=== PATIENT | female | born 1945 | race Two or more races ===

== ENCOUNTER → 2022-04-12 10:01 | Outpatient (BNVA) | payer MEDICARE, SELFPAY | PROVIDERS: PCP Internal Medicine; Visit Provider Internal Medicine Endocrinology, Diabetes & Metabolism | DX: E11.29 Type 2 diabetes mellitus with other diabetic kidney complication (principal) | CPT/HCPCS: 82947; 99202 ==

== ENCOUNTER → 2022-04-13 12:56 | Outpatient (BNVA) | payer MEDICARE, SELFPAY | PROVIDERS: PCP Internal Medicine; Visit Provider Registered Nurse Diabetes Educator | DX: E11.29 Type 2 diabetes mellitus with other diabetic kidney complication (principal) | CPT/HCPCS: 99211 ==

== ENCOUNTER → 2022-05-15 12:51 | Outpatient (BNVA) | payer MEDICARE, SELFPAY | PROVIDERS: PCP Internal Medicine; Visit Provider Registered Nurse Diabetes Educator | DX: E11.29 Type 2 diabetes mellitus with other diabetic kidney complication (principal) | CPT/HCPCS: 99211 ==

== ENCOUNTER → 2022-05-23 10:54 | Outpatient (BNVA) | payer MEDICARE, SELFPAY | PROVIDERS: PCP Internal Medicine; Visit Provider Dietitian, Registered | DX: E11.29 Type 2 diabetes mellitus with other diabetic kidney complication (principal); Z71.3 Dietary counseling and surveillance | CPT/HCPCS: 97802 ==

== ENCOUNTER 2022-07-17 09:59 | Outpatient (REF) | payer MEDICARE, SELFPAY ==
[2022-07-17 11:36] LABS: Cholesterol 196 mg/dL; HDL Cholesterol 52 mg/dL; LDL Cholesterol Calculated 112 mg/dl; Triglycerides 161 mg/dL
== END 2022-07-17 10:00 | disposition home or self-care (01) ==
LOC: HO.LAB 09:59
PROVIDERS: PCP Internal Medicine; Visit Provider Internal Medicine Endocrinology, Diabetes & Metabolism
DX: E11.29 Type 2 diabetes mellitus with other diabetic kidney complication (principal)
CPT/HCPCS: 36415; 80061

== ENCOUNTER → 2022-07-20 08:15 | Outpatient (BNVA) | payer MEDICARE, SELFPAY | PROVIDERS: PCP Internal Medicine; Visit Provider Internal Medicine Endocrinology, Diabetes & Metabolism | DX: E11.29 Type 2 diabetes mellitus with other diabetic kidney complication (principal) | CPT/HCPCS: 82947; 83036; 99212 ==

== ENCOUNTER → 2022-08-03 10:48 | Outpatient (BNVA) | payer MEDICARE, SELFPAY | PROVIDERS: PCP Internal Medicine; Visit Provider Dietitian, Registered | DX: E11.29 Type 2 diabetes mellitus with other diabetic kidney complication (principal) | CPT/HCPCS: 97803 ==

== ENCOUNTER → 2022-08-06 10:18 | Outpatient (BNVA) | payer MEDICARE, SELFPAY | PROVIDERS: PCP Internal Medicine; Visit Provider Registered Nurse Diabetes Educator | DX: E11.29 Type 2 diabetes mellitus with other diabetic kidney complication (principal) | CPT/HCPCS: 99211 ==

== ENCOUNTER → 2022-08-29 10:24 | Outpatient (BNVA) | payer MEDICARE, SELFPAY | PROVIDERS: PCP Internal Medicine; Visit Provider Registered Nurse Diabetes Educator | DX: E11.29 Type 2 diabetes mellitus with other diabetic kidney complication (principal) | CPT/HCPCS: 99211 ==

== ENCOUNTER → 2022-09-24 09:20 | Outpatient (BNVA) | payer MEDICARE, SELFPAY | PROVIDERS: PCP Internal Medicine; Visit Provider Registered Nurse Diabetes Educator | DX: E11.29 Type 2 diabetes mellitus with other diabetic kidney complication (principal) | CPT/HCPCS: 99211 ==

== ENCOUNTER 2022-10-22 10:14 | Outpatient (REF) | payer MEDICARE, SELFPAY ==
[2022-10-22 12:04] LABS: Alanine Aminotransferase 43 U/L (0-31); Albumin Level 3.8 g/dL (3.5-5.0); Alkaline Phosphatase 135 U/L (39-117); Aspartate Amino Transferase 40 U/L (5-31); Bilirubin Direct < 0.2 mg/dL (0.0-0.5); Bilirubin Total 0.3 mg/dL (0.0-1.0); Cholesterol 177 mg/dL; HDL Cholesterol 52 mg/dL; LDL Cholesterol Calculated 92 mg/dl; Total Protein 6.8 g/dL (6.5-8.0); Triglycerides 167 mg/dL
== END 2022-10-22 10:15 | disposition home or self-care (01) ==
LOC: HO.LAB 10:14
PROVIDERS: PCP Internal Medicine; Visit Provider Internal Medicine Endocrinology, Diabetes & Metabolism
DX: E11.29 Type 2 diabetes mellitus with other diabetic kidney complication (principal)
CPT/HCPCS: 36415; 80061; 80076

== ENCOUNTER → 2022-10-23 08:20 | Outpatient (BNVA) | payer MEDICARE, SELFPAY | PROVIDERS: PCP Internal Medicine; Visit Provider Internal Medicine Endocrinology, Diabetes & Metabolism | DX: E11.22 Type 2 diabetes mellitus with diabetic chronic kidney disease (principal); N18.32 Chronic kidney disease, stage 3b; E11.649 Type 2 diabetes mellitus with hypoglycemia without coma; Z79.4 Long term (current) use of insulin; Z79.84 Long term (current) use of oral hypoglycemic drugs | CPT/HCPCS: 82947; 83036; 99212 ==

== ENCOUNTER → 2022-11-19 11:24 | Outpatient (BNVA) | payer MEDICARE, SELFPAY | PROVIDERS: PCP Student in an Organized Health Care Education/Training Program; Visit Provider Dietitian, Registered | DX: E11.29 Type 2 diabetes mellitus with other diabetic kidney complication (principal); N28.9 Disorder of kidney and ureter, unspecified; Z79.4 Long term (current) use of insulin; Z71.3 Dietary counseling and surveillance | CPT/HCPCS: 97803 ==

== ENCOUNTER → 2023-01-28 08:42 | Outpatient (BNVA) | payer MEDICARE, SELFPAY | PROVIDERS: PCP Student in an Organized Health Care Education/Training Program; Visit Provider Registered Nurse Diabetes Educator ==

== ENCOUNTER 2023-01-28 09:02 | Outpatient (REF) | payer MEDICARE, SELFPAY ==
[2023-01-28 11:42] LABS: Creatinine Urine 151.52 mg/dL
[2023-01-28 12:14] LABS: Anion Gap 14 (12-20); Blood Urea Nitrogen 45 mg/dL (9-16); Calcium 9.4 mg/dL (8.4-10.2); Carbon Dioxide 23 mmol/L (22-29); Chloride 109 mmol/L (96-108); Estimated Glomerular Filt Rate 26; Glucose Random 202 mg/dL (60-115); Sodium 141 mmol/L (135-145)
[2023-01-28 12:21] LABS: Microalbum/Creatinine Ratio Ur 1319.9 ug/mg cr; Microalbumin Urine > 2000.0 mg/L
== END 2023-01-28 09:03 | disposition home or self-care (01) ==
LOC: HO.10HDL 09:02
PROVIDERS: Visit Provider Internal Medicine Endocrinology, Diabetes & Metabolism
DX: E11.29 Type 2 diabetes mellitus with other diabetic kidney complication (principal)
CPT/HCPCS: 36415; 80048; 82043; 99211

== ENCOUNTER → 2023-02-05 09:13 | Outpatient (BNVA) | payer MEDICARE, SELFPAY | PROVIDERS: PCP Student in an Organized Health Care Education/Training Program; Visit Provider Internal Medicine Endocrinology, Diabetes & Metabolism | DX: E11.29 Type 2 diabetes mellitus with other diabetic kidney complication (principal) | CPT/HCPCS: 82947; 83036; 99212 ==

== ENCOUNTER 2023-04-29 13:10 | Outpatient (AMB) | payer MEDICARE, SELFPAY ==
--- NOTE | 2023-04-29 13:50 | A.OFFVIS_ITS ---
Intake Intake Visit Reasons: DM Allergies No Known Allergies Allergy (Verified 02/05/23 09:29) HPI Comprehensive Diabetes Asmnt Most Recent Diabetes Results: Microalb/Creat Ratio 1319.9 ug/mg cr 01/28/23 Cholesterol 177 mg/dL 10/22/22 HDL Cholesterol 52 mg/dL 10/22/22 Triglycerides 167 mg/dL 10/22/22 Creatinine 1.89 mg/dL (0.5-1.4) H 01/28/23 Blood Urea Nitrogen 45 mg/dL (9-16) H 01/28/23 Sodium 141 mmol/L (135-145) 01/28/23 Potassium 5.0 mmol/L (3.3-5.1) 01/28/23 Chloride 109 mmol/L (96-108) H 01/28/23 Carbon Dioxide 23 mmol/L (22-29) 01/28/23 Calcium 9.4 mg/dL (8.4-10.2) 01/28/23 AST 40 U/L (5-31) H 10/22/22 ALT 43 U/L (0-31) H 10/22/22 Total Protein 6.8 g/dL (6.5-8.0) 10/22/22 Albumin 3.8 g/dL (3.5-5.0) 10/22/22 [facility] Medical History (Updated 04/12/22 @ 10:21 by Freddie Padron MD) Type 2 diabetes mellitus with renal manifestations Surgical History History of colonoscopy History of hysterectomy History of surgery Hx of cholecystectomy Hx of microdiscectomy Family History Mother Diabetes High blood pressure Father Liver failure Social History Household Members: Spouse Alcohol intake: never Patient Tobacco Use Status: Never used Tobacco Assessment & Plan Assessment & Plan (1) Type 2 diabetes mellitus with renal manifestations: Code(s): E11.29 - Type 2 diabetes mellitus with other diabetic kidney complication Plan: Personal Continuous Glucose Monitor: Patients CGM information reviewed Reviewed patient's sensor data: Hypoglycemia: ? 5% Hyperglycemia:? 23% Time in Range:? 62% Average glucose for the last 2 weeks? 162 mg/dL Patient is taking Lantus 16 units daily Apidra 8-10 units before meals Patient has multiple episodes of hypoglycemia, both overnight and post meal Patient does report that she takes mealtime insulin up to 30 minutes before meals, reviewed with patient action of Apidra, instructed patient to mealtime insulin to 5 minutes prior to eating In addition instructed patient to reduce Lantus from 16 units to 14 units Reviewed how to treat low blood sugars with rule of 15s Reviewed how to interpret trend arrows Reminded patient that to check finger sticks if symptoms do not match sensor reading. Discussed lag time between finger stick and sensor data.? Patient able to insert sensor independently at home without issue.? Patient Instructions: Patient will follow-up with community nutrition educator in 1 month Coding Level of Care Code Est Pt Level 1 (50974) Diagnoses Type 2 diabetes mellitus with renal manifestations E11.29
== END 2023-04-29 13:58 | disposition home or self-care (01) ==
PROVIDERS: PCP Student in an Organized Health Care Education/Training Program; Referring Provider Internal Medicine Endocrinology, Diabetes & Metabolism; Visit Provider Registered Nurse Diabetes Educator
DX: E11.29 Type 2 diabetes mellitus with other diabetic kidney complication (principal)

== ENCOUNTER → 2023-04-29 13:10 | Outpatient (BNVA) | payer MEDICARE, SELFPAY | PROVIDERS: Visit Provider Registered Nurse Diabetes Educator | DX: E11.29 Type 2 diabetes mellitus with other diabetic kidney complication (principal) | CPT/HCPCS: 99211 ==

== ENCOUNTER 2023-05-30 13:45 | Outpatient (AMB) | payer MEDICARE, SELFPAY ==
--- NOTE | 2023-05-30 13:57 | A.OFFVIS_ITS ---
Intake Intake Visit Reasons: DM/confirmed District Supervisor Required: No Accompanied by: Self / Same As Patient Allergies No Known Allergies Allergy (Verified 02/05/23 09:29) HPI Comprehensive Diabetes Asmnt Most Recent Diabetes Results: Microalb/Creat Ratio 1319.9 ug/mg cr 01/28/23 Cholesterol 177 mg/dL 10/22/22 HDL Cholesterol 52 mg/dL 10/22/22 Triglycerides 167 mg/dL 10/22/22 Creatinine 1.89 mg/dL (0.5-1.4) H 01/28/23 Blood Urea Nitrogen 45 mg/dL (9-16) H 01/28/23 Sodium 141 mmol/L (135-145) 01/28/23 Potassium 5.0 mmol/L (3.3-5.1) 01/28/23 Chloride 109 mmol/L (96-108) H 01/28/23 Carbon Dioxide 23 mmol/L (22-29) 01/28/23 Calcium 9.4 mg/dL (8.4-10.2) 01/28/23 AST 40 U/L (5-31) H 10/22/22 ALT 43 U/L (0-31) H 10/22/22 Total Protein 6.8 g/dL (6.5-8.0) 10/22/22 Albumin 3.8 g/dL (3.5-5.0) 10/22/22 [facility] Medical History (Updated 04/12/22 @ 10:21 by Freddie Padron MD) Type 2 diabetes mellitus with renal manifestations Surgical History History of colonoscopy History of hysterectomy History of surgery Hx of cholecystectomy Hx of microdiscectomy Family History Mother Diabetes High blood pressure Father Liver failure Social History Household Members: Spouse Alcohol intake: never Patient Tobacco Use Status: Never used Tobacco Assessment & Plan Assessment & Plan (1) Type 2 diabetes mellitus with renal manifestations: Code(s): E11.29 - Type 2 diabetes mellitus with other diabetic kidney complication Plan: Personal Continuous Glucose Monitor: Did not bring meter to today's visit Patient reports she is feeling overwhelmed by the amount of appointments that she and her both have. 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 Patient reports she feels that her hypoglycemia has resolved. Instructed patient it is fine not to set up additional appointments. If she has questions or she feels she needs to be seen again she can always call and schedule an appointment. Asked patient to contact Diabetes Education nurse or provider if hypoglycemic events increase Patient Instructions: Patient will call Coding Level of Care Code Est Pt Level 1 (69547) Diagnoses Type 2 diabetes mellitus with renal manifestations E11.29
== END 2023-05-30 14:07 | disposition home or self-care (01) ==
PROVIDERS: PCP Student in an Organized Health Care Education/Training Program; Visit Provider Registered Nurse Diabetes Educator
DX: E11.29 Type 2 diabetes mellitus with other diabetic kidney complication (principal)

== ENCOUNTER → 2023-05-30 13:45 | Outpatient (BNVA) | payer MEDICARE, SELFPAY | PROVIDERS: PCP Student in an Organized Health Care Education/Training Program; Visit Provider Registered Nurse Diabetes Educator | DX: E11.29 Type 2 diabetes mellitus with other diabetic kidney complication (principal) | CPT/HCPCS: 99211 ==

== ENCOUNTER 2023-07-27 15:36 | Emergency (ER) | payer MEDICARE, SELFPAY ==
--- NOTE | ~2023-07-27 | XR_ITS ---
EXAMINATION: XR LUMBOSACRAL SPINE CLINICAL INFORMATION: Pain, no injury. COMPARISON: None available. TECHNIQUE: Three views of the lumbosacral spine. FINDINGS: Right apical scoliosis. No evidence of acute compression deformity or traumatic subluxation. Multilevel severe intervertebral disc height loss with osteophyte complexes and facet arthropathy leading to various degrees of neural foraminal encroachment and central canal stenosis, more pronounced at L5-S1. SI joints are symmetric. No significant paraspinal soft tissue abnormality. XR/XR lumbar spine 2-3V IMPRESSION: 1. No acute compression deformity or malalignment. 2. Severe lumbar spondylosis.
[2023-07-27 15:48] VITALS: BP 157/69; PULSE 86; RESP 18; TEMP 36.6; O2SAT 97; BMI 30.1
--- NOTE | 2023-07-27 15:49 | ED_ITS ---
HPI - General Adult General Chief complaint: Back Pain/Injury Stated complaint: back pain ?uti Time Seen by Provider: 07/27/23 18:43 Source: patient Mode of arrival: ambulatory Limitations: no limitations History of Present Illness HPI narrative: 77 yo female with history of DM, HTN, HLD here with complaints of lower back pain x 3 months now progressing with difficulty ambulating, has been seen by physical therapy, plans for outpatient MRI (waiting for appt). patient denies any associated numbness, tingling, weakness of the extremities. No numbness the groin. No bowel or bladder incontinence. No fevers or chills. Patient is taking Tylenol home with continued symptoms. She has also tried taking gabapentin 100 mg at home but having continued pain. Related Data Home Medications Medication Instructions Recorded Confirmed amlodipine 10 mg tablet 10 mg PO DAILY 04/12/22 07/27/23 gabapentin 100 mg capsule 100 mg PO TID 04/12/22 07/27/23 pen needle, diabetic 31 gauge x #50 ea 04/12/22 10/23/22 3/16 (Unifine Pentips Plus) pioglitazone 15 mg tablet 15 mg PO DAILY 04/12/22 07/27/23 ursodiol 500 mg tablet 500 mg PO BID 04/12/22 07/27/23 primidone 50 mg tablet (Mysoline) 50 mg PO 07/20/22 10/23/22 insulin glargine 100 unit/mL (3 16 unit subcut QPM 02/05/23 07/27/23 mL) subcutaneous pen (Lantus Solostar U-100 Insulin) Previous Rx's Medication Instructions Recorded blood-glucose meter (FreeStyle #1 ea 04/12/22 Lite Meter kit) blood sugar diagnostic (FreeStyle #10 ea 08/03/22 Lite Strips) lancets 28 gauge (FreeStyle #100 ea 08/03/22 Lancets) insulin glulisine U-100 100 8 unit (0.08 mL) subcut TIDWMEAL 01/02/23 unit/mL subcutaneous pen (Apidra #15 mL SoloStar U-100 Insulin) pen needle, diabetic 32 gauge x #100 ea 05/06/23 (BD Doreen 2nd Gen Pen Needle) atorvastatin 20 mg tablet 20 mg PO DAILY #30 tabs 06/14/23 flash glucose sensor (FreeStyle #2 ea 07/08/23 Brittnee 2 Sensor kit) flash glucose scanning reader #1 ea 07/18/23 (FreeStyle Brittnee 2 Burnett) acetaminophen 325 mg tablet 650 mg (2 x 325 mg) PO Q6H PRN 07/27/23 pain #30 tabs ibuprofen 600 mg tablet 600 mg PO Q6H PRN pain #20 tabs 07/27/23 lidocaine 5 % topical patch 1 patch topical DAILY #15 ea 07/27/23 Allergies Allergy/AdvReac Type Severity Reaction Status Date / Time No Known Allergies Allergy Verified 02/05/23 09:29 Review of Systems 2 Review of Systems: Yes all other systems are reviewed and are negative Constitutional: Constitutional: Reports no additional constitutional complaints, Denies body ache(s), Denies chills, Denies fever(s), Denies headache(s) and Denies weakness Eyes: Eyes: Reports no additional eye complaints and Denies change in vision ENT: Reports system reviewed and no additional complaints, except as documented, Denies dizziness, Denies headache(s), Denies nasal congestion, Denies nasal discharge and Denies neck pain Cardiovascular: Cardiovascular: Reports no additional cardiovascular complaints, Denies chest pain, Denies leg edema and Denies dyspnea Respiratory: Respiratory: Reports no additional respiratory complaints, Denies cough and Denies dyspnea Gastrointestinal: Gastrointestinal: Reports no additional gastrointestinal complaints, Denies abdominal pain, Denies diarrhea, Denies nausea and Denies vomiting Genitourinary: Genitourinary: Reports no additional female genitourinary complaints and Denies urinary incontinence Musculoskeletal: Musculoskeletal: Reports no additional musculoskeletal complaints, Reports back pain, Denies arthralgias, Denies joint swelling, Denies neck pain, Denies numbness and Denies tingling Integumentary/Breasts: Skin/Breast: Reports system reviewed and no additional complaints, except as docu and Denies rash Neurologic: Reports system reviewed and no additional complaints, except as documented, Denies Abnormal speech present, Denies dizziness, Denies headache(s), Denies numbness, Denies tingling and Denies weakness PMFSH Past Medical History Attestation statement: The following information was validated with the patient. Source: old records reviewed and nursing notes reviewed Medical History Type 2 diabetes mellitus with renal manifestations Surgical History History of surgery Hx of cholecystectomy History of hysterectomy Hx of microdiscectomy History of colonoscopy Family History Family History Mother Diabetes High blood pressure Father Liver failure Social History Social History Household Members: Spouse Alcohol intake: never Patient Tobacco Use Status: Never used Tobacco Smoked in Last 30 Days: No Use of substances other than those prescribed or required for medical reasons: No Advance Directives: No Advance Directives Information Provided: Yes Physical Exam ED Vital Signs: Vital Signs - 24 hr 07/27/23 15:48 07/27/23 18:17 Temperature 97.8 F 98.2 F Pulse Rate 86 64 Respiratory Rate 18 18 Blood Pressure 157/69 H 175/71 H Pulse Oximetry 97 99 Oxygen Delivery Method Room Air Room Air BMI result Body Mass Index 30.1 Const General: cooperative, healthy appearing, comfortable and no acute distress Orientation/consciousness: patient oriented x3 Limitations: no limitations HENMT Head: Yes normal to inspection Ears: hearing grossly normal bilaterally General nose exam: Normal external nose present Face and sinus: Yes normal facial exam Mouth: Normal oral and palatal mucosa present Throat: Yes posterior oropharynx normal Eyes General: appearance normal, both eyes and all related structures Pupils: Equal, round and reactive pupils present Neck Neck: Yes normal visual inspection Chest Chest palpation & inspection: normal inspection of the chest Resp Effort & Inspection: normal respiratory effort Auscultation: clear to auscultation bilaterally Cardio Rate: regular rate Rhythm: regular rhythm Peripheral pulses: Peripheral pulses 2+ throughout GI Inspection: Yes normal to inspection Palpation (GI): Soft to palpation and nontender Auscultation: normal bowel sounds Back/Spine/Pelvis Other: There is tenderness palpation to the lumbar mid spine and soft tissue areas with no step-offs deformities. There is pain that is worsened with bilateral straight leg raise. Thoracic/Lumbar Spine: thoracic and lumbar spine normal to inspection Skin General skin exam: no rashes or lesions noted Neuro General: patient oriented x3, no focal motor deficits and normal sensation to monofilament Cranial nerves: Yes Equal, round and reactive pupils present Cognition (Neuro): normal cognition Speech: No Abnormal speech present Gait exam (Neuro): Normal gait present Motor exam (neuro): 5/5 motor strength present throughout Sensory Exam: Normal double simultaneous stimulation for sensation Deep tendon reflexes (DTR's): Right patellar reflex intensity grade: 2+ and Left patellar reflex intensity grade: 2+ Extrem General: Yes normal to inspection Course Course Course Narrative: This is a rapid medical exam. deferred additional HPI, ROS, PE to primary provider. 77 yo female with history of DM, HTN, HLD here with complaints of lower back pain x 3 months now progressing with difficulty ambulating, has been seen by physical therapy, plans for outpatient MRI (waiting for appt). Arrives in Will obtain UA, lumbar x-ray VSS Reevaluation(s) Reevaluation #1: after receiving analgesia the patient was only able to get up and walk 1-2 steps. She is still quite unsteady on her feet. The daughter is concerned that if she goes home she may fall and injure herself. Therefore we will hold the patient the ER overnight. We will order a physical therapy and Case management evaluation. Placed in physician observation pending disposition Reevaluation #2: Patient's daughter now stating that she wishes to take patient home, does not want patient to stay for PT evaluation. Will discharge home with prescriptions for ibuprofen, acetaminophen, and lidocaine patches. Time: 21:19 Medications Administered Discontinued Medications Generic Name Dose Route Start Last Admin Trade Name Elliottq PRN Reason Stop Dose Admin Morphine Sulfate 4 mg 07/27/23 18:51 07/27/23 19:13 Morphine Sulfate 4 Mg/Ml Cartridge IVPUSH 07/27/23 18:52 4 mg ONCE ONE Administration Protocol Ondansetron HCl 4 mg 07/27/23 18:51 07/27/23 19:11 Ondansetron Hcl 4 Mg/2 Ml Vial IVPUSH 07/27/23 18:52 4 mg ONCE ONE Administration Medical Decision Making Medical Decision Making [facility] Narrative: 77 yo female with history of DM, HTN, HLD here with complaints of lower back pain x 3 months now progressing with difficulty ambulating, has been seen by physical therapy, plans for outpatient MRI (waiting for appt). patient denies any associated numbness, tingling, weakness of the extremities. No numbness the groin. No bowel or bladder incontinence. No fevers or chills. Patient is taking Tylenol home with continued symptoms. She has also tried taking gabapentin 100 mg at home but having continued pain. On exam patient has tenderness to the lumbar mid spine with no step-offs or deformities. There is no neurological deficits or red flag symptoms. Patient is having difficulty ambulating. 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 We will obtain a lumbar x-ray, UA, labs. Will provide analgesia with hopes that we can get the patient up and ambulating so she can be discharged home to follow-up with her primary outpatient Differential Diagnosis Differential Diagnoses: The differential diagnosis associated with the presentation includes herniated discs, lumbar strain low concern for cord compression, cauda equina, malignancy, epidural abscess with no reports of IV drug abuse, immunocompromised state with a normal neurological exam Low concern for fracture with no reports of trauma Low concern for AAA with gradual onset of symptoms Low concern for renal colic, pyelonephritis with normal UA, no CVA tenderness on exam reported urinary symptoms Admission/Observation Consideration of admission/observation: Escalation of care including admission/observation considered Lab Data MDM Lab Attestation statement: I reviewed the patient's lab results. UA shows trace leuks otherwise unremarkable labs show chronic kidney disease unchanged from baseline 07/27/23 19:48 07/27/23 19:48 Labs: Lab Results 07/27/23 07/27/23 Range/Units 18:23 19:48 WBC 7.9 (4.8-10.8) X10*3/uL RBC 3.43 L (4.20-5.50) X10*6/uL Hgb 10.8 L (12.0-16.0) g/dl Hct 32.0 L (37.0-47.0) % MCV 93.3 (80.0-98.0) fL MCH 31.5 (27.0-33.0) pg MCHC 33.8 (31.0-35.0) g/dl RDW 12.9 (11.0-16.0) % Plt Count 163 (160-400) X10*3/uL MPV 9.8 (9.4-12.3) fL Immature Gran % (Auto) 0.3 (0.0-0.4) % Neut % (Auto) 53.5 (45-73) % Lymph % (Auto) 37.6 (20-40) % [place] % (Auto) 6.7 (2-11) % Eos % (Auto) 1.3 (0-4) % Baso % (Auto) 0.6 (0-2) % Lymph # (Auto) 3.0 (1.2-4.9) X10*3/uL [place] # (Auto) 0.5 (0.1-1.2) X10*3/uL Eos # (Auto) 0.1 (0.0-0.4) X10*3/uL Baso # (Auto) 0.1 (0.0-0.2) X10*3/uL Abs Immat Gran (auto) 0.02 (0.00-0.03) X10*3/uL Absolute Neuts (auto) 4.3 (2.0-8.3) x10*3/uL Absolute Nucleated RBC 0.000 (0.0-0.012) X10*3/uL Nucleated RBC % (auto) 0.0 (0.0-0.2) /100WBC Sodium 141 (135-145) mmol/L Potassium 4.9 (3.3-5.1) mmol/L Chloride 110 H (96-108) mmol/L Carbon Dioxide 22 (22-29) mmol/L Anion Gap 14 (12-20) BUN 40 H (9-16) mg/dL Creatinine 1.64 H (0.5-1.4) mg/dL Estim Creat Clear Calc 28.2 Estimated GFR 30 Random Glucose 99 (60-115) mg/dL Calcium 9.3 (8.4-10.2) mg/dL Urine Color Yellow Urine Appearance Clear Urine pH 5.5 (5.0-9.0) Ur Specific [place] 1.010 (1.005-1.025) Urine Protein 300 (3+) H (Neg-Trace) mg/dL Urine Glucose (UA) Negative (Negative) mg/dL Urine Ketones Negative (Negative) mg/dL Urine Blood Negative (Negative) Urine Nitrite Negative (Negative) Ur Leukocyte Esterase Trace H (Negative) Urine RBC 0-2 (0-2) /HPF Urine WBC 0-5 (0-5) /HPF Ur Squamous Epith Cells 0-2 (0-2) /HPF Urine Bacteria None Seen (None Seen) Hyaline Casts 0-2 (0-2) /LPF Independent Interpretation I performed an independent interpretation of an: Plain X-Ray Interpretation: I independently reviewed the x-ray and agree with Radiology report Radiology Impression Discussion of test interpretation with radiology: I have reviewed the radiologist's reading. Radiologist Impression: [address] [address] XRay Report Signed Patient: Rebekah Blackwood MR#: [id number] : 1945 Acct:[id number] Age/Sex: 77 / F ADM Date: 07/27/23 Loc: HO.ED Attending Dr: Ordering Physician: Astrid Hopper NP Date of Service: 07/27/23 Procedure(s): XR lumbar spine 2-3V Accession Number(s): [id number] cc: Luci Murillo; Astrid Hopper NP~ EXAMINATION: XR LUMBOSACRAL SPINE CLINICAL INFORMATION: Pain, no injury. COMPARISON: None available. TECHNIQUE: Three views of the lumbosacral spine. FINDINGS: Right apical scoliosis. No evidence of acute compression deformity or traumatic subluxation. Multilevel severe intervertebral disc height loss with osteophyte complexes and facet arthropathy leading to various degrees of neural foraminal encroachment and central canal stenosis, more pronounced at L5-S1. SI joints are symmetric. No significant paraspinal soft tissue abnormality. XR/XR lumbar spine 2-3V IMPRESSION: 1. No acute compression deformity or malalignment. 2. Severe lumbar spondylosis. Independent Historian Clinical information obtained from an independent historian. History obtained from or confirmed by: Other ( daughter) Tests considered The following testing was considered but not selected: no neurological findings on exam, no neurological red flag symptoms suggest need for emergent MRI Chronic Conditions Patient?s care impacted by: Diabetes Discharge Plan Discharge Clinical Impression: Strain of lumbar region Patient Disposition: Home, Self-Care Instructions: Low Back Strain (ED) Additional Instructions: You were evaluated in the emergency department today for back pain. Your evaluation did not show signs of medical conditions requiring emergent intervention at this time. We recommended that you use ibuprofen or Tylenol per package directions every 6 hours as needed for pain. If necessary, you can alternate these medications so that you take one medication every 3 hours. For instance, at noon take ibuprofen, then at 3:00 p.m. take Tylenol, then at 6:00 p.m. take ibuprofen. You have been prescribed 5% topical lidocaine patches which you can wear for up to 12 hours in a 24 hour period. Do not apply heat directly over the patches. Please schedule an appointment for follow-up with your primary care physician this week for further evaluation of your symptoms. Return to the emergency department if you experience worsening back pain, difficulty walking, fevers, numbness, tingling, incontinence, groin numbness or tingling, or any other concerning symptoms. Prescriptions: New acetaminophen 325 mg tablet 650 mg PO Q6H PRN (Reason: pain) Qty: 30 0RF ibuprofen 600 mg tablet 600 mg PO Q6H PRN (Reason: pain) Qty: 20 0RF lidocaine 5 % adhesive patch,medicated 1 patch topical DAILY Qty: 15 0RF Rx Instructions: leave on most painful area for up to 12 hrs No Action (DME) lancets [FreeStyle Lancets] 28 gauge misc See Rx Instructions topical DAILY Qty: 100 5RF Rx Instructions: As directed tests 4x/day (DME) FreeStyle Lite Strips Strip See Rx Instructions .ROUTE TID Qty: 10 4RF Rx Instructions: As directed tests 4 X/day Apidra SoloStar U-100 Insulin 100 unit/mL insulin pen 8 unit subcut TIDWMEAL Qty: 15 6RF (DME) pen needle, diabetic [BD Doreen 2nd Gen Pen Needle] 32 gauge x 5/32 needle See Rx Instructions .ROUTE .COMPLEX Qty: 100 5RF Dose Instruction: USE FOUR TIMES A DAY DIRECTED Rx Instructions: USE FOUR TIMES A DAY DIRECTED atorvastatin 20 mg tablet 20 mg PO DAILY Qty: 30 4RF (DME) FreeStyle Brittnee 2 Sensor Kit See Rx Instructions .Route Qty: 2 11RF Rx Instructions: As directed (DME) FreeStyle Brittnee 2 Burnett Misc See Rx Instructions .Route Qty: 1 0RF Rx Instructions: As directed amlodipine 10 mg tablet 10 mg PO DAILY ursodiol 500 mg tablet 500 mg PO BID gabapentin 100 mg capsule 100 mg PO TID (DME) pen needle, diabetic [Unifine Pentips Plus] 31 gauge x 3/16 needle See Rx Instructions .ROUTE DAILY Qty: 50 Rx Instructions: As directed pioglitazone 15 mg tablet 15 mg PO DAILY (DME) blood-glucose meter [FreeStyle Lite Meter] Kit See Rx Instructions .Route Qty: 1 0RF Rx Instructions: checks 4 X/day primidone [Mysoline] 50 mg tablet 50 mg PO Rx Instructions: 100mg in am 50mg in pm insulin glargine [Lantus Solostar U-100 Insulin] 100 unit/mL (3 mL) insulin pen 16 unit subcut QPM
[2023-07-27 18:17] VITALS: BP 175/71; PULSE 64; RESP 18; TEMP 36.8; O2SAT 99
[2023-07-27 18:31] LABS: Appearance Urine Clear; Color Urine Yellow; Glucose Urine UA Negative (Negative); Leukocyte Esterase Urine Trace (Negative); Nitrite Urine Negative (Negative); PH 5.5 (5.0-9.0); UMIC TRIGGER UACC YES; Urine Blood Negative (Negative); Urine Ketones Negative (Negative); Urine Protein 300 (3+) mg/dL (Neg-Trace)
[2023-07-27 18:36] LABS: Bacteria Urine None Seen (None Seen); Hyaline Casts Urine 0-2 /LPF (0-2); RBC Urine 0-2 /HPF (0-2); Squamous Epithelial Cell Urine 0-2 /HPF (0-2); WBC Urine 0-5 /HPF (0-5)
[2023-07-27] MEDS: ondansetron HCL 4 MG/2 ML VIAL IVPUSH (19:11)
[2023-07-27] MEDS: Morphine Sulfate 4 MG/ML CARTRIDGE IVPUSH (19:13)
[2023-07-27 19:53] LABS: MANUAL DIFF FLAG NO
[2023-07-27 19:55] LABS: Basophils Absolute Auto 0.1 X10*3/uL (0.0-0.2); Basophils Percent Auto 0.6 % (0-2); Eosinophils Absolute Auto 0.1 X10*3/uL (0.0-0.4); Eosinophils Percent Auto 1.3 % (0-4); Hemoglobin 10.8 g/dl (12.0-16.0); Imm Gran Abs Auto 0.02 X10*3/uL (0.00-0.03); Imm Gran Pct Auto 0.3 % (0.0-0.4); Lymphocytes Percent Auto 37.6 % (20-40); Mean Corpuscular HGB Conc 33.8 g/dl (31.0-35.0); Mean Corpuscular Hemoglobin 31.5 pg (27.0-33.0); Mean Corpuscular Volume 93.3 fL (80.0-98.0); Mean Platelet Volume 9.8 fL (9.4-12.3); Monocytes Absolute Auto 0.5 X10*3/uL (0.1-1.2); Monocytes Percent Auto 6.7 % (2-11); Neutrophils Absolute Auto 4.3 x10*3/uL (2.0-8.3); Neutrophils Percent Auto 53.5 % (45-73); Platelet Count 163 X10*3/uL (160-400); Red Blood Count 3.43 X10*6/uL (4.20-5.50); Red Cell Distribution Width 12.9 % (11.0-16.0); White Blood Count 7.9 X10*3/uL (4.8-10.8)
[2023-07-27 20:14] LABS: Anion Gap 14 (12-20); Blood Urea Nitrogen 40 mg/dL (9-16); Calcium 9.3 mg/dL (8.4-10.2); Carbon Dioxide 22 mmol/L (22-29); Chloride 110 mmol/L (96-108); Creatinine Clr Calc Pharmacy 28.2; Estimated Glomerular Filt Rate 30; Glucose Random 99 mg/dL (60-115); Potassium 4.9 mmol/L (3.3-5.1); Sodium 141 mmol/L (135-145)
== END 2023-07-27 21:50 | disposition home or self-care (01) ==
PROVIDERS: Nurse Practitioner Family; Emergency Provider Student in an Organized Health Care Education/Training Program; PCP Student in an Organized Health Care Education/Training Program
DX: S39.012A Strain of muscle, fascia and tendon of lower back, initial encounter (principal); X58.XXXA Exposure to other specified factors, initial encounter; E11.9 Type 2 diabetes mellitus without complications; I10 Essential (primary) hypertension; E78.5 Hyperlipidemia, unspecified; Z79.4 Long term (current) use of insulin; Z79.899 Other long term (current) drug therapy; Y93.9 Activity, unspecified; Y92.9 Unspecified place or not applicable; Y99.9 Unspecified external cause status
CPT/HCPCS: 36415; 72100; 80048; 81001; 85025; 96374; 96375; 99284; 99285; J2270; J2405

== ENCOUNTER 2023-09-30 13:30 | Outpatient (AMB) | payer MEDICARE, SELFPAY ==
--- NOTE | 2023-09-30 13:31 | MHC.OFFVIS ---
Intake Vital Signs 09/30/23 13:32 Height 5 ft 3 in Weight 163 lb 9.328 oz BMI 29.0 BP 150/68 H Blood Pressure Location Lt brachial Position Sitting Pulse 58 Pulse Source Pulse Oximeter Intake Visit Reasons: DM-lvm Intake Note: Patient present today to follow up on Type 2 Diabetes Mellitus. Last Diabetic Eye exam: 05/2023 Last Podiatry Visit: None Random Glucose: 128mg/dl HgA1C: 7.9% Bag Machine Tender Required: No Accompanied by: Self / Same As Patient Allergies No Known Allergies Allergy (Verified 09/30/23 13:38) HPI HPI Comments History of Present Illness Details 77 YO F who is seen in consultation for T2DM at the request of PCP. Initially diagnosed with T2DM in 20 yrs ago . Was initially started on treatment with metformin .Had intolerance Current regimen Glipizide 10 mg BID not taking Actos 15 mg Lantus 16 units . Apidra 10-12 units units pre meals Brittnee download shows she is wearing the Brittnee 65% of the time. Average glucose is 166 with GMI 7.3% and variability of 36% 70% range with 30% hyperglycemia and 1% hyperglycemic Reports low sugars rarely Treats lows with OJ . Checks sugar after to ensure it is rising. Treats 30 min later . Family history of T2DM in mother, brother, children . Has eyes checked yearly, last eye examhas appt 05/2023 , denies retinopathy. Denies neuropathy hs numbness in LE, ldoes not see podiatry. Has nephropathy, Not on RICH/ARB sees Omar of nephrology . . Has HLD, on statin. Denies CAD. Had diabetes education. PFS Medical History Type 2 diabetes mellitus with renal manifestations Surgical History History of surgery Hx of cholecystectomy History of hysterectomy Hx of microdiscectomy History of colonoscopy Family History Mother Diabetes High blood pressure Father Liver failure Social History Household Members: Spouse Alcohol intake: never Patient Tobacco Use Status: Never used Tobacco Physical Exam Vital Signs: Last Vital Signs Pulse 58 09/30/23 13:32 BP 150/68 H 09/30/23 13:32 BMI result Body Mass Index 29.0 Absence of Cushingoid features. Absence of acromegalic features. Neck exam reveals nl size thyroid about 15 gms. No thyroid nodules palpable. No carotid bruits present. Lungs CTA. Heart S1 S2, Reg R/R. No M/R/ G. Skin exam reveals absence of vitiligo or acanthosis nigricans. Abdominal exam reveals Soft NT/ND with NA BS. No organomegaly present. Neck Other: . Extrem Other: Visual exam of foot performed. No ulcerations or open lesions. No onchomycosis, no callouses.Pulses 2 + distally Sensation intact to monofilament exam. Vibratory sensation sensed is decreased with 128 Hz tuning fork Results AMB Hemoglobin A1c AMB Hemoglobin A1c 7.9 % Last Edit by Natali Jama on 09/30/23 13:53 Assessment & Plan Assessment & Plan (1) Type 2 diabetes mellitus with renal manifestations: Code(s): E11.29 - Type 2 diabetes mellitus with other diabetic kidney complication Plan: This is a 77-year-old female with a history of type 2 diabetes being treated with Actos and basal-bolus insulin with good adequate glycemic control and known microvascular complications namely CKD stage IIIB. Considering the patient's age and comorbidities, glycemic control is optimized. At this point, patient returned to the care of her primary care provider and returned back to endocrinology should HbA1c deteriorate Orders: Orders AMB Hemoglobin A1c Today E11.29 - Type 2 diabetes mellitus with other diabetic kidney complication Coding Level of Care Code Est Pt Level 4 (91793) Diagnoses Type 2 diabetes mellitus with renal manifestations E11.29
[2023-09-30 13:32] VITALS: BP 150/68; PULSE 58; BMI 29.0
[2023-09-30 13:47] LABS: Glucose, Whole Blood 128 mg/dL (60-115)
== END 2023-09-30 15:33 | disposition home or self-care (01) ==
PROVIDERS: PCP Student in an Organized Health Care Education/Training Program; Visit Provider Internal Medicine Endocrinology, Diabetes & Metabolism
DX: E11.29 Type 2 diabetes mellitus with other diabetic kidney complication (principal)
CPT/HCPCS: 99214

== ENCOUNTER → 2023-09-30 13:30 | Outpatient (BNVA) | payer MEDICARE, SELFPAY | PROVIDERS: PCP Student in an Organized Health Care Education/Training Program; Visit Provider Internal Medicine Endocrinology, Diabetes & Metabolism | DX: E11.29 Type 2 diabetes mellitus with other diabetic kidney complication (principal) | CPT/HCPCS: 82947; 83036; 99212 ==

== ENCOUNTER 2024-03-09 14:21 | Outpatient (REF) | payer MEDICARE, SELFPAY ==
--- NOTE | ~2024-03-09 | XR_ITS ---
EXAMINATION: XR SHOULDER, RIGHT XR HUMERUS, RIGHT XR ELBOW, RIGHT CLINICAL INFORMATION: Pain status-post fall. COMPARISON: None available. TECHNIQUE: AP external rotation, Grashey, scapular Y, and axillary views of the right shoulder. AP and lateral views of the right humerus. AP, lateral, and oblique views of the right elbow. FINDINGS: Bony alignment and mineralization are normal. The glenohumeral joint is intact. The acromioclavicular and coracoclavicular intervals are normal. There is a distal acromial undersurface osteophyte. There is calcific tendinitis of the right rotator cuff insertion. No fracture or dislocation is seen. There is no right elbow joint effusion. No foreign body is noted. XR/XR humerus RT IMPRESSION: 1. There is calcific tendinitis of the right rotator cuff insertion. 2. No fracture or dislocation is seen. 3. There is no right elbow joint effusion.
--- NOTE | ~2024-03-09 | XR_ITS ---
EXAMINATION: XR SHOULDER, RIGHT XR HUMERUS, RIGHT XR ELBOW, RIGHT CLINICAL INFORMATION: Pain status-post fall. COMPARISON: None available. TECHNIQUE: AP external rotation, Grashey, scapular Y, and axillary views of the right shoulder. AP and lateral views of the right humerus. AP, lateral, and oblique views of the right elbow. FINDINGS: Bony alignment and mineralization are normal. The glenohumeral joint is intact. The acromioclavicular and coracoclavicular intervals are normal. There is a distal acromial undersurface osteophyte. There is calcific tendinitis of the right rotator cuff insertion. No fracture or dislocation is seen. There is no right elbow joint effusion. No foreign body is noted. XR/XR shoulder RT min 2V IMPRESSION: 1. There is calcific tendinitis of the right rotator cuff insertion. 2. No fracture or dislocation is seen. 3. There is no right elbow joint effusion.
--- NOTE | ~2024-03-09 | XR_ITS ---
EXAMINATION: XR SHOULDER, RIGHT XR HUMERUS, RIGHT XR ELBOW, RIGHT CLINICAL INFORMATION: Pain status-post fall. COMPARISON: None available. TECHNIQUE: AP external rotation, Grashey, scapular Y, and axillary views of the right shoulder. AP and lateral views of the right humerus. AP, lateral, and oblique views of the right elbow. FINDINGS: Bony alignment and mineralization are normal. The glenohumeral joint is intact. The acromioclavicular and coracoclavicular intervals are normal. There is a distal acromial undersurface osteophyte. There is calcific tendinitis of the right rotator cuff insertion. No fracture or dislocation is seen. There is no right elbow joint effusion. No foreign body is noted. XR/XR elbow RT min 3V IMPRESSION: 1. There is calcific tendinitis of the right rotator cuff insertion. 2. No fracture or dislocation is seen. 3. There is no right elbow joint effusion.
== END 2024-03-09 14:22 | disposition home or self-care (01) ==
LOC: HO.XRAY 14:21
PROVIDERS: PCP Student in an Organized Health Care Education/Training Program; Visit Provider Physician Assistant Medical
DX: M79.601 Pain in right arm (principal); Z91.81 History of falling
CPT/HCPCS: 73030; 73060; 73080

== ENCOUNTER 2025-04-21 17:47 | Inpatient (IN) | payer MEDICARE, SELFPAY ==
--- NOTE | ~2025-04-21 | CT_ITS ---
CLINICAL HISTORY: Abnormal x-ray recommended by radiologist --- Additional Notes or Special Instructions: Patient can not have contrast due to renal function Creat - 3.86, pt not on dialysis. CT lower extremity without right Comparison: None available Findings: No joint effusion appreciated. No fracture or malalignment. Joint spaces appear relatively well-maintained with some mild degenerative change at the tarsometatarsal junction of the 4th and 5th digits. Calcification within the peroneus longus and brevis tendons. Mild generalized edema of the lower extremity. No discrete fluid collection. No significant calcaneal spurring. Impression: 1. Generalized edema. No discrete fluid collection. No acute fracture identified. 2. No more than mild degenerative change. 3. Calcific tendinosis of the peroneus longus and brevis. This document has been electronically signed by: Tammy Curry MD on 04/22/2025 08:26:26
--- NOTE | ~2025-04-21 | US_ITS ---
EXAMINATION: Ultrasound renal bilaterally. Ultrasound renal Doppler bilaterally. CLINICAL INFORMATION: LEA and CKD. COMPARISON: Correlated to noncontrast CT dated April 21, 2025. TECHNIQUE: Real-time ultrasound kidneys using the skeletal upper technique. Color Doppler interrogation of the main renal arteries, segmental renal arteries, segmental resistive indicis and abdominal aorta at the level of the main renal arteries. FINDINGS: Right kidney: 9 x 5 x 5 cm. Increased echotexture. Renal cortical thinning. No hydronephrosis. There are multifocal, well-defined, rounded anechoic lesions throughout the renal parenchyma within exophytic distribution, the largest measures 2.8 cm. Left kidney: 8 x 4 x 4 cm. Increased echotexture. Renal cortical thinning. There are multifocal, exophytic and renal cortex anechoic lesions with thick septations, the largest measures 1.9 cm. Spectral Doppler analysis: Right Kidney: -Peak systolic velocity in the proximal right renal artery = 132 cm/s. Normal waveforms. -Peak systolic velocity in the mid right renal artery = 128 cm/s. Normal waveforms. -Peak systolic velocity in the distal right renal artery = 116 cm/s. Normal waveforms. -Patent right renal vein. -Upper pole interlobar artery resistive index of 0.8. -Midpole interlobar artery resistive index of 0.7. -Lower pole interlobar artery resistive index of 0.8. RAR right = 1.04 Left Kidney: -Peak systolic velocity in the proximal left renal artery = 54 cm/s. Normal waveforms. -Peak systolic velocity in the mid left renal artery = not identified. . -Peak systolic velocity in the distal left renal artery = 67 cm/s. Normal waveforms. -Patent left renal vein. -Upper pole interlobar artery resistive index of 0.8. -Mid pole interlobar artery resistive index of 0.7. -lower pole interlobar artery resistive index of 0.8. RAR left = 0.62 Aorta: -Peak systolic velocity = 109 cm/s. Medical renal disease. No hydronephrosis. Bosniak type I cyst, right kidney. Bosniak type II cysts, left kidney. No hemodynamically significant stenosis by ultrasound criteria at either main renal artery. Slight increased resistive indicis related to medical renal disease. Electronically signed by: Fidel Larson MD 04/22/2025 10:12 AM EDT
--- NOTE | ~2025-04-21 | CT_ITS ---
CLINICAL HISTORY: Acute kidney injury. Generalized abdominal discom CT ABDOMEN AND PELVIS WITHOUT CONTRAST COMPARISON: None provided. FINDINGS: Lack of IV contrast lowers the sensitivity of the exam. No renal calculi or hydronephrosis bilaterally. No calculi in the ureters and urinary bladder. Bilateral renal cysts are noted, for example measuring 2.8 cm and arising from the right kidney on axial image 136 of series 4. There also multiple bilateral renal lesions which measure above water density, for example seen arising from the left kidney and measuring 1.8 cm on axial image 180. Another example is seen arising from the right kidney on axial image 191 and measuring 1.7 cm. These lesions are nonspecific. Some or all of these lesions might represent proteinaceous cysts. Follow-up outpatient CT kidneys, without and with contrast, is advised. No evidence of a bowel obstruction or free air. Portions of the small bowel and colon are significantly underdistended, limiting assessment. Colonic diverticula are noted without evidence of acute diverticulitis. No definite pericolonic inflammation. Appendix is visualized, and there is no evidence of acute appendicitis. Urinary bladder is unremarkable. Uterus is absent. Tiny amount of pelvic free fluid is noted. Lung bases are unremarkable. The distal esophagus and stomach are underdistended, precluding accurate assessment. Cholecystectomy clips are present. There is a tiny amount of perihepatic ascites, for example seen on axial image 105. Liver has a cirrhotic morphology. Pancreas is grossly unremarkable. Spleen is unremarkable. Mild thickening of the adrenal glands is noted. Calcific plaque is noted in the abdominal aorta without evidence of an aneurysm. No lymphadenopathy. No evidence of a bowel containing hernia. Dextrocurvature of the lumbar spine is noted. There are degenerative changes within the hips and visualized spine. IMPRESSION: 1. No renal calculi or hydronephrosis. No calculi in the ureters and urinary bladder. 2. Multiple bilateral renal lesions measure above water density. These lesions are nonspecific. Some or all of these might represent proteinaceous cysts. Follow-up outpatient CT kidneys, without and with contrast, is advised. 3. No evidence of a bowel obstruction or free air. No pericolonic inflammation. No evidence of appendicitis. 4. Tiny amount of abdominal/pelvic free fluid is noted. Cirrhotic liver morphology is noted. 5. Additional findings are detailed above. This document has been electronically signed by: Dereje Rojo M.D. on 04/22/2025 00:48:07
--- NOTE | ~2025-04-21 | CT_ITS ---
CLINICAL HISTORY: abd pain and swelling CT abdomen and pelvis without contrast Comparison: CR - XR HIP LT MIN 2V - 04/27/25 19:35 EDT US/SR - US RENAL DOPPLER - 04/22/25 07:[address]/SR - CT ABDOMEN PELVIS WO IV CON - 04/21/25 22:39 EDT Findings: Study limited by lack of intravenous contrast. Specifically, evaluation of the vascular tree, solid abdominal organs, and gastrointestinal tract is limited without IV contrast administration. CT abdomen: Interval development of small bilateral pleural effusions with dependent consolidation within the lower lobes bilaterally. Bones are osteopenic with multilevel degenerative disc disease and degenerative facet disease throughout the visualized portions of the thoracolumbar spine. No acute fracture. Concentric wall thickening distal esophagus with small hiatal hernia. Moderate fluid distention of the stomach. Fluid-filled loops of borderline dilated small bowel are seen throughout the abdomen and pelvis. Gallbladder is surgically absent. Extensive nodularity of the periphery of the liver without discrete mass lesion on the unenhanced exam. Patency of the portal vein can not be assessed on this exam. Unenhanced spleen is unremarkable. Unenhanced pancreas and adrenal glands are unremarkable. Unchanged numerous bilateral renal lesions. Some of these are exophytic measuring up to 3 cm in size. These are not definitively to the simple cysts by noncontrast CT criteria. Increasing small volume ascites. Diffuse third-spacing with induration throughout the mesenteric fat and subcutaneous fat. CT pelvis: Numerous diverticuli throughout the colon, especially the sigmoid colon. Scattered areas of colonic wall thickening are identified. No findings of appendicitis. No definitive free air. Multifocal areas of induration are seen throughout the subcutaneous fat mesenteric fat. Increasing small volume ascites within the pelvis. IMPRESSION: 1. Study limited by lack of intravenous contrast. 2. Worsening volume overload. 3. Atelectasis versus pneumonia within the lower lobes bilaterally. 4. Fluid distention of the stomach and small bowel most characteristic of an infectious or inflammatory gastroenteritis. 5. Multifocal colonic diverticulosis without definitive findings of diverticulitis. 6. Indeterminate bilateral renal lesions. Correlation with prior renal ultrasound suggested. 7. Cirrhotic liver. This document has been electronically signed by: Chase Hernandez MD on 04/27/2025 20:27:24
--- NOTE | ~2025-04-21 | XR_ITS ---
CLINICAL HISTORY: pain --- Additional Notes or Special Instructions: Messaged transport 1910 DG Exam: AP and frog-leg lateral views of the left hip. Comparison: CT/SR - CT ABDOMEN PELVIS WO IV CON - 04/27/25 19:[address]/SR - CT ABDOMEN PELVIS WO IV CON - 04/21/25 22:39 EDT Findings: Bony alignment of the left hip joint is anatomic. No acute fracture or erosion. Mild degenerative change of the left hip joint. IMPRESSION: No acute findings. This document has been electronically signed by: Chase Hernandez MD on 04/27/2025 20:27:43
--- NOTE | ~2025-04-21 | US_ITS ---
CLINICAL HISTORY: bilateral leg pain.swelling Venous duplex ultrasound bilateral lower extremity COMPARISON: None provided. FINDINGS: The visualized deep veins are fully compressible with normal Doppler color flow and spectral tracings. No popliteal cyst. IMPRESSION: 1. Negative for bilateral lower extremity deep vein thrombosis. This document has been electronically signed by: Aftab Vann MD on 04/26/2025 20:18:42
--- NOTE | ~2025-04-21 | XR_ITS ---
CLINICAL HISTORY: tender, painful suspect effusion arthritis RIGHT ANKLE X-RAYS COMPARISON: None provided. FINDINGS: A total of 3 views of the right ankle were obtained. Density projecting over the soft tissues of the right lower leg is thought to represent something external to the patient. No evidence of an acute fracture or dislocation within the right ankle. No significant joint space narrowing. No aggressive lytic lesion or aggressive periosteal reaction. Small tibiotalar joint effusion is questioned on the lateral view. Increased density is noted within the fat superior to the calcaneus on the lateral view, and might represent edema/fluid. IMPRESSION: 1. No evidence of an acute fracture or dislocation. No aggressive lytic lesion or aggressive periosteal reaction to suggest osteomyelitis. 2. Small tibiotalar joint effusion is questioned. Increased density is noted within the fat superior to the calcaneus on the lateral view, and might represent edema/fluid. 3. CT scan of the right ankle in the ER can be considered for a more accurate assessment. This document has been electronically signed by: Dereje Rojo M.D. on 04/21/2025 22:12:19
[2025-04-21 17:51] VITALS: BP 201/86; PULSE 80; RESP 20; TEMP 36.6; O2SAT 100; BMI 27.5
--- NOTE | 2025-04-21 18:05 | ED.GENADULT ---
HPI - General Adult General Chief complaint: General Medical Stated complaint: both ankle swelling, diabetic Time Seen by Provider: 04/21/25 20:08 History of Present Illness ED Provider: Jeremías Trinidad MD HPI narrative: 79-year-old female with a history of insulin-dependent diabetes, hypertension, chronic kidney disease followed by nephrology at [facility] who mainly is here complaining of right ankle pain without injury. She subjectively feels her some swelling denies fever or chills twisting or any other injury. At this point she is unable to bear full weight on the right ankle. No left-sided swelling. Denies shortness of breath history of DVT or PE. Related Data Home Medications ?Medication ?Instructions ?Recorded ?Confirmed amlodipine 10 mg tablet 10 mg PO DAILY 04/12/22 04/22/25 gabapentin 100 mg capsule 100 mg PO TID 04/12/22 04/22/25 pen needle, diabetic 31 gauge x #50 ea 04/12/22 10/23/2211/29 (Unifine Pentips Plus) ursodiol 500 mg tablet 500 mg PO BID 04/12/22 04/22/25 primidone 50 mg tablet (Mysoline) 100 mg PO DAILY 07/20/22 04/22/25 insulin glulisine U-100 100 10 - 12 unit subcut TIDAC 04/22/25 04/22/25 unit/mL subcutaneous pen (Apidra SoloStar U-100 Insulin) lidocaine 5 % topical patch 1 patch topical DAILY PRN Pain 04/22/25 04/22/25 primidone 50 mg tablet 50 mg PO BEDTIME 04/22/25 04/22/25 Previous Rx's ?Medication ?Instructions ?Recorded blood-glucose meter (FreeStyle #1 ea 04/12/22 Lite Meter kit) blood sugar diagnostic (FreeStyle #10 ea 08/03/22 Lite Strips) lancets 28 gauge (FreeStyle #100 ea 08/03/22 Lancets) pen needle, diabetic 32 gauge x #100 ea 05/06/23 (BD Doreen 2nd Gen Pen Needle) atorvastatin 20 mg tablet 20 mg PO DAILY #30 tabs 06/14/23 flash glucose sensor (FreeStyle #2 ea 07/08/23 Brittnee 2 Sensor kit) flash glucose scanning reader #1 ea 07/18/23 (FreeStyle Brittnee 2 Menard) acetaminophen 325 mg tablet 650 mg (2 x 325 mg) PO Q6H PRN 07/27/23 pain #30 tabs insulin glargine 100 unit/mL (3 16 unit (0.16 mL) subcut QPM #15 mL 09/27/23 mL) subcutaneous pen (Lantus Solostar U-100 Insulin) Allergies Allergy/AdvReac Type Severity Reaction Status Date / Time No Known Allergies Allergy Verified 04/21/25 17:58 [facility] Past Medical History Medical History Pancytopenia Cirrhosis of liver Osteoarthritis Chronic kidney disease Type 2 diabetes mellitus with renal manifestations Surgical History History of surgery Hx of cholecystectomy History of hysterectomy Hx of microdiscectomy History of colonoscopy Family History Family History Mother Diabetes High blood pressure Father Liver failure Social History Social History Household Members: Spouse Alcohol intake: never Patient Tobacco Use Status: Never used Tobacco Smoked in Last 30 Days: No Use of substances other than those prescribed or required for medical reasons: No Advance Directives: No Advance Directives Information Provided: No Do you have a plan to hurt others: No Plan Patient : No service: No Physical Exam ED Exam Exam: EXAM: Gen: Alert, awake, well appearing, well hydrated. Head: Atraumatic Eyes: Anicteric, Normal conjunctiva. ENT: Moist mucosa, no pallor. ? Neck: Supple. Skin: ?No observable rash or bruising on exposed or examined skin Respiratory: Breathing comfortably, No distress.Clear to auscultation bilaterally, symmetric chest expansion, No wheeze, rales, ronchi. Cardiovascular: Regular rate and rhythm. No murmurs or rub. Well perfused periphery, warm extremities. No edema. ? Abdominal: No focal tenderness. Soft, no objective distension. No palpable masses or obvious organomegaly. ?No guarding, no rebound tenderness or other peritoneal findings. : No flank tenderness. Neuro: Alert. Gross movement of all extremities intact. ? Psych: Calm. Cooperative. MSK: No grossly visible deformity. Right ankle exquisitely tender no erythema or objective joint effusion. Well-perfused foot. Even minimal movement plantar and dorsiflexion causes severe pain. Perhaps mild trace edema just around the ankle joint. No bruising no calf tenderness remainder of the right lower extremities normal Vital signs: See flowsheet Vital Signs: Vital Signs - 24 hr 04/21/25 17:51 04/21/25 20:14 04/21/25 22:28 Temperature 98 F Pulse Rate 80 71 Respiratory Rate 20 18 Blood Pressure 201/86 H 207/79 H 186/134 H Pulse Oximetry 100 98 Oxygen Delivery Method Room Air Room Air 04/21/25 23:07 Temperature Pulse Rate 61 Respiratory Rate 11 L Blood Pressure 203/89 H Pulse Oximetry 98 Oxygen Delivery Method Room Air BMI result Body Mass Index 27.5 Course Course Course Narrative: This is a Rapid Medical Examination (RME) performed by Moe Arora PA-C in triage. Full HPI, ROS, assessment and treatment plan per primary provider in the Main ED. Hx: 79 yo F hx T2DM here for eval of b/l foot swelling/pain x3 weeks. Plan: labs Medications Administered Generic Name Dose Route Start Last Admin Trade Name Freq PRN Reason Stop Dose Admin Acetaminophen 650 mg 04/21/25 23:18 04/22/25 11:47 Acetaminophen 325 Mg Tablet PO 650 mg Q6H PRN Administration Pain, Mild 1-3,fever,headache Amlodipine Besylate 10 mg 04/22/25 09:00 04/22/25 09:07 Amlodipine Besylate 10 Mg Tablet PO 10 mg DAILY ELIJAH Administration Protocol Gabapentin 100 mg 04/22/25 15:00 04/22/25 14:33 Gabapentin 100 Mg Capsule PO 100 mg TID ELIJAH Administration Heparin Sodium (Porcine) 5,000 unit 04/21/25 23:30 04/22/25 11:47 Heparin Sodium,Porcine 5,000 Unit/Ml Vial SUBCUT 5,000 unit Q12H ELIJAH Administration Hydralazine HCl 25 mg 04/22/25 15:00 04/22/25 14:33 Hydralazine Hcl 25 Mg Tablet PO 25 mg TID ELIJAH Administration Protocol Lactated Ringer's 1,000 mls @ 80 mls/hr 04/22/25 00:30 04/22/25 14:25 Lr IVCONT 80 mls/hr .[id number] [facility] Administration Insulin Human Lispro 0 unit 04/22/25 07:30 04/22/25 14:21 Insulin Lispro 100 Unit/Ml 3 Ml Vial SUBCUT 2 unit QIDACHS [facility] Administration Protocol Lidocaine 1 patch 04/22/25 13:49 04/22/25 14:36 Lidocaine 4 % Patch Adh..Patch TRANSDERMA 1 patch DAILY PRN Administration Pain Ondansetron HCl 4 mg 04/21/25 23:18 04/22/25 00:27 Ondansetron Hcl 4 Mg/2 Ml Vial IVPUSH 4 mg Q8H PRN Administration Nausea and Vomiting Sodium Chloride 3 ml 04/22/25 00:00 04/22/25 09:09 0.9 % Sodium Chloride Flush 3 Ml Syringe IVFLUSH Not Given QSHIFT [facility] Discontinued Medications Generic Name Dose Route Start Last Admin Trade Name Freq PRN Reason Stop Dose Admin Acetaminophen 975 mg 04/21/25 21:08 04/21/25 21:45 Acetaminophen 325 Mg Tablet PO 04/21/25 21:09 975 mg ONCE ONE Administration Amlodipine Besylate 5 mg 04/21/25 21:40 04/21/25 22:28 Amlodipine Besylate 5 Mg Tablet PO 04/21/25 21:41 5 mg ONCE ONE Administration Protocol Hydralazine HCl 20 mg 04/21/25 23:14 04/21/25 23:50 Hydralazine Hcl 20 Mg/Ml Vial IVPUSH 04/21/25 23:15 20 mg ONCE ONE Administration Protocol Morphine Sulfate 2 mg 04/22/25 00:42 04/22/25 01:06 Morphine Sulfate 2 Mg/Ml Cartridge IVPUSH 04/22/25 00:43 2 mg ONCE ONE Administration Protocol Oxycodone HCl 5 mg 04/21/25 21:08 04/21/25 21:45 Oxycodone Hcl Immed Release 5 Mg Tablet PO 04/21/25 21:09 5 mg ONCE ONE Administration Sodium Zirconium Cyclosilicate 5 gm 04/21/25 21:16 04/21/25 21:46 Sodium Zirconium Cyclosilicate 5 Gm Powd.Pack PO 04/21/25 21:17 5 gm ONCE ONE Administration Procedures Procedure Narrative Procedure Narrative: EMERGENCY ULTRASOUND INTERPRETATION-Limited Retroperitoneal (Renal) [This study was ordered, performed, and interpreted by myself. The study reveals: Impression: Full bladder, limited view of the kidneys possibly secondary to medical renal disease and atrophy. No overt signs of urologic obstruction [Indication: LEA Bladder: ANECHOIC URINE Right Kidney: Limited view Left Kidney: Limited view Performed by: Jeremías Trinidad MD Images were stored CPT: 85260] __ EMERGENCY ULTRASOUND INTERPRETATION-Limited Point of Care Venous (DVT) [This study was ordered, performed, and interpreted by myself. The study reveals: Impression: NO EVIDENCE OF DVT. I RECOMMENDED TO THE PATIENT REPEAT ULTRASOUND IN ONE WEEK IF SYMPTOMS PERSIST.] [Indication: Laterality: RIGHT Common Femoral: -Full Compressibility: YES -Clot Seen: NO Superficial Femoral: -Full Compressibility: YES -Clot Seen: NO Popliteal: -Full Compressibility: YES -Clot Seen: NO Other: Performed by: Jeremías Trinidad MD Images were stored CPT: 58905] __ EMERGENCY ULTRASOUND INTERPRETATION- Limited Musculoskeletal [This study was ordered, performed, and interpreted by myself. The study reveals: Impression: Small right ankle effusion [Indication: Painful with ranging right ankle Joint Localization for fluid (anechoic): Anechoic fluid suggestive of right ankle effusion Other: Incidental subcutaneous cobblestoning suggestive of edema Performed by: Jeremías Trinidad MD Images were stored ] Medical Decision Making Medical Decision Making MDM Narrative: Medical Decision Makin-year-old female with right ankle pain acute on chronic without injury. Mild swelling, small effusion seen on musculoskeletal ultrasound. DVT excluded bedside ultrasound there was also no history of thromboembolism nor any calf tenderness. The tenderness and focality of her pain in the ankle is not suggestive of DVT. The patient also incidentally on our lab work has LEA however our last creatinine level was from 2022 the patient says she follows nephrology at [facility] I will try to see if we can find more recent lab work as this may be chronic and stable. She has mild hyperkalemia. Preliminary Favored Differential Diagnosis: Urologic obstruction, UTI, LEA on CKD, hypertensive or diabetic nephropathy with LEA, ankle sprain, ankle arthritis, ankle fracture, ankle effusion among additional considered etiologies Testing Interpreted Independently: ECG: Sinus rhythm rate 68 QTC 423 no acute ischemic changes no RV strain no hyperkalemic changes Radiology or Lab testing Results Reviewed: Not Applicable Consults: Not Applicable Independent Historians/External Chart Reviews: Lab work outpatient from [facility] external chart review reveals most recent creatinine 11/03/2024 creatinine of 2.96 BUN 49. At that time hemoglobin A1c 7.8. Glucose 151, hemoglobin was 10.7 at that time as well. Social Determinants of Health Impacting MDM/Planning: Not Applicable Lab Data 04/22/25 04:50 04/22/25 04:50 Labs: Lab Results 04/21/25 Range/Units 18:20 WBC 4.3 L (4.8-10.8) X10*3/uL RBC 2.78 L (4.20-5.50) X10*6/uL Hgb 9.0 L (12.0-16.0) g/dl Hct 26.3 L (37.0-47.0) % MCV 94.6 (80.0-98.0) fL MCH 32.4 (27.0-33.0) pg MCHC 34.2 (31.0-35.0) g/dl RDW 13.3 (11.0-16.0) % Plt Count 122 L D (160-400) X10*3/uL MPV 10.0 (9.4-12.3) fL Immature Gran % (Auto) 0.2 (0.0-0.4) % Neut % (Auto) 57.3 (45-73) % Lymph % (Auto) 27.7 (20-40) % Cotton % (Auto) 10.9 (2-11) % Eos % (Auto) 3.2 (0-4) % Baso % (Auto) 0.7 (0-2) % Lymph # (Auto) 1.2 (1.2-4.9) X10*3/uL Cotton # (Auto) 0.5 (0.1-1.2) X10*3/uL Eos # (Auto) 0.1 (0.0-0.4) X10*3/uL Baso # (Auto) 0.0 (0.0-0.2) X10*3/uL Abs Immat Gran (auto) 0.01 (0.00-0.03) X10*3/uL Absolute Neuts (auto) 2.5 (2.0-8.3) x10*3/uL Absolute Nucleated RBC 0.000 (0.0-0.012) X10*3/uL Nucleated RBC % (auto) 0.0 (0.0-0.2) /100WBC ESR 62 H (0-20) MM/HR Sodium 143 (135-145) mmol/L Potassium 5.4 H (3.3-5.1) mmol/L Chloride 114 H (96-108) mmol/L Carbon Dioxide 22 (22-29) mmol/L Anion Gap 12 (12-20) BUN 60 H (9-16) mg/dL Creatinine 4.19 H* (0.5-1.4) mg/dL Estim Creat Clear Calc 11.0 Estimated GFR 10 Random Glucose 213 H (60-115) mg/dL Calcium 8.0 L D (8.4-10.2) mg/dL Magnesium 1.7 (1.6-2.6) mg/dL Iron 82 (30-160) mcg/dL TIBC 261 (228-428) mcg/dL % Saturation 31 (15-50) % Unsat Iron Binding 179 ug/dL Total Bilirubin 0.2 (0.0-1.0) mg/dL AST 117 H (5-31) U/L ALT 114 H (0-31) U/L Alkaline Phosphatase 187 H (39-117) U/L C-Reactive Protein 0.39 (< or = 0.50) mg/dL B-Natriuretic Peptide 150 H (<100) pg/mL Total Protein 7.0 (6.5-8.0) g/dL Albumin 3.4 L (3.5-5.0) g/dL Lipase 45 (8-78) U/L Discharge Plan Discharge Clinical Impression: Acute kidney injury Patient Disposition: Admitted As Inpatient
[2025-04-21 18:30] LABS: MANUAL DIFF FLAG NO
[2025-04-21 18:33] LABS: Hematocrit 26.3 % (37.0-47.0); Hemoglobin 9.0 g/dl (12.0-16.0); Imm Gran Abs Auto 0.01 X10*3/uL (0.00-0.03); Imm Gran Pct Auto 0.2 % (0.0-0.4); Lymphocytes Absolute Auto 1.2 X10*3/uL (1.2-4.9); Mean Corpuscular HGB Conc 34.2 g/dl (31.0-35.0); Mean Corpuscular Hemoglobin 32.4 pg (27.0-33.0); Mean Corpuscular Volume 94.6 fL (80.0-98.0); NRBC Abs Auto 0.000 X10*3/uL (0.0-0.012); NRBC Pct Auto 0.0 /100WBC (0.0-0.2); Platelet Count 122 X10*3/uL (160-400); Red Blood Count 2.78 X10*6/uL (4.20-5.50); White Blood Count 4.3 X10*3/uL (4.8-10.8)
[2025-04-21 18:55] LABS: B Type Natriuretic Peptide 150 pg/mL (<100)
[2025-04-21 18:56] LABS: Alanine Aminotransferase 114 U/L (0-31); Albumin Level 3.4 g/dL (3.5-5.0); Alkaline Phosphatase 187 U/L (39-117); Anion Gap 12 (12-20); Aspartate Amino Transferase 117 U/L (5-31); Blood Urea Nitrogen 60 mg/dL (9-16); Calcium 8.0 mg/dL (8.4-10.2); Carbon Dioxide 22 mmol/L (22-29); Chloride 114 mmol/L (96-108); Creatinine Clr Calc Pharmacy 11.0; Estimated Glomerular Filt Rate 10; Lipase 45 U/L (8-78); Magnesium 1.7 mg/dL (1.6-2.6); Potassium 5.4 mmol/L (3.3-5.1); Sodium 143 mmol/L (135-145); Total Protein 7.0 g/dL (6.5-8.0)
[2025-04-21 20:14] VITALS: BP 207/79; PULSE 71; RESP 18; O2SAT 98
--- OUTSIDE RECORDS SUMMARY | 2025-04-21 20:28 | XMS_ITS | Clinical Summary ---
Author Organization [facility] Address [address] [place] [address] Phone Care Team Providers Care Shelf Drier Operator Name Role Phone Luci Garzon Primary Care P tamaravider Social History Tobacco Use Types Packs/Day Years Used Date Smoking Tobacco: Never Assessed Comments Unknown Sex and Gender Information Value Date Recorded Sex Assigned at Female 07/29/2024 3:59 PM EST Legal Sex Female 4:51 AM EST Gender Identity Female 07/29/2024 3:59 PM EST Sexual Orientation Straight 07/29/2024 3: 59 PM EST Plan of Treatment Health Maintenance Due Date Last Done Comments Diabetes: Annual GFR (Glomerular Filtration Rate) 1945 Diabetes: Annual Foot Exam 1955 Diabetes: Annual Retina Eye Exam 1955 Hepatitis A Vaccines (1 of 2 - Risk 2-dose series) 1964 Hepatitis B Vaccines (1 of 3 - Risk 3-dose series) 2005 Zoster Vaccines (2 of 3) 09/29/2014 08/04/2014 DTaP,Tdap,and Td Vaccines (3 - Td or Tdap) 12/09/2017 12/10/2007, 06/16/1997 RSV Immunization Adult Patients (1 - 1-dose 75+ series) 2020 Cholesterol Screening (Lipid Panel) 08/19/2022 Falls Risk Assessment 08/19/2022 Hepatitis C Screening 08/19/2022 Medicare Annual Wellness Visit 08/19/2022 Osteoporosis Screening (Bone Density Screening) 08/19/2022 Social Influencers of Health Screening 08/19/2022 COVID-19 Vaccine ( season) 2024 01/16/2022, 08/15/2021, 11/14/2020, Additional history exists Diabetes: Annual Urine Albumin-Creatinine Ratio (uACR) 08/10/2024 Diabetes: Blood Sugar Control Test (HGBA1C) 08/10/2024 08/26/2023 Hypertension/CHF/CAD Annual BMP Blood Test 08/10/2024 Depression Screening 09/16/2024 Influenza Vaccine (#1) 2025 , 07/10/2023, 06/25/2022, Additional history exists Pneumococcal Vaccine: 50+ Years Completed 01/06/2019, 03/06/2013, 11/10/2001 HIB Vaccines Aged Out No longer eligi ble based on patient's age to complete this topic HPV Vaccines Aged Out No longer eligi ble based on patient's age to complete this topic IPV Vaccines Aged Out No longer eligi ble based on patient's age to complete this topic MMR Vaccines Aged Out No longer eligi ble based on patient's age to complete this topic Meningococcal ACWY Vaccine Aged Out N o longer eligible based on patient's age to complete this topic Meningococcal B Vaccine Aged Out No l onger eligible based on patient's age to complete this topic RSV Immunization Patients Under 20 months Aged Out No longer eligible based on patient's age to complete this topic Varicella Vaccines Aged Out No longer eligible based on patient's age to complete this topic Insurance [employer] Care Teams Shelf Drier Operator Relationship Specialty Start Date End Date Luci Garzon PA [facility] - General 06/19/23
--- OUTSIDE RECORDS SUMMARY | 2025-04-21 20:28 | XMS_ITS ---
Author Organization [facility] Care Team Providers Care Cooker Chip Name Role Phone Marion Womack Unavailable Unavailable Dacia Valdovinos Unavailable Unavailable Cruzito Hughes Unavailable Unavailable Tania Alexander Unavailable Unavailable Mare Caicedo Unavailable Unavailable Care Team Name Role Address Phone Organization Dates Cruzito Hughes PCP [address], [address], [facility] (Office): [facility] 01/04/2017 - 01/18/2017 Marion Womack [address] [place] [address], [facility], [facility] (Office): [facility] 01/04/2017 - 01/18/2017 Dacia Valdovinos [address], [address], [facility] (Office): [facility] 01/04/2017 - 01/18/2017 Tania Alexander [address], [address], [facility] (Office): [facility] 01/04/2017 - 01/18/2017 Mare Caicedo [address] [address], [facility] (Office): [facility] 01/04/2017 - 01/18/2017 Immunizations Immunization Status Vaccine Details Vaccine Code CodeSystem Bola e Notes TB 2 Step Mantoux Skin Test completed tuberculin skin test; unspecified formulation lotNumber: [id number] expiry: 07/13/2018 Given Right Forearm intradermally Step 1 of Multi-step with next step required 98 CVX created date: 01/18/2017 consent date: 01/18/2017 administere d date: 01/05/2017 Mental Status Section Date Assessment Total Score Description 01/18/2017 BIMS 15 cognitively int act CAM 0 No delirium ind icated PHQ-9 00 01/11/2017 BIMS 15 cognitively int act CAM 0 No delirium ind icated PHQ-9 00 Problems Problem # Description Date of onset Resolved Date Code CodeSystem Concern Status 1 DIFFICULTY IN WALKING, NOT ELSEWHERE CLASSIFIED 01/04/[address] active 2 DYSPHAGIA, OROPHARYNGEAL PHASE 01/04/[address] active 3 ENCOUNTER FOR OTHER SPECIFIED SURGICAL AFTERCARE 01/04/[address] active 4 ESSENTIAL (PRIMARY) HYPERTENSION 01/04/[address] active 5 INSOMNIA, UNSPECIFIED 01/04/[address] active 6 MUSCLE WEAKNESS (GENERALIZED) 01/04/[address] active 7 OTHER INTERVERTEBRAL DISC DISPLACEMENT, LUMBAR REGION 01/04/[address] active 8 OTHER LACK OF COORDINATION 01/04/[address] active 9 TREMOR, UNSPECIFIED 01/04/2017 09665336 SNOMED C T active 10 TYPE 2 DIABETES MELLITUS WITH DIABETIC NEUROPATHY, UNSPECIFIED 01/04/[address] active Reason for Referral No Reasons for Referral Entered Social History Social History Observation Description Start Date End Date Code Code System Current Smoking Status Tobacco smoking consumption unknown 325173736 SNOMED CT Sex Assigned At Female 1945 87383-5 [facility] Gender Identity Vital Signs Code Code System Vitals Name Values and Units Timing Information 9279-1 LOINC Respiratory Rate Value=18.0 Units=/m in 01/17/2017 8462-4 LOINC Blood Pressure-Diastolic Value=76 Un its=mmHg 01/17/2017 8480-6 LOINC Blood Pressure-Systolic Ieeda=353 Un its=mmHg 01/17/2017 8310-5 LOINC Body Temperature Value=97.9 Units= F 01/17/2017 8867-4 [facility] Heart rate Value=68.0 Units=/min 12/2016 64232-2 [facility] O2 % BldC Oximetry Value=96.0 Units= % 01/17/2017 2339-0 [facility] Blood Sugar Diokw=470.0 Units=mg/dL 01/17/2017 41401-8 [facility] Weight Gikms=453.8 Units=Lbs 10/2016 46915-2 [facility] Pain Level Value=0.0 01/14/2017 8302-2 [facility] Height Value=65.0 Units=Inches 01/09/2017
--- NOTE | 2025-04-21 21:16 | ECG_ITS ---
Test Reason : QT ASSESS Blood Pressure : */* mmHG Vent. Rate : 68 BPM Atrial Rate : 68 BPM P-R Int : 210 ms QRS Dur : 82 ms QT Int : 398 ms P-R-T Axes : 64 5 37 degrees QTcB Int : 423 ms Sinus rhythm with 1st degree A-V block Otherwise normal ECG No previous ECGs available Referred By: Jeremías Trinidad Electronically Signed By: GIGI ALTAMIRANO
[2025-04-21] MEDS: oxyCODONE HCl Immed Release 5 MG TABLET PO (21:45)
[2025-04-21 22:28] VITALS: BP 186/134
[2025-04-21 23:07] VITALS: BP 203/89; PULSE 61; RESP 11; O2SAT 98
--- NOTE | 2025-04-21 23:24 | PM.IMHP ---
History of Present Illness Date of Service: 04/21/25 Attending physician on admission: Mathew Kramer Chief Complaint: BLE edema Pt is a 79 yo female with PMH IDDM with recent hypoglycemia, diabetic neuropathy, cirrhosis of the liver on urosdiol, chronic kidney disease, hypertension, HLD, osteoarthritis was brought into the emergency department by her daughter as patient was reluctant to be seen for ongoing right lower extremity pain, swelling and now inability to bear weight status post a mechanical fall that was unwitnessed 2 days prior. Patient states she missed a step and fell and braced her fall with her wrist and arms and was able to get back up on her own. Patient denies any hit to the head or loss of consciousness. X-ray indicates possible small fluid collection in the tibiotalar joint with no evidence of dislocation or fracture. Radiologist recommend CT scan of the right ankle for more accurate assessment. Patient noted to be significantly hypertensive with systolic greater than 200 initially. Patient did receive hydralazine 20 mg IV x1 with good effect but patient was symptomatic with nausea and dry heaves after receiving this dose. Those symptoms have since resolved and blood pressure systolic is currently 133. EKG does note a sinus rhythm with first-degree AV block but the TX is 210. Patient does not normally take AV inge blocking agents. Heart rate 68. Patient normally only on amlodipine for blood pressure. Incidentally workup in the ED notes LEA on chronic kidney disease most likely. Creatinine 4.19, creatinine clearance 11 and GFR 10. UA noted for +3 proteinuria but negative for UTI. 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 No recent labs to compare to. In addition patient has hyperkalemia and was treated with Lokelma in the ED. CT of the abdomen and pelvis were completed which was negative for any renal calculi or hydronephrosis. Multiple bilateral renal lesions considered nonspecific were found and could represent proteinaceous cysts. Follow-up CT with IV contrast is recommended. Also no evidence of bowel obstruction or free air. Chronic liver morphology/ perihepatic ascites is noted and patient does have history of cirrhosis of liver and is followed by GI specialist locally. AST , 117 ALT 114 and alk-phos 187. She also has a noted pancytopenia with a white blood count of 4.3, H and H of 9 and 26.3 and platelet count of 122. Most likely anemia could be related to her chronic kidney disease. Patient denies any issues with spontaneous bleeding or bruising. Patient has not seen a supervisor blueprinting and photocopy in the past. Patient does take insulin for her diabetes and checks her blood sugar 3 times a day. Patient states recently her blood sugars have been low especially in the morning and the lowest was 57 mg/dL. Patient did not notify her provider but was able to drink juice and eat breakfast and recovered. Patient does not believe the hypoglycemia contributed to her fall. Patient's appetite has been waxing and waning lately. Patient's daughter at the bedside and admits that patient really does not want to be admitted to the hospital but after speaking with the patient and daughter, patient understands the need for admission to address her current issues. Daughter states she is patient's healthcare proxy and patient is a full code status. Patient does not require assurance manager for interaction as she understands and speaks Lao. Review of Systems Review of Systems: Patient currently denies any chest pain or shortness of breath but is complaining of increasing pain in the right lower extremity. Patient denies any headache, dysphagia, visual changes. Patient denies any abdominal pain, diarrhea or constipation. Yes all other systems are reviewed and are negative [facility] Medical History (Updated 04/22/25 @ 01:14 by MARC Boyle) Pancytopenia Cirrhosis of liver Osteoarthritis Chronic kidney disease Type 2 diabetes mellitus with renal manifestations Cognitive capacity: A/O X3 Functional capacity: independent ambulation Patient : No Family History Mother Diabetes High blood pressure Father Liver failure Surgical History History of surgery Hx of cholecystectomy History of hysterectomy Hx of microdiscectomy History of colonoscopy Social History Household Members: Spouse Alcohol intake: never Patient Tobacco Use Status: Never used Tobacco Smoked in Last 30 Days: No Use of substances other than those prescribed or required for medical reasons: No Advance Directives: No Advance Directives Information Provided: No Do you have a plan to hurt others: No Plan Patient : No Ebola Risk: Travel/Contact With Anyone From Affected Area/s: No Has Patient Experienced Ebola Symptoms: No Meds Allergies Allergy/AdvReac Type Severity Reaction Status Date / Time No Known Allergies Allergy Verified 04/21/25 17:58 Active Medications: Current Medications Acetaminophen (Acetaminophen 325 Mg Tablet) 650 mg PO Q6H PRN PRN Reason: Pain, Mild 1-3,fever,headache Albuterol/Ipratropium (Albuterol/Iprat 2.5/0.5mg 3 Ml Ampul.Neb) 3 ml INHALE Q4H PRN PRN Reason: Shortness of Breath/Wheezing Calcium Carbonate (Calcium Carbonate 750 Mg Tab.Chew) 750 mg PO Q4H PRN PRN Reason: Heartburn Heparin Sodium (Porcine) (Heparin Sodium,Porcine 5,000 Unit/Ml Vial) 5,000 unit SUBCUT Q12H ELIJAH Magnesium Hydroxide (Milk Of Magnesia 30 Ml Oral.Susp) 30 ml PO DAILY PRN PRN Reason: Constipation Melatonin (Melatonin 3 Mg Tablet) 6 mg PO BEDTIME PRN PRN Reason: Insomnia Ondansetron HCl (Ondansetron Hcl 4 Mg/2 Ml Vial) 4 mg IVPUSH Q8H PRN PRN Reason: Nausea and Vomiting Polyethylene Glycol (Polyethylene Glycol 3350 17 Gm Powd.Pack) 17 gm PO DAILY PRN PRN Reason: Constipation Senna (Sennosides 8.6 Mg Tablet) 17.2 mg PO BEDTIME ELIJAH Sodium Chloride (0.9 % Sodium Chloride Flush 3 Ml Syringe) 3 ml IVFLUSH QSHIFT ELIJAH Home Medications ?Medication ?Instructions ?Recorded ?Confirmed ?Last Taken ?Type amlodipine 10 mg tablet 10 mg PO DAILY 04/12/22 07/27/23 Unknown History gabapentin 100 mg capsule 100 mg PO TID 04/12/22 07/27/23 Unknown History pen needle, diabetic 31 gauge x #50 ea 04/12/22 10/23/22 Unknown History 3/ (Unifine Pentips Plus) pioglitazone 15 mg tablet 15 mg PO DAILY 04/12/22 07/27/23 Unknown History ursodiol 500 mg tablet 500 mg PO BID 04/12/22 07/27/23 Unknown History primidone 50 mg tablet (Mysoline) 50 mg PO 07/20/22 10/23/22 Unknown History Physical Exam Vital Signs and Narrative: Vital Signs: Last Vital Signs Temp 98 F 04/21/25 17:51 Pulse 61 04/21/25 23:07 Resp 11 L 04/21/25 23:07 BP 203/89 H 04/21/25 23:07 Pulse Ox 98 04/21/25 23:07 O2 Del Method Room Air 04/21/25 23:07 BMI result Body Mass Index 27.5 Alert and orientated X3, able to follow commands and answer questions as asked. Patient is somewhat disgruntled about being admitted to the hospital. Daughter at the bedside providing reassurance. Neuro: CN II-X11 intact, no deficits, visual acuity intact EYES: PERRLA, EOM intact, sclerae nonicteric, conjunctiva pale ENT: hearing intact, no issues with swallowing, uvula midline, lips moist, nares patent no epistaxis Cardiac: S1 S2 RRR, no murmur, no JVD Pulmonary: lungs clear to auscultation B Abdominal: BS active in all 4 quadrants, no guarding, tenderness, rebounding MSK: strength 5/5 upper and L lower extremities, unable to assess strength in the right lower extremity : no CVA tenderness no bladder distension Extremities: no edema in L lower extremity, mild edema in the right lower extremity, PT and DP pulses palpable +2 Psych: Affect flat, judgement and insight fair Skin: Intact Results Labs 04/21/25 18:20 04/21/25 18:20 Labs: Laboratory Results - last 24 hr 04/21/25 18:20 MCV 94.6 MCH 32.4 MCHC 34.2 RDW 13.3 Plt Count 122 L D MPV 10.0 Immature Gran % (Auto) 0.2 Neut % (Auto) 57.3 Lymph % (Auto) 27.7 [place] % (Auto) 10.9 Eos % (Auto) 3.2 Baso % (Auto) 0.7 Lymph # (Auto) 1.2 [place] # (Auto) 0.5 Eos # (Auto) 0.1 Baso # (Auto) 0.0 Abs Immat Gran (auto) 0.01 Absolute Neuts (auto) 2.5 Absolute Nucleated RBC 0.000 Nucleated RBC % (auto) 0.0 ESR 62 H Anion Gap 12 Estim Creat Clear Calc 11.0 Estimated GFR 10 Random Glucose 213 H Calcium 8.0 L D Magnesium 1.7 Total Bilirubin 0.2 AST 117 H ALT 114 H Alkaline Phosphatase 187 H C-Reactive Protein 0.39 B-Natriuretic Peptide 150 H Total Protein 7.0 Albumin 3.4 L Lipase 45 ECG Attestation: I personally reviewed and interpreted this ECG as follows: (SR First degree AVB TX 210) Imaging Radiologist's Impressions: R ankle xray IMPRESSION: 1. No evidence of an acute fracture or dislocation. No aggressive lytic lesion or aggressive periosteal reaction to suggest osteomyelitis. 2. Small tibiotalar joint effusion is questioned. Increased density is noted within the fat superior to the calcaneus on the lateral view, and might represent edema/fluid. 3. CT scan of the right ankle in the ER can be considered for a more accurate assessment. CT ABD PELVIS IMPRESSION: 1. No renal calculi or hydronephrosis. No calculi in the ureters and urinary bladder. 2. Multiple bilateral renal lesions measure above water density. These lesions are nonspecific. Some or all of these might represent proteinaceous cysts. Follow-up outpatient CT kidneys, without and with contrast, is advised. 3. No evidence of a bowel obstruction or free air. No pericolonic inflammation. No evidence of appendicitis. 4. Tiny amount of abdominal/pelvic free fluid is noted. Cirrhotic liver morphology is noted. 5. Additional findings are detailed above. Assessment and Plan (1) Acute kidney injury: Status: Acute Plan Pt is a 79 yo female with PMH IDDM with recent hypoglycemia, diabetic neuropathy, cirrhosis of the liver on urosdiol, chronic kidney disease, hypertension, HLD, osteoarthritis was brought into the emergency department by her daughter as patient was reluctant to be seen for ongoing right lower extremity pain, swelling and now inability to bear weight status post a mechanical fall that was unwitnessed 2 days prior. Patient being admitted for concern rinse a fluid collection in the affected right lower extremity. Incidentally patient noted to have worsening renal function with known chronic kidney disease resulting in LEA and secondary urinary retention with normal CT of the abdomen and pelvis and no hydronephrosis or nephrolithiasis. Also patient experiencing hypertensive urgency on arrival and required IV hydralazine to lower systolic blood pressure. Goal is to avoid hypotension. Patient initially unhappy with being admitted but understands the medical reasons for admission at this time. Daughter is healthcare proxy and is closely involved in patient's care. LEA on CKD Nephrology consulted Ross placed for strict I's and O's and suspicion for a retention UA negative for UTI, noted for proteinuria +3 CT negative for hydronephrosis or nephrolithiasis or obstructive ureter process Renal ultrasound ordered, noted hypertension on arrival question renal artery stenosis Hyperkalemia Lokelma 5 mg po ER X1 Follow BMP Telemetry Hypertensive urgency, systolic over 200 Hydralazine 20 mg IV x1 per attending, patient mildly symptomatic with nausea but symptoms resolved Blood pressure overall has improved Continue telemetry Avoid hypotension secondary to renal issues R tibial fibial changes on Xray status post mechanical fall ESR 62 CRP WNL X-ray suspicious for fluid collection and affected area Noted swelling, pain, and inability to bear weight unaffected extremity Radiologist recommended CT of the affected limb which will be ordered in the a.m. RICE Elevated BNP Echo ordered Low-salt diet Daily weights, strict I's and O's Anemia/ Pancytopenia WBC 4.2, PLTS 122, H/H 9.0/26.3 Iron Panel and B12 ordered No obvious evidence of infection Cirrhosis of the liver/ noted transaminitis AST 117, ALT 114, alk-phos 187 Repeat CMP in the a.m. Avoid hepatotoxic medications Patient follows with GI specialist in the outpatient setting your so dial Patient is on urosodiol, continue once med rec completed IDDM/ recent hypoglycemia in the a.m. SSI Diabetic diet Nutritional consult for noted hypoglycemia recently A1c in the a.m. Medication adjustments for insulin may be needed upon discharge DVT prophylaxis: heparin SC MED REC PENDING FULL CODE Quality Stroke Does the patient have a stroke diagnosis?: No Reason for No Anti-thrombotic by Day Two: N/A - Med Ordered VTE Prior VTE?: No VTE Risk Level:: Medical - moderate - high VTE Device Contraindication: N/A - Device Ordered VTE Drug Contraindication: N/A - Med Ordered
[2025-04-21 23:50] VITALS: BP 212/86
[2025-04-21 23:52] LABS: Iron 82 mcg/dL (30-160); Percent Iron Saturation 31 % (15-50); Total Iron Binding Capacity 261 mcg/dL (228-428); Unsaturated Iron Binding 179 ug/dL
[2025-04-22] VITALS (10 sets, daily range): BP systolic 105–201; BP diastolic 55–98; PULSE 54–85; RESP 13–18; TEMP 36.1–36.7; O2SAT 96–99
[2025-04-22] MEDS: Lactated Ringers 1,000 ML 80 ML IVCONT ×2 (00:37→14:25)
--- NOTE | 2025-04-22 01:30 | PC.NURSE ---
attempted to insert mckenna catheter per orders, pt did not tolerate complaining of pain and bearing down causing resistance upon insertion. did not insert mckenna per pts request, MD Delarosa aware.
--- NOTE | 2025-04-22 01:31 | MHC.EDTECH ---
Pt did not want ice on her right foot anymore. Let Md be aware of it. Put pt on a coconewick
[2025-04-22 05:13] LABS: MANUAL DIFF FLAG NO
[2025-04-22 05:15] LABS: Hematocrit 26.5 % (37.0-47.0); Hemoglobin 9.0 g/dl (12.0-16.0); Imm Gran Abs Auto 0.02 X10*3/uL (0.00-0.03); Imm Gran Pct Auto 0.3 % (0.0-0.4); Lymphocytes Absolute Auto 1.0 X10*3/uL (1.2-4.9); Mean Corpuscular HGB Conc 34.0 g/dl (31.0-35.0); Mean Corpuscular Hemoglobin 31.8 pg (27.0-33.0); Mean Corpuscular Volume 93.6 fL (80.0-98.0); NRBC Abs Auto 0.000 X10*3/uL (0.0-0.012); NRBC Pct Auto 0.0 /100WBC (0.0-0.2); Platelet Count 116 X10*3/uL (160-400); Red Blood Count 2.83 X10*6/uL (4.20-5.50); White Blood Count 5.9 X10*3/uL (4.8-10.8)
[2025-04-22 05:39] LABS: Anion Gap 14 (12-20); Blood Urea Nitrogen 63 mg/dL (9-16); Calcium 8.1 mg/dL (8.4-10.2); Carbon Dioxide 18 mmol/L (22-29); Chloride 114 mmol/L (96-108); Creatinine Clr Calc Pharmacy 11.9; Estimated Glomerular Filt Rate 11; Potassium 5.1 mmol/L (3.3-5.1); Sodium 141 mmol/L (135-145)
[2025-04-22 06:08] LABS: Vitamin B12 1254 pg/mL (200-900)
--- NOTE | 2025-04-22 07:00 | CA_ITS ---
Transthoracic Echocardiogram Patient (Last, First, Middle): Rebekah Blackwood R Gender: Female Date of : 1945 Age: 79 Procedure Date: 04/22/2025 Procedure Type: Transthoracic Echocardiogram Location: [facility] Height: 165.1 cm Weight: 74.84 kg BSA: 1.82 m2 Heart Rate: 71 bpm BP: 154 / 88 mmHg Lead Web Developer: SB Referring MD: Sonali RICHARDSPLORRIE Symptoms: elevated BNP possible HF Study Quality: Adequate ECG Rhythm: Sinus Conclusions: - The left ventricular systolic function is normal. The calculated ejection fraction is 69% by biplane method. - No obvious valvular pathology seen on this study. Findings Left Ventricle Normal left ventricular cavity size. There is normal left ventricular wall thickness. The left ventricular systolic function is normal. The calculated ejection fraction is 69% by biplane method. There is no evidence of regional wall motion abnormalities. Diastolic function is normal for age. Right Ventricle Normal right ventricular cavity size and systolic function. Atria Both atria are normal in size. Aortic Valve There is a normal trileaflet aortic valve. There is no aortic valve stenosis. There is no aortic valve regurgitation. Mitral Valve The mitral valve appears normal. There is no mitral valve regurgitation. There is no mitral valve stenosis. Pulmonic Valve There is trace pulmonic valve regurgitation. Tricuspid Valve Normal tricuspid valve structure. There is trace tricuspid valve regurgitation. There is no evidence of pulmonary hypertension. Great Vessels The asc aorta is normal in size. Small plaque is seen in the sino tubular ridge and ascending aorta. Venous The inferior vena cava is normal in size and collapses greater than 50% with inspiration. Pericardium/Pleural There is no evidence of pericardial effusion. Prior Study Comparison No prior study available for comparison. Recommendations, Care & Conclusions No obvious valvular pathology seen on this study. Measurements 2D Linear Measurements IVSd: 0.96 0.6-0.9/0.6-1.0 cm LVIDd: 4.61 3.9-5.3/4.2-5.9 cm LVIDd Index: 2.53 2.4-3.2/2.2-3.1 cm/m2 LVIDs: 2.65 2.0-3.6 cm LVPWd: 0.79 0.7-1.1 cm LA Diam: 3.20 2.7-3.8/3.0-4.0 cm LAIDs Index: 1.76 1.5-2.3 cm/m2 LV Mass: 165.41 67-162/88-224 g LV Mass Index: 90.88 43-95/49-115 g/m2 LVOT Diam: 2.00 3.0+(-)1.3 cm 2D Systolic Function EF 4C: 63.40 >55% EF 2C: 73.00 >55% EF BiP: 69.30 >55% Mitral Valve MV Pk E: 0.92 MV PK A: 1.06 MV Decel Time: 277.00 E/A: 0.90 E'Lateral: 5.11 E'Medial: 5.55 E/E' Med: 16.50 E/E' Lat: 17.90 PHT: 81.00 MVA PHT: 2.72 Decel Fisher: 3.31 Aortic Valve AoV Pk Devang: 1.29 AoV Pk Grad: 7.00 DUSTIN: 2.73 LVOT LVOT Pk Devang: 1.07 LVOT Mn Devang: 0.77 LVOT VTI: 0.25 LVOT Pk Grad: 5.00 LVOT Mn Grad: 3.00 LVOT Diam: 2.00 LVOT Area: 3.14 Diastolic Function MV Pk E: 0.92 MV Pk A: 1.06 E/A: 0.90 E'Medial: 5.55 E/E' Med: 16.50 E' Laterial: 5.11 E/E' Lat: 17.90 Right Ventricle TAPSE (mm): 28.90 TVS' Devang: 19.20 Tricuspid Valve TR Pk Devang: 2.63 TR Pk Grad: 28.00 Great Vessels Aorta Sinus of Valsalva: 3.30 2.0-3.5 cm Ao Asc: 3.30 2.1-3.4 cm Pulmonary Valve PV Pk Devang: 1.11 Peak PV Grad: 5.00 VT Pk Devang: 1.90 Updated in Other Vendor System with Status of Final Abdirashid Sanon MD electronically signed on 04/23/2025 2:19:22 PM with status of Final
[2025-04-22 07:10] LABS: Hemoglobin A1C 122.0277 umol/L; Total Hemoglobin (HGBA1C) 2428.8356 umol/L
[2025-04-22 07:29] LABS: Glucose, Whole Blood 158 mg/dL (60-115)
[2025-04-22 09:14] LABS: Appearance Urine Clear; Glucose Urine UA 250 mg/dL (Negative); PH 6.0 (5.0-9.0); Specific Gravity - Urine 1.015 (1.005-1.025); UMIC TRIGGER UACC YES
--- NOTE | 2025-04-22 09:19 | PC.NURSE ---
bladder scan 660. assisted to commode and output 600. samples sent. pt is not able to urinate well in bed with pure-wick. she is a 1 assist to commode due to pain in her right foot.
--- NOTE | 2025-04-22 09:29 | PHA.MEDREC ---
Addendum entered by Jennie Jones [facility] 04/22/25 10:25: Per Aaron, patient also stated that she no longer takes farxiga. MED REC REVIEWED BY [facility] Addendum entered by Aaron So 04/22/25 10:14: While speaking with pt about her taking Pioglitazone she states she is not taking any diabetes tablets only insulin at this time. Original Note: Pharmacy Consult ? Medication Reconciliation Pharmacy has completed the medication reconciliation. Spoke with pt and she confirmed her medications. Per pt: she takes 16 units of Lantus at bedtime, she takes 10-12 units TIDAC of Apidra depending on her sugar levels, she takes Primidone 50mg, 2 tabs (100mg) in the morning and 1 tab (50mg) at bedtime, she takes Vitamin B12 QD but does not know the dose at this time, she still has and uses old Lidocaine patches as needed for pain and she is not taking the Sodium Carbonate anymore; pt stopped it within the first week she started it due to experiencing side effects.
--- NOTE | 2025-04-22 10:48 | MHC.CM.PN ---
IMM 04/22/25, Pt. lives alone, she does not use home health services, for DME, she uses a cane. PCP is confirmed: NITHYA Lott. HCP is her 2 dtrs, form to be completed here and added to chart. DCP: home, self care, CM to follow for DC needs.
[2025-04-22 11:55] LABS: EOS Counted 0 CELLS; EOS QC POS YES; EOS Stain Quality OK YES; WBC, Counted 4 CELLS
[2025-04-22 12:04] LABS: Glucose, Whole Blood 157 mg/dL (60-115)
--- NOTE | 2025-04-22 12:55 | PM.CNNEP ---
History of Present Illness Reason for Consult Consult date: 04/22/25 Chief Complaint Chief complaint: uncontrolled bp History of Present Illness Narrative: 79 y/o female with a medical history of CKD (unknown baseline renal function, follows Dr Nelson as outpatient), DMII, diabetic nephropathy, liver cirrhosis, HTN, HLD, osteoarthritis. Presented 04/21 with RLE pain, swelling and inability to bear weight- had unwitnessed fall x2 days prior. Nephrology consulted for LEA on CKD. last creatinine on file from prior to admission from 2022- creatinine 1.64. Patient also had significant microalbuminuria at that time, >1999, creatinine on presentation 4.19 on 04/21. 04/22 creatinine 3.86. patient had precipitous drop in blood pressure from 212/86 to 133/82 in less than an hour last evening after 20mg IVP hydralazine administered. CT abd/pelvis without hydronephrosis or renal stones- multiple renal lesions. takes amlodipine 10mg PO daily at home for blood pressure management per chart, pt states she does not have her home medication list memorized, not sure if she takes any other blood pressure medicine. she is receivign LR at 80ml/hr. she denies use of NSAIDs, though states she does take occasional tylenol. Denies alcohol/drug use. Not sure if she was eating/drinking well prior to admission. Review of Systems Review of Systems Yes all other systems are reviewed and are negative Constitutional: Reports no additional constitutional complaints Cardiovascular: Denies chest pain, Denies leg edema, Denies lightheadedness and Denies dyspnea Respiratory: Denies dyspnea Gastrointestinal: Denies abdominal pain, Denies constipation and Denies diarrhea Genitourinary: Reports no additional female genitourinary complaints Musculoskeletal: Reports arthralgias and Reports joint swelling (right ankle injury- pain/swelling) Skin/Breast: Denies rash PMFSH Past Medical History Medical History (Updated 04/22/25 @ 13:03 by Evelina Whitman DNP, KANU-WIL) Pancytopenia Cirrhosis of liver Osteoarthritis Chronic kidney disease Type 2 diabetes mellitus with renal manifestations Family History Family History Mother Diabetes High blood pressure Father Liver failure Surgical History Surgical History History of surgery Hx of cholecystectomy History of hysterectomy Hx of microdiscectomy History of colonoscopy Social History Social History Household Members: Spouse Alcohol intake: never Patient Tobacco Use Status: Never used Tobacco Smoked in Last 30 Days: No Use of substances other than those prescribed or required for medical reasons: No Advance Directives: No Advance Directives Information Provided: No Do you have a plan to hurt others: No Plan Patient : No service: No Travel History Ebola Risk: Travel/Contact With Anyone From Affected Area/s: No Has Patient Experienced Ebola Symptoms: No Meds Allergies Allergy/AdvReac Type Severity Reaction Status Date / Time No Known Allergies Allergy Verified 04/21/25 17:58 Active Medications: Current Medications Acetaminophen (Acetaminophen 325 Mg Tablet) 650 mg PO Q6H PRN PRN Reason: Pain, Mild 1-3,fever,headache Last Admin: 04/22/25 11:47 Dose: 650 mg Albuterol/Ipratropium (Albuterol/Iprat 2.5/0.5mg 3 Ml Ampul.Neb) 3 ml INHALE Q4H PRN PRN Reason: Shortness of Breath/Wheezing Amlodipine Besylate (Amlodipine Besylate 10 Mg Tablet) 10 mg PO DAILY ELIJAH; Protocol Last Admin: 04/22/25 09:07 Dose: 10 mg Calcium Carbonate (Calcium Carbonate 750 Mg Tab.Chew) 750 mg PO Q4H PRN PRN Reason: Heartburn Dextrose (Dextrose 50 % 25 Gm/50 Ml Syringe) 25 gm IVPUSH Q15M PRN; Protocol PRN Reason: per Hypoglycemia Standing Ord. Glucose (Glucose Gel 15 Gm Gel..Gram.) 15 gm PO Q15M PRN; Protocol PRN Reason: per Hypoglycemia Standing Ord. Heparin Sodium (Porcine) (Heparin Sodium,Porcine 5,000 Unit/Ml Vial) 5,000 unit SUBCUT Q12H ELIJAH Last Admin: 04/22/25 11:47 Dose: 5,000 unit Hydralazine HCl (Hydralazine Hcl 25 Mg Tablet) 25 mg PO TID ELIJAH; Protocol Lactated Ringer's (Lr) 1,000 mls @ 80 mls/hr IVCONT .[id number] ELIJAH Last Admin: 04/22/25 00:37 Dose: 80 mls/hr Insulin Human Lispro (Insulin Lispro 100 Unit/Ml 3 Ml Vial) 0 unit SUBCUT QIDACHS [facility]; Protocol Last Admin: 04/22/25 09:06 Dose: 2 unit Magnesium Hydroxide (Milk Of Magnesia 30 Ml Oral.Susp) 30 ml PO DAILY PRN PRN Reason: Constipation Melatonin (Melatonin 3 Mg Tablet) 6 mg PO BEDTIME PRN PRN Reason: Insomnia Ondansetron HCl (Ondansetron Hcl 4 Mg/2 Ml Vial) 4 mg IVPUSH Q8H PRN PRN Reason: Nausea and Vomiting Last Admin: 04/22/25 00:27 Dose: 4 mg Polyethylene Glycol (Polyethylene Glycol 3350 17 Gm Powd.Pack) 17 gm PO DAILY PRN PRN Reason: Constipation Senna (Sennosides 8.6 Mg Tablet) 17.2 mg PO BEDTIME ELIJAH Sodium Chloride (0.9 % Sodium Chloride Flush 3 Ml Syringe) 3 ml IVFLUSH QSHIFT [facility] Last Admin: 04/22/25 09:09 Dose: Not Given Home Medications ?Medication ?Instructions ?Recorded ?Confirmed ?Last Taken ?Type amlodipine 10 mg tablet 10 mg PO DAILY 04/12/22 04/22/25 Unknown History gabapentin 100 mg capsule 100 mg PO TID 04/12/22 04/22/25 Unknown History pen needle, diabetic 31 gauge x #50 ea 04/12/22 10/23/22 Unknown History 11/29 (Unifine Pentips Plus) ursodiol 500 mg tablet 500 mg PO BID 04/12/22 04/22/25 Unknown History primidone 50 mg tablet (Mysoline) 100 mg PO DAILY 07/20/22 04/22/25 04/21/25 History insulin glulisine U-100 100 10 - 12 unit subcut TIDAC 04/22/25 04/22/25 Unknown History unit/mL subcutaneous pen (Apidra SoloStar U-100 Insulin) lidocaine 5 % topical patch 1 patch topical DAILY PRN Pain 04/22/25 04/22/25 Unknown History primidone 50 mg tablet 50 mg PO BEDTIME 04/22/25 04/22/25 04/20/25 History Physical Exam Vital Signs: Last Vital Signs Temp 98.0 F 04/22/25 06:30 Pulse 68 04/22/25 09:07 Resp 16 04/22/25 09:07 BP 154/88 H 04/22/25 09:07 Pulse Ox 98 04/22/25 09:07 O2 Del Method Room Air 04/22/25 09:07 BMI result Body Mass Index 27.5 Const General: no acute distress, alert and awake Resp Effort & Inspection: normal respiratory effort and able to speak in complete sentences Auscultation: clear to auscultation bilaterally Cardio Rate: regular rate Rhythm: regular rhythm Heart sounds: S1 normal heart sound present and S2 normal heart sound present GI Palpation (GI): Soft to palpation and nontender General: Yes no CVA tenderness Back/Spine/Pelvis Back: no CVA tenderness Skin Rashes: no rashes Extrem General: No edema Results Lab Results 04/22/25 04:50 04/22/25 04:50 Lab results: Chemistry 04/21/25 04/22/25 18:20 04:50 Sodium 143 141 Potassium 5.4 H 5.1 Carbon Dioxide 22 18 L BUN 60 H 63 H Creatinine 4.19 H* 3.86 H Calcium 8.0 L D 8.1 L Hematology 04/21/25 04/22/25 18:20 04:50 WBC 4.3 L 5.9 Hgb 9.0 L 9.0 L Plt Count 122 L D 116 L Urinalysis 04/22/25 09:02 Urine Color Yellow Urine Appearance Clear Urine pH 6.0 Ur Specific [place] 1.015 Urine Protein >=1000 (4+) H Urine Glucose (UA) 250 H Urine Ketones Negative Urine Blood Negative Urine Nitrite Negative Ur Leukocyte Esterase Negative Urine RBC 0-2 Urine WBC 0-5 Ur Squamous Epith Cells 0-2 Hyaline Casts 0-2 Urine Studies 04/22/25 04/22/25 09:01 09:02 Urine Osmolality 400 Urine Creatinine 62.06 Assessment and Plan (1) Acute kidney injury: Status: Acute (2) Chronic kidney disease: Qualifiers: Chronic kidney disease stage: unspecified stage Qualified Code(s): N18.9 - Chronic kidney disease, unspecified Status: Acute Plan LEA on CKD- baseline renal function unknown given significant proteinuria over two years ago, likely has more advanced renal disease at this time, unclear but creatinine may not be far from baseline at this time- will continue to monitor. patient may have been dry on presentation given she has had some improvement in creatinine since receiving IVF in hospital. CT ruled out obstruction. UA with significant proteinuria (chronic), otherwise bland. blood pressures suboptimal- continue amlodipine 10mg daily, add hydralazine 25mg PO TID recommend avoiding nephrotoxins recommend regular blood pressure checks and close I&O monitoring recommend daily electrolyte and renal function studies continue supportive care Discussed with Dr Purvis. Procedures Date of Service Date of Service: 04/22/25
--- NOTE | 2025-04-22 13:43 | HO.PM.IMPN ---
Subjective Subjective Date of Service: 04/23/25 Interval History: c/o RLE pain Review of Systems Review of Systems: Yes all other systems are reviewed and are negative Physical Exam Vital Signs: Vital Signs: Last Vital Signs Temp 98.0 F 04/22/25 06:30 Pulse 68 04/22/25 09:07 Resp 16 04/22/25 09:07 BP 154/88 H 04/22/25 09:07 Pulse Ox 98 04/22/25 09:07 O2 Del Method Room Air 04/22/25 09:07 BMI result Body Mass Index 27.5 Gen: in no acute distress HEENT: sclera anicteric, moist mucus membranes Neck: supple Lungs: clear to auscultation bilaterally Heart: regular rate and rhythm, no murmurs Abd: soft, non-tender, non-distended Ext: no edema Skin: warm/well-perfused Neuro: alert and oriented x3, no focal findings Psych: appropriate affect Objective Data Active Medications Acetaminophen (Acetaminophen 325 Mg Tablet) 650 mg PO Q6H PRN PRN Reason: Pain, Mild 1-3,fever,headache Last Admin: 04/22/25 11:47 Dose: 650 mg Documented By: RONY Albuterol/Ipratropium (Albuterol/Iprat 2.5/0.5mg 3 Ml Ampul.Neb) 3 ml INHALE Q4H PRN PRN Reason: Shortness of Breath/Wheezing Amlodipine Besylate (Amlodipine Besylate 10 Mg Tablet) 10 mg PO DAILY [facility]; Protocol Last Admin: 04/22/25 09:07 Dose: 10 mg Documented By: KING Calcium Carbonate (Calcium Carbonate 750 Mg Tab.Chew) 750 mg PO Q4H PRN PRN Reason: Heartburn Dextrose (Dextrose 50 % 25 Gm/50 Ml Syringe) 25 gm IVPUSH Q15M PRN; Protocol PRN Reason: per Hypoglycemia Standing Ord. Glucose (Glucose Gel 15 Gm Gel..Gram.) 15 gm PO Q15M PRN; Protocol PRN Reason: per Hypoglycemia Standing Ord. Heparin Sodium (Porcine) (Heparin Sodium,Porcine 5,000 Unit/Ml Vial) 5,000 unit SUBCUT Q12H [facility] Last Admin: 04/22/25 11:47 Dose: 5,000 unit Documented By: RONY Hydralazine HCl (Hydralazine Hcl 25 Mg Tablet) 25 mg PO TID [facility]; Protocol Lactated Ringer's (Lr) 1,000 mls @ 80 mls/hr IVCONT .[id number] [facility] Last Admin: 04/22/25 00:37 Dose: 80 mls/hr Documented By: NAYE Insulin Human Lispro (Insulin Lispro 100 Unit/Ml 3 Ml Vial) 0 unit SUBCUT QIDACHS [facility]; Protocol Last Admin: 04/22/25 09:06 Dose: 2 unit Documented By: KING Magnesium Hydroxide (Milk Of Magnesia 30 Ml Oral.Susp) 30 ml PO DAILY PRN PRN Reason: Constipation Melatonin (Melatonin 3 Mg Tablet) 6 mg PO BEDTIME PRN PRN Reason: Insomnia Ondansetron HCl (Ondansetron Hcl 4 Mg/2 Ml Vial) 4 mg IVPUSH Q8H PRN PRN Reason: Nausea and Vomiting Last Admin: 04/22/25 00:27 Dose: 4 mg Documented By: NAYE Polyethylene Glycol (Polyethylene Glycol 3350 17 Gm Powd.Pack) 17 gm PO DAILY PRN PRN Reason: Constipation Senna (Sennosides 8.6 Mg Tablet) 17.2 mg PO BEDTIME [facility] Sodium Chloride (0.9 % Sodium Chloride Flush 3 Ml Syringe) 3 ml IVFLUSH QSHIFT [facility] Last Admin: 04/22/25 09:09 Dose: Not Given Documented By: KING Non-Admin Reason: IV Running Labs 04/23/25 05:53 04/23/25 05:53 Labs: Laboratory Results - last 24 hr 04/21/25 04/22/25 04/22/25 18:20 04:50 07:26 MCV 94.6 93.6 MCH 32.4 31.8 MCHC 34.2 34.0 RDW 13.3 13.2 Plt Count 122 L D 116 L MPV 10.0 10.6 Immature Gran % (Auto) 0.2 0.3 Neut % (Auto) 57.3 73.6 H Lymph % (Auto) 27.7 16.5 L Grady % (Auto) 10.9 8.2 Eos % (Auto) 3.2 0.5 Baso % (Auto) 0.7 0.9 Lymph # (Auto) 1.2 1.0 L Grady # (Auto) 0.5 0.5 Eos # (Auto) 0.1 0.0 Baso # (Auto) 0.0 0.1 Abs Immat Gran (auto) 0.01 0.02 Absolute Neuts (auto) 2.5 4.3 Absolute Nucleated RBC 0.000 0.000 Nucleated RBC % (auto) 0.0 0.0 ESR 62 H Anion Gap 12 14 Estim Creat Clear Calc 11.0 11.9 Estimated GFR 10 11 POC Glucose 158 H Random Glucose 213 H 198 H Estimat Average Glucose 146 Hemoglobin A1c % 6.7 H Calcium 8.0 L D 8.1 L Magnesium 1.7 Iron 82 TIBC 261 % Saturation 31 Unsat Iron Binding 179 Total Bilirubin 0.2 AST 117 H ALT 114 H Alkaline Phosphatase 187 H C-Reactive Protein 0.39 B-Natriuretic Peptide 150 H Total Protein 7.0 Albumin 3.4 L Lipase 45 Vitamin B12 1254 H Urine Color Urine Appearance Urine pH Ur Specific Lee Urine Protein Urine Glucose (UA) Urine Ketones Urine Blood Urine Nitrite Ur Leukocyte Esterase Urine RBC Urine WBC Ur Squamous Epith Cells Urine Bacteria Hyaline Casts Urine Eosinophils % Urine Osmolality Urine Creatinine 04/22/25 04/22/25 04/22/25 09:01 09:02 11:59 MCV MCH MCHC RDW Plt Count MPV Immature Gran % (Auto) Neut % (Auto) Lymph % (Auto) Grady % (Auto) Eos % (Auto) Baso % (Auto) Lymph # (Auto) Grady # (Auto) Eos # (Auto) Baso # (Auto) Abs Immat Gran (auto) Absolute Neuts (auto) Absolute Nucleated RBC Nucleated RBC % (auto) ESR Anion Gap Estim Creat Clear Calc Estimated GFR POC Glucose 157 H Random Glucose Estimat Average Glucose Hemoglobin A1c % Calcium Magnesium Iron TIBC % Saturation Unsat Iron Binding Total Bilirubin AST ALT Alkaline Phosphatase C-Reactive Protein B-Natriuretic Peptide Total Protein Albumin Lipase Vitamin B12 Urine Color Yellow Urine Appearance Clear Urine pH 6.0 Ur Specific Lee 1.015 Urine Protein >=1000 (4+) H Urine Glucose (UA) 250 H Urine Ketones Negative Urine Blood Negative Urine Nitrite Negative Ur Leukocyte Esterase Negative Urine RBC 0-2 Urine WBC 0-5 Ur Squamous Epith Cells 0-2 Urine Bacteria None Seen Hyaline Casts 0-2 Urine Eosinophils % 0.0 Urine Osmolality 400 Urine Creatinine 62.[address] 04/22/25 1. Generalized edema. No discrete fluid collection. No acute fracture identified. 2. No more than mild degenerative change. 3. Calcific tendinosis of the peroneus longus and brevis. renal doppler US 04/22/25 Medical renal disease. No hydronephrosis. Bosniak type I cyst, right kidney. Bosniak type II cysts, left kidney. No hemodynamically significant stenosis by ultrasound criteria at either main renal artery. Slight increased resistive indicis related to medical renal disease. Assessment and Plan (1) Chronic kidney disease: Status: Acute Plan d2, 79yo M with DM2 + neuropathy, cirrhosis [PBC? on ursodiol], CKD, HTN, HLD, OA brought in with RLE pain s/p mechanical fall, admitted for LEA/CKD, HTN urgency HTN urgency - improved, resumed amlodipine and started hydralazine LEA/CKD - unknown baseline, continue IV fluid hydration, no TANNER by Doppler, Nephrology consulted + following hyperK - resolved p Lokelma fall - no fracture/fluid collection on CT - PT eval anemia - likely anemia of CKD, H+H stable cirrhosis- ?PBC - continue ursodiol HLD - statin DM2 - basal-bolus insulin; decrease basal dose given recent hypoglycemia VTE ppx - UFH dispo - PT eval In my clinical judgment, the patient requires continued inpatient hospitalization for the following reasons: LEA Total time managing care of this patient today: 35 minutes. Quality Stroke Does the patient have a stroke diagnosis?: No Reason for No Anti-thrombotic by Day Two: N/A - Med Ordered VTE Prior VTE?: No VTE Risk Level:: Medical - moderate - high VTE Device Contraindication: N/A - Device Ordered VTE Drug Contraindication: N/A - Med Ordered
[2025-04-22] MEDS: Lidocaine 4 % Patch ADH..PATCH 1 PATCH TRANSDERMA (14:36)
[2025-04-22 16:09] LABS: Protein/Creatinine Ratio, Ur 7.79 (<0.2); Total Protein Urine Random 483 mg/dL (<12)
[2025-04-22 17:26] LABS: Glucose, Whole Blood 147 mg/dL (60-115)
--- NOTE | 2025-04-22 19:17 | MHC.EDTECH ---
Pt had 800cc urine output on commode measured with hat.
[2025-04-22 22:30] LABS: Glucose, Whole Blood 192 mg/dL (60-115)
[2025-04-22] MEDS: Insulin Glargine,Hum.rec.anlog 100 UNIT/ML 10 ML VIAL 8 UNIT SUBCUT (22:49)
--- NOTE | 2025-04-22 23:10 | PC.NURSE ---
assumed care of patient at this time, pt in stretcher no apparent distress noted
[2025-04-23] VITALS (11 sets, daily range): BP systolic 112–210; BP diastolic 56–84; PULSE 62–80; RESP 14–17; TEMP 36.1–37; O2SAT 95–99; BMI 27.4
[2025-04-23] MEDS: Lactated Ringers 1,000 ML 80 ML IVCONT ×2 (02:19→14:13)
[2025-04-23 06:28] LABS: Hematocrit 26.3 % (37.0-47.0); Hemoglobin 8.8 g/dl (12.0-16.0); Mean Corpuscular HGB Conc 33.5 g/dl (31.0-35.0); Mean Corpuscular Hemoglobin 31.4 pg (27.0-33.0); Mean Corpuscular Volume 93.9 fL (80.0-98.0); NRBC Abs Auto 0.000 X10*3/uL (0.0-0.012); NRBC Pct Auto 0.0 /100WBC (0.0-0.2); Platelet Count 122 X10*3/uL (160-400); Red Blood Count 2.80 X10*6/uL (4.20-5.50); White Blood Count 4.1 X10*3/uL (4.8-10.8)
[2025-04-23 06:48] LABS: Anion Gap 12 (12-20); Blood Urea Nitrogen 56 mg/dL (9-16); Calcium 8.3 mg/dL (8.4-10.2); Carbon Dioxide 21 mmol/L (22-29); Chloride 115 mmol/L (96-108); Creatinine Clr Calc Pharmacy 13.0; Estimated Glomerular Filt Rate 12; Potassium 5.0 mmol/L (3.3-5.1); Sodium 143 mmol/L (135-145)
[2025-04-23 07:25] LABS: Glucose, Whole Blood 98 mg/dL (60-115)
--- NOTE | 2025-04-23 08:26 | PC.NURSE ---
BP elevated in the 200's systolic, pt asymptomatic, MD Ayers notified via tiger text and available scheduled medications given prior to transport to floor. Receiving RN notified as well.
[2025-04-23] MEDS: oxyCODONE HCl Immed Release 5 MG TABLET PO (09:12)
--- NOTE | 2025-04-23 09:23 | PM.PNNEP ---
Subjective Subjective Date of Service: 04/23/25 Interval history: Pt here with ankle injury after fall at home. 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 last creatinine on file from prior to admission from 2022- creatinine 1.64. Patient also had significant microalbuminuria at that time, >1999. Urine protein/creatinine ratio is 7.8 grams creatinine on presentation 4.19 on 04/21. 8 creatinine 3.86. / creatinine 3.54 patient had precipitous drop in blood pressure from 212/86 to 133/82 CT abd/pelvis without hydronephrosis or renal stones- multiple renal lesions. takes amlodipine 10mg PO daily at home for blood pressure management per chart, pt states she does not have her home medication list memorized, not sure if she takes any other blood pressure medicine. she is receiving LR at 80ml/hr. Blood pressures have been elevated into 190s-200s this a.m. she denies use of NSAIDs, though states she does take occasional tylenol. Denies alcohol/drug use. Not sure if she was eating/drinking well prior to admission. states she is feeling better today though right ankle still painful. Physical Exam Vital Signs: Vital Signs: Last Vital Signs Temp 98.0 F 04/23/25 08:57 Pulse 67 04/23/25 08:57 Resp 17 04/23/25 08:57 BP 191/84 H 04/23/25 08:57 Pulse Ox 98 04/23/25 08:57 O2 Del Method Room Air 04/23/25 08:57 O2 Flow Rate 10 04/22/25 19:18 BMI result Body Mass Index 27.5 Const: General: no acute distress, alert and awake Resp: Effort & Inspection: normal respiratory effort and able to speak in complete sentences Auscultation: clear to auscultation bilaterally Cardio: Rate: regular rate Rhythm: regular rhythm Heart sounds: S1 normal heart sound present and S2 normal heart sound present GI: Palpation (GI): Soft to palpation and nontender : General: Yes no CVA tenderness Back/Spine/Pelvis: Back: no CVA tenderness Skin: Rashes: no rashes Extrem: General: No edema Objective Data Labs 04/23/25 05:53 04/23/25 05:53 Labs: Laboratory Results - last 24 hr 04/22/25 04/22/25 04/22/25 09:02 11:59 15:14 WBC RBC Hgb Hct MCV MCH MCHC RDW Plt Count MPV Absolute Nucleated RBC Nucleated RBC % (auto) Sodium Potassium Chloride Carbon Dioxide Anion Gap BUN Creatinine Estim Creat Clear Calc Estimated GFR POC Glucose 157 H Random Glucose Calcium Urine Eosinophils % 0.0 U Random Total Protein 483 H Urine Creatinine 62.04 Protein/Creatinin Ratio 7.79 H 04/22/25 04/22/25 04/23/25 17:22 22:25 05:53 WBC 4.1 L RBC 2.80 L Hgb 8.8 L Hct 26.3 L MCV 93.9 MCH 31.4 MCHC 33.5 RDW 13.1 Plt Count 122 L MPV 10.6 Absolute Nucleated RBC 0.000 Nucleated RBC % (auto) 0.0 Sodium 143 Potassium 5.0 Chloride 115 H Carbon Dioxide 21 L Anion Gap 12 BUN 56 H Creatinine 3.54 H Estim Creat Clear Calc 13.0 Estimated GFR 12 POC Glucose 147 H 192 H Random Glucose 100 Calcium 8.3 L Urine Eosinophils % U Random Total Protein Urine Creatinine Protein/Creatinin Ratio 04/23/25 07:19 WBC RBC Hgb Hct MCV MCH MCHC RDW Plt Count MPV Absolute Nucleated RBC Nucleated RBC % (auto) Sodium Potassium Chloride Carbon Dioxide Anion Gap BUN Creatinine Estim Creat Clear Calc Estimated GFR POC Glucose 98 Random Glucose Calcium Urine Eosinophils % U Random Total Protein Urine Creatinine Protein/Creatinin Ratio Procedures Date of Service Date of Service: 04/23/25 Assessment & Plan Assessment and plan (1) Acute kidney injury: Status: Acute (2) Chronic kidney disease: Status: Acute (3) Proteinuria: Status: Acute Plan LEA on CKD- baseline renal function unknown given significant proteinuria over two years ago, likely has more advanced renal disease at this time, unclear but creatinine may not be far from baseline at this time- will continue to monitor. patient may have been dry on presentation given she has had some improvement in creatinine since receiving IVF in hospital. CT ruled out obstruction. UA with significant proteinuria, chronic, no blood or other cells. Urine protein/creatinine ratio 7.8 grams. blood pressures suboptimal- continue amlodipien 10mg daily and med adjustments from this a.m. hydralazine 100mg PO TID; increase carvedilol to 12.5mg PO BID. recommend avoiding nephrotoxins recommend regular blood pressure checks and close I&O monitoring recommend daily electrolyte and renal function studies continue supportive care Discussed with Jennifer. Time Spent With Patient Time: Total time managing care of this patient today ____ minutes. Progress Note: Quality Stroke Does the patient have a stroke diagnosis?: No Reason for No Anti-thrombotic by Day Two: N/A - Med Ordered
--- NOTE | 2025-04-23 09:50 | HO.PM.IMPN ---
Subjective Subjective Date of Service: 04/23/25 Interval History: c/o pain and swelling of L ankle reports has been doing lots of gardening/yard work but no known tick bite SCr a little better Review of Systems Review of Systems: Yes all other systems are reviewed and are negative Physical Exam Vital Signs: Vital Signs: Last Vital Signs Temp 98.0 F 04/23/25 08:57 Pulse 67 04/23/25 08:57 Resp 17 04/23/25 08:57 BP 191/84 H 04/23/25 08:57 Pulse Ox 98 04/23/25 08:57 O2 Del Method Room Air 04/23/25 08:57 O2 Flow Rate 10 04/22/25 19:18 BMI result Body Mass Index 27.5 Gen: in no acute distress HEENT: sclera anicteric, moist mucus membranes Neck: supple Lungs: clear to auscultation bilaterally Heart: regular rate and rhythm, no murmurs Abd: soft, non-tender, non-distended Ext: no edema, R ankle slightly swollen and pain with ROM Skin: warm/well-perfused Neuro: alert and oriented x3, no focal findings Psych: appropriate affect Objective Data Active Medications Acetaminophen (Acetaminophen 325 Mg Tablet) 650 mg PO Q6H PRN PRN Reason: Pain, Mild 1-3,fever,headache Last Admin: 04/23/25 09:12 Dose: 650 mg Documented By: JORGE Albuterol/Ipratropium (Albuterol/Iprat 2.5/0.5mg 3 Ml Ampul.Neb) 3 ml INHALE Q4H PRN PRN Reason: Shortness of Breath/Wheezing Amlodipine Besylate (Amlodipine Besylate 10 Mg Tablet) 10 mg PO DAILY [facility]; Protocol Last Admin: 04/23/25 08:14 Dose: 10 mg Documented By: OSMAN Atorvastatin Calcium (Atorvastatin Calcium 20 Mg Tablet) 20 mg PO DAILY [facility] Last Admin: 04/23/25 08:14 Dose: 20 mg Documented By: OSMAN Calcium Carbonate (Calcium Carbonate 750 Mg Tab.Chew) 750 mg PO Q4H PRN PRN Reason: Heartburn Carvedilol (Carvedilol 3.125 Mg Tablet) 3.125 mg PO BID [facility]; Protocol Last Admin: 04/23/25 09:01 Dose: 3.125 mg Documented By: JORGE Dextrose (Dextrose 50 % 25 Gm/50 Ml Syringe) 25 gm IVPUSH Q15M PRN; Protocol PRN Reason: per Hypoglycemia Standing Ord. Gabapentin (Gabapentin 100 Mg Capsule) 100 mg PO TID [facility] Last Admin: 04/23/25 08:14 Dose: 100 mg Documented By: OSMAN Glucose (Glucose Gel 15 Gm Gel..Gram.) 15 gm PO Q15M PRN; Protocol PRN Reason: per Hypoglycemia Standing Ord. Heparin Sodium (Porcine) (Heparin Sodium,Porcine 5,000 Unit/Ml Vial) 5,000 unit SUBCUT Q12H [facility] Last Admin: 04/22/25 23:37 Dose: 5,000 unit Documented By: TJ Hydralazine HCl (Hydralazine Hcl 50 Mg Tablet) 100 mg PO TID [facility]; Protocol Last Admin: 04/23/25 08:15 Dose: 100 mg Documented By: OSMAN Lactated Ringer's (Lr) 1,000 mls @ 80 mls/hr IVCONT .[id number] [facility] Last Admin: 04/23/25 02:19 Dose: 80 mls/hr Documented By: TJ Insulin Glargine (Insulin Glargine,Hum.Rec.Anlog 100 Unit/Ml 10 Ml Vial) 8 unit SUBCUT BEDTIME [facility] Last Admin: 04/22/25 22:49 Dose: 8 unit Documented By: GUSTAVO Insulin Human Lispro (Insulin Lispro 100 Unit/Ml 3 Ml Vial) 0 unit SUBCUT QIDACHS [facility]; Protocol Last Admin: 04/23/25 07:21 Dose: Not Given Documented By: OSMAN Non-Admin Reason: POC 98 Lidocaine (Lidocaine 4 % Patch Adh..Patch) 1 patch TRANSDERMA DAILY PRN PRN Reason: Pain Last Admin: 04/22/25 14:36 Dose: 1 patch Documented By: GUSTAVO Magnesium Hydroxide (Milk Of Magnesia 30 Ml Oral.Susp) 30 ml PO DAILY PRN PRN Reason: Constipation Melatonin (Melatonin 3 Mg Tablet) 6 mg PO BEDTIME PRN PRN Reason: Insomnia Ondansetron HCl (Ondansetron Hcl 4 Mg/2 Ml Vial) 4 mg IVPUSH Q8H PRN PRN Reason: Nausea and Vomiting Last Admin: 04/22/25 00:27 Dose: 4 mg Documented By: NAYE Oxycodone HCl (Oxycodone Hcl Immed Release 5 Mg Tablet) 5 mg PO Q4H PRN PRN Reason: Pain, Severe (Pain Scale 7-10) Last Admin: 04/23/25 09:12 Dose: 5 mg Documented By: JORGE Polyethylene Glycol (Polyethylene Glycol 3350 17 Gm Powd.Pack) 17 gm PO DAILY PRN PRN Reason: Constipation Primidone (Primidone 50 Mg Tablet) 50 mg PO BEDTIME [facility] Last Admin: 04/22/25 22:54 Dose: 50 mg Documented By: GUSTAVO Primidone (Primidone 50 Mg Tablet) 100 mg PO DAILY [facility] Last Admin: 04/23/25 09:01 Dose: 100 mg Documented By: JORGE Senna (Sennosides 8.6 Mg Tablet) 17.2 mg PO BEDTIME [facility] Last Admin: 04/22/25 22:53 Dose: 17.2 mg Documented By: GUSTAVO Sodium Chloride (0.9 % Sodium Chloride Flush 3 Ml Syringe) 3 ml IVFLUSH QSHIFT [facility] Last Admin: 04/23/25 07:21 Dose: Not Given Documented By: OSMAN Non-Admin Reason: IV Running Ursodiol (Ursodiol 300 Mg Capsule) 600 mg PO BID [facility] Last Admin: 04/22/25 22:54 Dose: 600 mg Documented By: GUSTAVO Labs 04/23/25 05:53 04/23/25 05:53 Labs: Laboratory Results - last 24 hr 04/22/25 04/22/25 04/22/25 09:02 11:59 15:14 MCV MCH MCHC RDW Plt Count MPV Absolute Nucleated RBC Nucleated RBC % (auto) Anion Gap Estim Creat Clear Calc Estimated GFR POC Glucose 157 H Random Glucose Calcium Urine Eosinophils % 0.0 U Random Total Protein 483 H Urine Creatinine 62.04 Protein/Creatinin Ratio 7.79 H 04/22/25 04/22/25 04/23/25 17:22 22:25 05:53 MCV 93.9 MCH 31.4 MCHC 33.5 RDW 13.1 Plt Count 122 L MPV 10.6 Absolute Nucleated RBC 0.000 Nucleated RBC % (auto) 0.0 Anion Gap 12 Estim Creat Clear Calc 13.0 Estimated GFR 12 POC Glucose 147 H 192 H Random Glucose 100 Calcium 8.3 L Urine Eosinophils % U Random Total Protein Urine Creatinine Protein/Creatinin Ratio 04/23/25 07:19 MCV MCH MCHC RDW Plt Count MPV Absolute Nucleated RBC Nucleated RBC % (auto) Anion Gap Estim Creat Clear Calc Estimated GFR POC Glucose 98 Random Glucose Calcium Urine Eosinophils % U Random Total Protein Urine Creatinine Protein/Creatinin Ratio Assessment and Plan (1) Chronic kidney disease: Status: Acute Plan d3, 79yo M with DM2 + neuropathy, cirrhosis [PBC? on ursodiol], CKD, HTN, HLD, OA brought in with RLE pain s/p mechanical fall, admitted for LEA/CKD, HTN urgency HTN urgency - continue amlodipine, increase hydralazine, add carvedilol LEA/CKD4, nephrotic-range proteinuria - unknown baseline, improved somewhat with IV hydration, no TANNER by Doppler, Nephrology consulted + following, needs better BP control hyperK - resolved p Lokelma fall - no fracture/fluid collection on CT - PT eval: STR - tickborne panel/L[place], uric acid anemia - likely anemia of CKD, H+H stable cirrhosis- ?PBC - continue ursodiol HLD - statin DM2 - basal-bolus insulin; decrease basal dose given recent hypoglycemia VTE ppx - UFH dispo - STR In my clinical judgment, the patient requires continued inpatient hospitalization for the following reasons: LEA, BP control Total time managing care of this patient today: 35 minutes. Quality Stroke Does the patient have a stroke diagnosis?: No Reason for No Anti-thrombotic by Day Two: N/A - Med Ordered VTE Prior VTE?: No VTE Risk Level:: Medical - moderate - high VTE Device Contraindication: N/A - Device Ordered VTE Drug Contraindication: N/A - Med Ordered
[2025-04-23 10:30] LABS: Uric Acid 7.0 mg/dL (2.4-5.7)
[2025-04-23 11:36] LABS: Glucose, Whole Blood 186 mg/dL (60-115)
--- NOTE | 2025-04-23 11:38 | MHC.CM.PN ---
PT is recommending STR; CM will continue to follow.
[2025-04-23] MEDS: 0.9 % Sodium Chloride Flush 3 ML SYRINGE IVFLUSH (14:14)
--- NOTE | 2025-04-23 15:46 | MHC.CM.PN ---
Patient has 4 bed offers. CM spoke with Daughter/Zena @ listed # and she needs to speak with her Mother before she and Patient can make their choice of facilities. CM will continue to follow.
[2025-04-23 16:28] LABS: Glucose, Whole Blood 142 mg/dL (60-115)
[2025-04-23] MEDS: Insulin Glargine,Hum.rec.anlog 100 UNIT/ML 10 ML VIAL 8 UNIT SUBCUT (20:55)
[2025-04-23 21:22] LABS: Glucose, Whole Blood 257 mg/dL (60-115)
[2025-04-24] VITALS (7 sets, daily range): BP systolic 111–153; BP diastolic 56–69; PULSE 61–72; RESP 16–17; TEMP 36.2–36.5; O2SAT 95–96
[2025-04-24 07:38] LABS: Glucose, Whole Blood 108 mg/dL (60-115)
[2025-04-24 07:57] LABS: Anion Gap 12 (12-20); Blood Urea Nitrogen 54 mg/dL (9-16); Calcium 8.1 mg/dL (8.4-10.2); Carbon Dioxide 20 mmol/L (22-29); Chloride 111 mmol/L (96-108); Creatinine Clr Calc Pharmacy 12.2; Estimated Glomerular Filt Rate 12; Potassium 4.9 mmol/L (3.3-5.1); Sodium 138 mmol/L (135-145)
[2025-04-24 08:33] LABS: Lyme Abs Screen <0.90 index
--- NOTE | 2025-04-24 10:06 | HO.PM.IMPN ---
Subjective Subjective Date of Service: 04/24/25 Interval History: SCr 3.78 BP improved c/o R ankle pain/swelling Review of Systems Review of Systems: Yes all other systems are reviewed and are negative Physical Exam Vital Signs: Vital Signs: Last Vital Signs Temp 97.3 F 04/24/25 07:44 Pulse 63 04/24/25 07:44 Resp 17 04/24/25 07:44 BP 144/67 H 04/24/25 07:44 Pulse Ox 96 04/24/25 07:44 O2 Del Method Room Air 04/24/25 07:44 O2 Flow Rate 10 04/22/25 19:18 BMI result Body Mass Index 27.4 Gen: in no acute distress HEENT: sclera anicteric, moist mucus membranes Neck: supple Lungs: clear to auscultation bilaterally Heart: regular rate and rhythm, no murmurs Abd: soft, non-tender, non-distended Ext: no edema, R ankle slightly swollen and pain with ROM Skin: warm/well-perfused Neuro: alert and oriented x3, no focal findings Psych: appropriate affect Objective Data Active Medications Acetaminophen (Acetaminophen 325 Mg Tablet) 650 mg PO Q6H PRN PRN Reason: Pain, Mild 1-3,fever,headache Last Admin: 04/23/25 09:12 Dose: 650 mg Documented By: JORGE Albuterol/Ipratropium (Albuterol/Iprat 2.5/0.5mg 3 Ml Ampul.Neb) 3 ml INHALE Q4H PRN PRN Reason: Shortness of Breath/Wheezing Amlodipine Besylate (Amlodipine Besylate 10 Mg Tablet) 10 mg PO DAILY [facility]; Protocol Last Admin: 04/23/25 08:14 Dose: 10 mg Documented By: OSMAN Atorvastatin Calcium (Atorvastatin Calcium 20 Mg Tablet) 20 mg PO DAILY [facility] Last Admin: 04/23/25 08:14 Dose: 20 mg Documented By: OSMAN Calcium Carbonate (Calcium Carbonate 750 Mg Tab.Chew) 750 mg PO Q4H PRN PRN Reason: Heartburn Carvedilol (Carvedilol 25 Mg Tablet) 25 mg PO BID [facility]; Protocol Last Admin: 04/23/25 20:56 Dose: 25 mg Documented By: AIDE Dextrose (Dextrose 50 % 25 Gm/50 Ml Syringe) 25 gm IVPUSH Q15M PRN; Protocol PRN Reason: per Hypoglycemia Standing Ord. Gabapentin (Gabapentin 100 Mg Capsule) 100 mg PO TID [facility] Last Admin: 04/23/25 20:56 Dose: 100 mg Documented By: AIDE Glucose (Glucose Gel 15 Gm Gel..Gram.) 15 gm PO Q15M PRN; Protocol PRN Reason: per Hypoglycemia Standing Ord. Heparin Sodium (Porcine) (Heparin Sodium,Porcine 5,000 Unit/Ml Vial) 5,000 unit SUBCUT Q12H [facility] Last Admin: 04/24/25 00:24 Dose: 5,000 unit Documented By: AIDE Hydralazine HCl (Hydralazine Hcl 50 Mg Tablet) 100 mg PO TID [facility]; Protocol Last Admin: 04/23/25 20:55 Dose: 100 mg Documented By: AIDE Hydromorphone HCl (Hydromorphone Hcl 0.5 Mg/0.5 Ml Syringe) 0.25 mg IVPUSH Q4H PRN; Protocol PRN Reason: Pain, Severe (Pain Scale 7-10) Last Admin: 04/23/25 16:47 Dose: 0.25 mg Documented By: JORGE Lactated Ringer's (Lr) 1,000 mls @ 100 mls/hr IVCONT .Q10H [facility] Insulin Glargine (Insulin Glargine,Hum.Rec.Anlog 100 Unit/Ml 10 Ml Vial) 8 unit SUBCUT BEDTIME [facility] Last Admin: 04/23/25 20:55 Dose: 8 unit Documented By: AIDE Insulin Human Lispro (Insulin Lispro 100 Unit/Ml 3 Ml Vial) 0 unit SUBCUT QIDACHS [facility]; Protocol Last Admin: 04/23/25 20:54 Dose: Not Given Documented By: AIDE Non-Admin Reason: No Insulin Coverage Lidocaine (Lidocaine 4 % Patch Adh..Patch) 1 patch TRANSDERMA DAILY PRN PRN Reason: Pain Last Admin: 04/22/25 14:36 Dose: 1 patch Documented By: GUSTAVO Magnesium Hydroxide (Milk Of Magnesia 30 Ml Oral.Susp) 30 ml PO DAILY PRN PRN Reason: Constipation Melatonin (Melatonin 3 Mg Tablet) 6 mg PO BEDTIME PRN PRN Reason: Insomnia Last Admin: 04/23/25 20:56 Dose: 6 mg Documented By: AIDE Ondansetron HCl (Ondansetron Hcl 4 Mg/2 Ml Vial) 4 mg IVPUSH Q8H PRN PRN Reason: Nausea and Vomiting Last Admin: 04/22/25 00:27 Dose: 4 mg Documented By: NAYE Oxycodone HCl (Oxycodone Hcl Immed Release 5 Mg Tablet) 5 mg PO Q4H PRN PRN Reason: Pain, Severe (Pain Scale 7-10) Last Admin: 04/23/25 09:12 Dose: 5 mg Documented By: JORGE Polyethylene Glycol (Polyethylene Glycol 3350 17 Gm Powd.Pack) 17 gm PO DAILY PRN PRN Reason: Constipation Primidone (Primidone 50 Mg Tablet) 50 mg PO BEDTIME [facility] Last Admin: 04/23/25 20:55 Dose: 50 mg Documented By: AIDE Primidone (Primidone 50 Mg Tablet) 100 mg PO DAILY [facility] Last Admin: 04/23/25 09:01 Dose: 100 mg Documented By: JORGE Senna (Sennosides 8.6 Mg Tablet) 17.2 mg PO BEDTIME [facility] Last Admin: 04/23/25 20:56 Dose: 17.2 mg Documented By: AIDE Sodium Chloride (0.9 % Sodium Chloride Flush 3 Ml Syringe) 3 ml IVFLUSH QSHIFT [facility] Last Admin: 04/24/25 00:19 Dose: Not Given Documented By: AIDE Non-Admin Reason: IV Running Ursodiol (Ursodiol 300 Mg Capsule) 600 mg PO BID [facility] Last Admin: 04/23/25 20:56 Dose: 600 mg Documented By: AIDE Labs 04/23/25 05:53 04/24/25 07:20 Labs: Laboratory Results - last 24 hr 04/22/25 04/23/25 04/23/25 04:50 05:53 11:06 Hold Purple Top Anion Gap Estim Creat Clear Calc Estimated GFR POC Glucose Random Glucose Uric Acid 7.0 H Calcium Erythropoietin 5.7 Lyme Screen IgG & IgM <0.90 04/23/25 04/23/25 04/23/25 11:31 16:17 20:39 Hold Purple Top Anion Gap Estim Creat Clear Calc Estimated GFR POC Glucose 186 H 142 H 257 H Random Glucose Uric Acid Calcium Erythropoietin Lyme Screen IgG & IgM 04/24/25 04/24/25 04/24/25 07:20 07:31 07:34 Hold Purple Top SEE NOTE Anion Gap 12 Estim Creat Clear Calc 12.2 Estimated GFR 12 POC Glucose 108 Random Glucose 117 H Uric Acid Calcium 8.1 L Erythropoietin Lyme Screen IgG & IgM Assessment and Plan (1) Chronic kidney disease: Status: Acute Plan d4, 79yo M with DM2 + neuropathy, cirrhosis [PBC? on ursodiol], CKD, HTN, HLD, OA brought in with RLE pain s/p mechanical fall, admitted for LEA/CKD, HTN urgency HTN urgency - continue amlodipine, added hydralazine + carvedilol LEA/CKD4, nephrotic-range proteinuria - unknown baseline, improved somewhat with IV hydration and will give another round but this may be her baseline Cr, no TANNER by Doppler, Nephrology consulted + following, needs better BP control in general hyperK - resolved p Lokelma fall ankle swelling - no fracture/fluid collection on CT; likely sprain - PT eval: STR - tickborne panel/Lyme pending anemia - likely anemia of CKD, H+H stable cirrhosis- ?PBC - continue ursodiol HLD - statin DM2 - basal-bolus insulin; decreased basal dose given recent hypoglycemia VTE ppx - UFH dispo - STR In my clinical judgment, the patient requires continued inpatient hospitalization for the following reasons: LEA, BP control Total time managing care of this patient today: 35 minutes. Quality Stroke Does the patient have a stroke diagnosis?: No Reason for No Anti-thrombotic by Day Two: N/A - Med Ordered VTE Prior VTE?: No VTE Risk Level:: Medical - moderate - high VTE Device Contraindication: N/A - Device Ordered VTE Drug Contraindication: N/A - Med Ordered
[2025-04-24] MEDS: 0.9 % Sodium Chloride Flush 3 ML SYRINGE IVFLUSH ×2 (10:10→22:33)
[2025-04-24] MEDS: Lactated Ringers 1,000 ML 100 ML IVCONT ×2 (10:11→22:33)
[2025-04-24 12:54] LABS: Glucose, Whole Blood 202 mg/dL (60-115)
[2025-04-24 14:58] LABS: A. Phagocytphilium DNA,RT-PCR NOT DETECTED (NOT DETECTED); Babesia Microti DNA, RT-PCR NOT DETECTED (NOT DETECTED); Borrelia Miyamotoi,DNA RT-PCR NOT DETECTED (NOT DETECTED); E.Chaffeensis DNA RT-PCR NOT DETECTED (NOT DETECTED); Lyme(Borrelia ssp)DNA RT-PCR NOT DETECTED (NOT DETECTED)
[2025-04-24 15:59] LABS: Glucose, Whole Blood 261 mg/dL (60-115)
[2025-04-24 20:32] LABS: Glucose, Whole Blood 246 mg/dL (60-115)
[2025-04-24] MEDS: Insulin Glargine,Hum.rec.anlog 100 UNIT/ML 10 ML VIAL 8 UNIT SUBCUT (22:32)
[2025-04-25] VITALS (9 sets, daily range): BP systolic 111–190; BP diastolic 53–81; PULSE 60–75; RESP 14–18; TEMP 36.3–37.1; O2SAT 92–97
[2025-04-25 07:06] LABS: Anion Gap 13 (12-20); Blood Urea Nitrogen 58 mg/dL (9-16); Calcium 8.1 mg/dL (8.4-10.2); Carbon Dioxide 19 mmol/L (22-29); Chloride 112 mmol/L (96-108); Creatinine Clr Calc Pharmacy 11.6; Estimated Glomerular Filt Rate 11; Potassium 4.7 mmol/L (3.3-5.1); Sodium 139 mmol/L (135-145)
[2025-04-25 08:12] LABS: Glucose, Whole Blood 126 mg/dL (60-115)
--- NOTE | 2025-04-25 09:46 | P.PNIM_ITS ---
Subjective Subjective Date of Service: 04/25/25 Interval History: ankle improving BP better Review of Systems Review of Systems: Yes all other systems are reviewed and are negative Physical Exam 2 Vital Signs: Vital Signs: Last Vital Signs Temp 97.7 F 04/25/25 07:54 Pulse 71 04/25/25 07:54 Resp 16 04/25/25 07:54 BP 124/59 L 04/25/25 07:54 Pulse Ox 96 04/25/25 07:54 O2 Del Method Room Air 04/25/25 07:54 O2 Flow Rate 10 04/22/25 19:18 BMI result Body Mass Index 27.4 Gen: in no acute distress HEENT: sclera anicteric, moist mucus membranes Neck: supple Lungs: clear to auscultation bilaterally Heart: regular rate and rhythm, no murmurs Abd: soft, non-tender, non-distended Ext: no edema, R ankle slightly swollen and pain with ROM Skin: warm/well-perfused Neuro: alert and oriented x3, no focal findings Psych: appropriate affect Objective Data Active Medications Acetaminophen (Acetaminophen 325 Mg Tablet) 650 mg PO Q6H PRN PRN Reason: Pain, Mild 1-3,fever,headache Last Admin: 04/24/25 12:48 Dose: 650 mg Documented By: KATIE Albuterol/Ipratropium (Albuterol/Iprat 2.5/0.5mg 3 Ml Ampul.Neb) 3 ml INHALE Q4H PRN PRN Reason: Shortness of Breath/Wheezing Amlodipine Besylate (Amlodipine Besylate 10 Mg Tablet) 10 mg PO DAILY [facility]; Protocol Last Admin: 04/24/25 10:10 Dose: 10 mg Documented By: KATIE Atorvastatin Calcium (Atorvastatin Calcium 20 Mg Tablet) 20 mg PO DAILY [facility] Last Admin: 04/24/25 10:10 Dose: 20 mg Documented By: KATIE Calcium Carbonate (Calcium Carbonate 750 Mg Tab.Chew) 750 mg PO Q4H PRN PRN Reason: Heartburn Carvedilol (Carvedilol 25 Mg Tablet) 25 mg PO BID [facility]; Protocol Last Admin: 04/24/25 22:32 Dose: 25 mg Documented By: LISBET Dextrose (Dextrose 50 % 25 Gm/50 Ml Syringe) 25 gm IVPUSH Q15M PRN; Protocol PRN Reason: per Hypoglycemia Standing Ord. Gabapentin (Gabapentin 100 Mg Capsule) 100 mg PO TID [facility] Last Admin: 04/24/25 22:32 Dose: 100 mg Documented By: LISBET Glucose (Glucose Gel 15 Gm Gel..Gram.) 15 gm PO Q15M PRN; Protocol PRN Reason: per Hypoglycemia Standing Ord. Heparin Sodium (Porcine) (Heparin Sodium,Porcine 5,000 Unit/Ml Vial) 5,000 unit SUBCUT Q12H [facility] Last Admin: 04/24/25 22:40 Dose: 5,000 unit Documented By: LISBET Hydralazine HCl (Hydralazine Hcl 50 Mg Tablet) 100 mg PO TID [facility]; Protocol Last Admin: 04/24/25 22:31 Dose: 100 mg Documented By: LISBET Hydromorphone HCl (Hydromorphone Hcl 0.5 Mg/0.5 Ml Syringe) 0.25 mg IVPUSH Q4H PRN; Protocol PRN Reason: Pain, Severe (Pain Scale 7-10) Last Admin: 04/23/25 16:47 Dose: 0.25 mg Documented By: JORGE Lactated Ringer's (Lr) 1,000 mls @ 100 mls/hr IVCONT .Q10H [facility] Last Infusion: 04/25/25 06:03 Dose: 100 mls/hr Documented By: LISBET Insulin Glargine (Insulin Glargine,Hum.Rec.Anlog 100 Unit/Ml 10 Ml Vial) 8 unit SUBCUT BEDTIME [facility] Last Admin: 04/24/25 22:32 Dose: 8 unit Documented By: LISBET Insulin Human Lispro (Insulin Lispro 100 Unit/Ml 3 Ml Vial) 0 unit SUBCUT QIDACHS [facility]; Protocol Last Admin: 04/25/25 09:05 Dose: Not Given Documented By: DASHAWN Non-Admin Reason: No Insulin Coverage Lidocaine (Lidocaine 4 % Patch Adh..Patch) 1 patch TRANSDERMA DAILY PRN PRN Reason: Pain Last Admin: 04/22/25 14:36 Dose: 1 patch Documented By: GUSTAVO Lorazepam (Lorazepam 0.5 Mg Tablet) 0.5 mg PO Q8H PRN PRN Reason: Anxiety Last Admin: 04/24/25 12:48 Dose: 0.5 mg Documented By: KATIE Magnesium Hydroxide (Milk Of Magnesia 30 Ml Oral.Susp) 30 ml PO DAILY PRN PRN Reason: Constipation Melatonin (Melatonin 3 Mg Tablet) 6 mg PO BEDTIME PRN PRN Reason: Insomnia Last Admin: 04/23/25 20:56 Dose: 6 mg Documented By: AIDE Ondansetron HCl (Ondansetron Hcl 4 Mg/2 Ml Vial) 4 mg IVPUSH Q8H PRN PRN Reason: Nausea and Vomiting Last Admin: 04/22/25 00:27 Dose: 4 mg Documented By: NAYE Oxycodone HCl (Oxycodone Hcl Immed Release 5 Mg Tablet) 5 mg PO Q4H PRN PRN Reason: Pain, Severe (Pain Scale 7-10) Last Admin: 04/23/25 09:12 Dose: 5 mg Documented By: JORGE Polyethylene Glycol (Polyethylene Glycol 3350 17 Gm Powd.Pack) 17 gm PO DAILY PRN PRN Reason: Constipation Primidone (Primidone 50 Mg Tablet) 50 mg PO BEDTIME [facility] Last Admin: 04/24/25 22:32 Dose: 50 mg Documented By: LISBET Primidone (Primidone 50 Mg Tablet) 100 mg PO DAILY [facility] Last Admin: 04/24/25 10:10 Dose: 100 mg Documented By: KATIE Senna (Sennosides 8.6 Mg Tablet) 17.2 mg PO BEDTIME [facility] Last Admin: 04/24/25 22:31 Dose: 17.2 mg Documented By: LISBET Sodium Chloride (0.9 % Sodium Chloride Flush 3 Ml Syringe) 3 ml IVFLUSH QSHIFT [facility] Last Admin: 04/24/25 22:33 Dose: 3 ml Documented By: LISBET Ursodiol (Ursodiol 300 Mg Capsule) 600 mg PO BID [facility] Last Admin: 04/24/25 22:31 Dose: 600 mg Documented By: LISBET Labs 04/23/25 05:53 04/25/25 06:06 Labs: Laboratory Results - last 24 hr 04/23/25 04/24/25 04/24/25 11:06 11:28 15:55 Hold Purple Top Anion Gap Estim Creat Clear Calc Estimated GFR POC Glucose 202 H 261 H Random Glucose Calcium A.phagocytophil DNA PCR NOT DETECTED Babesia microti DNA PCR NOT DETECTED Borrelia sp DNA (PCR) NOT DETECTED Lyme Progressive Test TNP Borrelia miyamotoi (PCR) NOT DETECTED E.chaffeensis DNA (PCR) NOT DETECTED Tick-borne Disease PCR SEE NOTE 04/24/25 04/25/25 04/25/25 20:19 06:05 06:06 Hold Purple Top SEE NOTE Anion Gap 13 Estim Creat Clear Calc 11.6 Estimated GFR 11 POC Glucose 246 H Random Glucose 125 H Calcium 8.1 L A.phagocytophil DNA PCR Babesia microti DNA PCR Borrelia sp DNA (PCR) Lyme Progressive Test Borrelia miyamotoi (PCR) E.chaffeensis DNA (PCR) Tick-borne Disease PCR 04/25/25 07:49 Hold Purple Top Anion Gap Estim Creat Clear Calc Estimated GFR POC Glucose 126 H Random Glucose Calcium A.phagocytophil DNA PCR Babesia microti DNA PCR Borrelia sp DNA (PCR) Lyme Progressive Test Borrelia miyamotoi (PCR) E.chaffeensis DNA (PCR) Tick-borne Disease PCR Assessment and Plan (1) Chronic kidney disease: Status: Acute Plan d5, 79yo M with DM2 + neuropathy, cirrhosis [PBC? on ursodiol], CKD, HTN, HLD, OA brought in with RLE pain s/p mechanical fall, admitted for LEA/CKD, HTN urgency HTN urgency - continue amlodipine, added hydralazine + carvedilol and BP is much better controlled LEA/CKD4, nephrotic-range proteinuria - unknown baseline, improved somewhat with IV hydration and will continue 1 more day but this may be her baseline Cr, no TANNER by Doppler, Nephrology consulted + following, needs better BP control in general; followed by Dr Nelson as outpt hyperK - resolved p Lokelma fall ankle swelling - no fracture/fluid collection on CT; likely sprain - PT eval: STR - tickborne panel/Lyme serology engative anemia - likely anemia of CKD, H+H stable cirrhosis- ?PBC - continue ursodiol HLD - statin DM2 - basal-bolus insulin; decreased basal dose given recent hypoglycemia VTE ppx - UFH dispo - STR but pt refusing; likely home with VNA tomorrow if SCr stable In my clinical judgment, the patient requires continued inpatient hospitalization for the following reasons: LEA, BP control Total time managing care of this patient today: 35 minutes. Quality Stroke Does the patient have a stroke diagnosis?: No Reason for No Anti-thrombotic by Day Two: N/A - Med Ordered VTE Prior VTE?: No VTE Risk Level:: Medical - moderate - high VTE Device Contraindication: N/A - Device Ordered VTE Drug Contraindication: N/A - Med Ordered
[2025-04-25 11:43] LABS: Glucose, Whole Blood 225 mg/dL (60-115)
[2025-04-25] MEDS: Lactated Ringers 1,000 ML 100 ML IVCONT (15:19)
[2025-04-25] MEDS: 0.9 % Sodium Chloride Flush 3 ML SYRINGE IVFLUSH ×2 (15:20→20:59)
[2025-04-25 16:12] LABS: Glucose, Whole Blood 204 mg/dL (60-115)
[2025-04-25 19:41] LABS: Glucose, Whole Blood 210 mg/dL (60-115)
[2025-04-25] MEDS: oxyCODONE HCl Immed Release 5 MG TABLET PO (19:53)
[2025-04-25] MEDS: Insulin Glargine,Hum.rec.anlog 100 UNIT/ML 10 ML VIAL 8 UNIT SUBCUT (20:58)
[2025-04-26] VITALS (9 sets, daily range): BP systolic 130–188; BP diastolic 60–77; PULSE 59–82; RESP 14–18; TEMP 36.3–36.8; O2SAT 92–96
[2025-04-26] MEDS: Lactated Ringers 1,000 ML 100 ML IVCONT (01:57)
[2025-04-26 06:42] LABS: Anion Gap 13 (12-20); Blood Urea Nitrogen 59 mg/dL (9-16); Calcium 8.0 mg/dL (8.4-10.2); Carbon Dioxide 20 mmol/L (22-29); Chloride 114 mmol/L (96-108); Potassium 4.9 mmol/L (3.3-5.1); Sodium 142 mmol/L (135-145)
[2025-04-26 07:25] LABS: Glucose, Whole Blood 115 mg/dL (60-115)
[2025-04-26 07:32] LABS: Creatinine Clr Calc Pharmacy 10.6; Estimated Glomerular Filt Rate 10
--- NOTE | 2025-04-26 07:35 | P.PNIM_ITS ---
Subjective Subjective Date of Service: 04/26/25 Interval History: ankle improved SCr worse BP 182/75 Review of Systems Review of Systems: Yes all other systems are reviewed and are negative Physical Exam 2 Vital Signs: Vital Signs: Last Vital Signs Temp 98.3 F 04/26/25 07:00 Pulse 82 04/26/25 07:00 Resp 14 04/26/25 07:00 BP 182/75 H 04/26/25 07:00 Pulse Ox 95 04/26/25 07:00 O2 Del Method Room Air 04/26/25 07:00 O2 Flow Rate 10 04/22/25 19:18 BMI result Body Mass Index 27.4 Gen: in no acute distress HEENT: sclera anicteric, moist mucus membranes Neck: supple Lungs: clear to auscultation bilaterally Heart: regular rate and rhythm, no murmurs Abd: soft, non-tender, non-distended Ext: no edema, R ankle slightly swollen and pain with ROM Skin: warm/well-perfused Neuro: alert and oriented x3, no focal findings Psych: appropriate affect Objective Data Active Medications Acetaminophen (Acetaminophen 325 Mg Tablet) 650 mg PO Q6H PRN PRN Reason: Pain, Mild 1-3,fever,headache Last Admin: 04/25/25 11:51 Dose: 650 mg Documented By: RODRÍGUEZ Albuterol/Ipratropium (Albuterol/Iprat 2.5/0.5mg 3 Ml Ampul.Neb) 3 ml INHALE Q4H PRN PRN Reason: Shortness of Breath/Wheezing Atorvastatin Calcium (Atorvastatin Calcium 20 Mg Tablet) 20 mg PO DAILY [facility] Last Admin: 04/25/25 10:13 Dose: 20 mg Documented By: DASHAWN Calcium Carbonate (Calcium Carbonate 750 Mg Tab.Chew) 750 mg PO Q4H PRN PRN Reason: Heartburn Carvedilol (Carvedilol 25 Mg Tablet) 25 mg PO BID [facility]; Protocol Last Admin: 04/25/25 20:55 Dose: 25 mg Documented By: NAVEEN Dextrose (Dextrose 50 % 25 Gm/50 Ml Syringe) 25 gm IVPUSH Q15M PRN; Protocol PRN Reason: per Hypoglycemia Standing Ord. Gabapentin (Gabapentin 100 Mg Capsule) 100 mg PO TID [facility] Last Admin: 04/25/25 20:56 Dose: 100 mg Documented By: NAVEEN Glucose (Glucose Gel 15 Gm Gel..Gram.) 15 gm PO Q15M PRN; Protocol PRN Reason: per Hypoglycemia Standing Ord. Heparin Sodium (Porcine) (Heparin Sodium,Porcine 5,000 Unit/Ml Vial) 5,000 unit SUBCUT Q12H [facility] Last Admin: 04/25/25 23:21 Dose: 5,000 unit Documented By: NAVEEN Hydralazine HCl (Hydralazine Hcl 50 Mg Tablet) 100 mg PO TID [facility]; Protocol Last Admin: 04/25/25 20:56 Dose: 100 mg Documented By: NAVEEN Hydromorphone HCl (Hydromorphone Hcl 0.5 Mg/0.5 Ml Syringe) 0.25 mg IVPUSH Q4H PRN; Protocol PRN Reason: Pain, Severe (Pain Scale 7-10) Last Admin: 04/23/25 16:47 Dose: 0.25 mg Documented By: JORGE Lactated Ringer's (Lr) 1,000 mls @ 100 mls/hr IVCONT .Q10H [facility] Last Admin: 04/26/25 01:57 Dose: 100 mls/hr Documented By: NAVEEN Insulin Glargine (Insulin Glargine,Hum.Rec.Anlog 100 Unit/Ml 10 Ml Vial) 8 unit SUBCUT BEDTIME [facility] Last Admin: 04/25/25 20:58 Dose: 8 unit Documented By: NAVEEN Insulin Human Lispro (Insulin Lispro 100 Unit/Ml 3 Ml Vial) 0 unit SUBCUT QIDACHS [facility]; Protocol Last Admin: 04/26/25 07:27 Dose: Not Given Documented By: ARTURO Non-Admin Reason: No Insulin Coverage Lidocaine (Lidocaine 4 % Patch Adh..Patch) 1 patch TRANSDERMA DAILY PRN PRN Reason: Pain Last Admin: 04/22/25 14:36 Dose: 1 patch Documented By: GUSTAVO Lorazepam (Lorazepam 0.5 Mg Tablet) 0.5 mg PO Q8H PRN PRN Reason: Anxiety Last Admin: 04/25/25 20:56 Dose: 0.5 mg Documented By: NAVEEN Magnesium Hydroxide (Milk Of Magnesia 30 Ml Oral.Susp) 30 ml PO DAILY PRN PRN Reason: Constipation Melatonin (Melatonin 3 Mg Tablet) 6 mg PO BEDTIME PRN PRN Reason: Insomnia Last Admin: 04/23/25 20:56 Dose: 6 mg Documented By: AIDE Nifedipine (Nifedipine Er 60 Mg Tab.Er.24) 60 mg PO DAILY [facility]; Protocol Ondansetron HCl (Ondansetron Hcl 4 Mg/2 Ml Vial) 4 mg IVPUSH Q8H PRN PRN Reason: Nausea and Vomiting Last Admin: 04/22/25 00:27 Dose: 4 mg Documented By: NAYE Oxycodone HCl (Oxycodone Hcl Immed Release 5 Mg Tablet) 5 mg PO Q4H PRN PRN Reason: Pain, Severe (Pain Scale 7-10) Last Admin: 04/25/25 19:53 Dose: 5 mg Documented By: NAVEEN Polyethylene Glycol (Polyethylene Glycol 3350 17 Gm Powd.Pack) 17 gm PO DAILY PRN PRN Reason: Constipation Primidone (Primidone 50 Mg Tablet) 50 mg PO BEDTIME [facility] Last Admin: 04/25/25 20:56 Dose: 50 mg Documented By: NAVEEN Primidone (Primidone 50 Mg Tablet) 100 mg PO DAILY [facility] Last Admin: 04/25/25 10:13 Dose: 100 mg Documented By: DASHAWN Senna (Sennosides 8.6 Mg Tablet) 17.2 mg PO BEDTIME [facility] Last Admin: 04/25/25 20:56 Dose: 17.2 mg Documented By: NAVEEN Sodium Chloride (0.9 % Sodium Chloride Flush 3 Ml Syringe) 3 ml IVFLUSH QSHIFT [facility] Last Admin: 04/26/25 07:21 Dose: Not Given Documented By: ARTURO Non-Admin Reason: IV Running Ursodiol (Ursodiol 300 Mg Capsule) 600 mg PO BID [facility] Last Admin: 04/25/25 20:55 Dose: 600 mg Documented By: NAVEEN Labs 04/23/25 05:53 04/26/25 05:46 Labs: Laboratory Results - last 24 hr 04/25/25 04/25/25 04/25/25 07:49 11:40 16:06 Hold Purple Top Anion Gap Estim Creat Clear Calc Estimated GFR POC Glucose 126 H 225 H 204 H Random Glucose Calcium 04/25/25 04/26/25 04/26/25 19:37 05:46 07:07 Hold Purple Top SEE NOTE Anion Gap 13 Estim Creat Clear Calc 10.6 Estimated GFR 10 POC Glucose 210 H 115 Random Glucose 124 H Calcium 8.0 L Assessment and Plan (1) Chronic kidney disease: Status: Acute Plan d6, 79yo M with DM2 + neuropathy, cirrhosis [PBC? on ursodiol], CKD, HTN, HLD, OA brought in with RLE pain s/p mechanical fall, admitted for LEA/CKD, HTN urgency HTN urgency - change amlodipine to nifedipine, on max doses of hydralazine + carvedilol, needs better control LEA/CKD4, nephrotic-range proteinuria - SCr worse today despite IV hydration, unknown baseline but her new baseline may be around 4, no TANNER by Doppler, discuss with Nephrology, needs better BP control in general, followed by Dr Nelson as outpt hyperK - resolved p Lokelma fall ankle swelling - no fracture/fluid collection on CT; likely sprain - PT eval: STR - tickborne panel/Lyme serology negative anemia - likely anemia of CKD, H+H stable cirrhosis- ?PBC - continue ursodiol HLD - statin DM2 - basal-bolus insulin; decreased basal dose given recent hypoglycemia VTE ppx - UFH dispo - STR but pt refusing; likely home with VNA once renal function stable and BP controlled In my clinical judgment, the patient requires continued inpatient hospitalization for the following reasons: LEA, BP control Total time managing care of this patient today: 35 minutes. Quality Stroke Does the patient have a stroke diagnosis?: No Reason for No Anti-thrombotic by Day Two: N/A - Med Ordered VTE Prior VTE?: No VTE Risk Level:: Medical - moderate - high VTE Device Contraindication: N/A - Device Ordered VTE Drug Contraindication: N/A - Med Ordered
[2025-04-26] MEDS: NIFEdipine ER 60 MG TAB.ER.24 PO (09:22)
--- NOTE | 2025-04-26 10:00 | PM.PNNEP ---
Subjective Subjective Date of Service: 04/26/25 Interval history: Pt here with ankle injury after fall at home. Following for LEA on CKD (Dr Nelson is interactive web developer as outpatient). Urine protein/creatinine ratio is 7.8 grams creatinine on presentation 4.19 on 04/21. 8/ creatinine 3.86. 8/8 creatinine 3.54 8/9 3.78 8/10 3.98 8/ 4.33 states she has some abdominal cramping today. Otherwise denies new concerns/complaints. denies chest pain, shortness of breath, flank pain, urinary symptoms. Physical Exam Vital Signs: Vital Signs: Last Vital Signs Temp 97.3 F 04/26/25 11:42 Pulse 66 04/26/25 11:42 Resp 14 04/26/25 11:42 BP 148/62 H 04/26/25 11:42 Pulse Ox 96 04/26/25 11:42 O2 Del Method Room Air 04/26/25 11:42 O2 Flow Rate 10 04/22/25 19:18 BMI result Body Mass Index 27.4 Const: General: no acute distress, alert and awake Resp: Effort & Inspection: normal respiratory effort and able to speak in complete sentences Auscultation: clear to auscultation bilaterally Cardio: Rate: regular rate Rhythm: regular rhythm Heart sounds: S1 normal heart sound present and S2 normal heart sound present GI: Palpation (GI): Soft to palpation and nontender : General: Yes no CVA tenderness Back/Spine/Pelvis: Back: no CVA tenderness Skin: Rashes: no rashes Extrem: General: No edema Objective Data Labs 04/23/25 05:53 04/26/25 05:46 Labs: Laboratory Results - last 24 hr 04/25/25 04/25/25 04/26/25 16:06 19:37 05:46 Hold Purple Top SEE NOTE Sodium 142 Potassium 4.9 Chloride 114 H Carbon Dioxide 20 L Anion Gap 13 BUN 59 H Creatinine 4.33 H* Estim Creat Clear Calc 10.6 Estimated GFR 10 POC Glucose 204 H 210 H Random Glucose 124 H Calcium 8.0 L 04/26/25 04/26/25 07:07 11:05 Hold Purple Top Sodium Potassium Chloride Carbon Dioxide Anion Gap BUN Creatinine Estim Creat Clear Calc Estimated GFR POC Glucose 115 212 H Random Glucose Calcium Procedures Date of Service Date of Service: 04/26/25 Assessment & Plan Assessment and plan (1) Acute kidney injury: Status: Acute (2) Chronic kidney disease: Status: Acute (3) Proteinuria: Status: Acute Plan LEA on CKD- baseline renal function unknown given significant proteinuria over two years ago, likely has more advanced renal disease at this time, unclear but creatinine may not be far from baseline at this time- will continue to monitor. given elevated blood pressures recommend discontinuing IVF. CT ruled out obstruction. UA with significant proteinuria, chronic, no blood or other cells. Urine protein/creatinine ratio 7.8 grams. blood pressures suboptimal- continue amlodipien 10mg daily and med adjustments from this a.m. hydralazine 100mg PO TID; increase carvedilol to 12.5mg PO BID. Discontinue IVF. May consider adding isosorbide or clonidine if blood pressures remain elevated with fluid discontinuation. recommend avoiding nephrotoxins recommend regular blood pressure checks and close I&O monitoring recommend daily electrolyte and renal function studies continue supportive care Discussed with Dr Purvis. Time Spent With Patient Time: Total time managing care of this patient today ____ minutes. Progress Note: Quality Stroke Does the patient have a stroke diagnosis?: No Reason for No Anti-thrombotic by Day Two: N/A - Med Ordered
[2025-04-26 11:12] LABS: Glucose, Whole Blood 212 mg/dL (60-115)
[2025-04-26] MEDS: oxyCODONE HCl Immed Release 5 MG TABLET PO (12:32)
--- NOTE | 2025-04-26 12:57 | MHC.CM.PN ---
Per MD rounds patient not medically cleared for dc. CM will continue to follow.
[2025-04-26] MEDS: 0.9 % Sodium Chloride Flush 3 ML SYRINGE IVFLUSH ×2 (15:24→21:16)
[2025-04-26 16:26] LABS: Glucose, Whole Blood 234 mg/dL (60-115)
[2025-04-26 20:02] LABS: Glucose, Whole Blood 194 mg/dL (60-115)
[2025-04-26] MEDS: Insulin Glargine,Hum.rec.anlog 100 UNIT/ML 10 ML VIAL 8 UNIT SUBCUT (21:20)
[2025-04-27] VITALS (13 sets, daily range): BP systolic 131–168; BP diastolic 60–70; PULSE 58–75; RESP 14–18; TEMP 36.2–36.9; O2SAT 93–97
[2025-04-27 06:57] LABS: Anion Gap 11 (12-20); Blood Urea Nitrogen 61 mg/dL (9-16); Calcium 8.1 mg/dL (8.4-10.2); Carbon Dioxide 20 mmol/L (22-29); Chloride 115 mmol/L (96-108); Creatinine Clr Calc Pharmacy 10.5; Estimated Glomerular Filt Rate 10; Potassium 5.2 mmol/L (3.3-5.1); Sodium 141 mmol/L (135-145)
[2025-04-27 07:38] LABS: Glucose, Whole Blood 108 mg/dL (60-115)
[2025-04-27] MEDS: 0.9 % Sodium Chloride Flush 3 ML SYRINGE IVFLUSH ×2 (09:01→15:04)
[2025-04-27] MEDS: NIFEdipine ER 60 MG TAB.ER.24 PO (09:02)
[2025-04-27] MEDS: URSODIOL 500 MG 500 EACH PO ×2 (09:07→22:31)
--- NOTE | 2025-04-27 09:54 | P.PNNP_ITS ---
Subjective Subjective Date of Service: 04/27/25 Interval history: Pt here with ankle injury after fall at home. Following for LEA on CKD (Dr Nelson is professor of kinesiology as outpatient). Urine protein/creatinine ratio is 7.8 grams creatinine on presentation 4.19 on 04/21. 8/7 creatinine 3.86. 8/8 creatinine 3.54 8/9 3.78 8/10 3.98 8/11 4.33 8.12 4.38 states abdominal cramping has improved, she slept well last night. states some mild ankle swelling. Otherwise denies new concerns/complaints. denies chest pain, shortness of breath, flank pain, urinary symptoms. Physical Exam 2 Vital Signs: Vital Signs: Last Vital Signs Temp 97.2 F 04/27/25 07:31 Pulse 58 04/27/25 09:01 Resp 17 04/27/25 07:31 BP 168/62 H 04/27/25 09:02 Pulse Ox 97 04/27/25 07:31 O2 Del Method Room Air 04/27/25 07:31 O2 Flow Rate 10 04/22/25 19:18 BMI result Body Mass Index 27.4 Const: General: no acute distress, alert and awake Resp: Effort & Inspection: normal respiratory effort and able to speak in complete sentences Auscultation: clear to auscultation bilaterally Cardio: Rate: regular rate Rhythm: regular rhythm Heart sounds: S1 normal heart sound present and S2 normal heart sound present GI: Palpation (GI): Soft to palpation and nontender : General: Yes no CVA tenderness Back/Spine/Pelvis: Back: no CVA tenderness Skin: Rashes: no rashes Extrem: General: Yes edema (+1 pitting bilateral ankle swelling) Objective Data Labs 04/23/25 05:53 04/27/25 05:27 Labs: Laboratory Results - last 24 hr 04/26/25 04/26/25 04/26/25 11:05 16:22 19:57 Hold Purple Top Sodium Potassium Chloride Carbon Dioxide Anion Gap BUN Creatinine Estim Creat Clear Calc Estimated GFR POC Glucose 212 H 234 H 194 H Random Glucose Calcium 04/27/25 04/27/25 05:27 07:33 Hold Purple Top SEE NOTE Sodium 141 Potassium 5.2 H Chloride 115 H Carbon Dioxide 20 L Anion Gap 11 L BUN 61 H Creatinine 4.38 H* Estim Creat Clear Calc 10.5 Estimated GFR 10 POC Glucose 108 Random Glucose 110 Calcium 8.1 L Procedures Date of Service Date of Service: 04/27/25 Assessment & Plan Assessment and plan (1) Acute kidney injury: Status: Acute (2) Chronic kidney disease: Status: Acute (3) Proteinuria: Status: Acute Plan LEA on CKD- baseline renal function unknown- likely at baseline CKD. Creatinine is fairly stable given significant proteinuria over two years ago, likely has more advanced renal disease at this time, unclear but creatinine may not be far from baseline at this time- will continue to monitor. CT ruled out obstruction. UA with significant proteinuria, chronic, no blood or other cells. Urine protein/creatinine ratio 7.8 grams. blood pressures habe improved with IVF discontinuation but remain suboptimal- continue amlodipien 10mg daily and med adjustments from this a.m. hydralazine 100mg PO TID; increase carvedilol to 12.5mg PO BID. Add isosorbide 30mg PO daily. recommend avoiding nephrotoxins continue supportive care patient's kidney disease is fairly stable, though advanced. I have advised her she should follow up closely with her outpatient professor of kinesiology when she goes home. Discussed with Dr Purvis. Time Spent With Patient Time: Total time managing care of this patient today ____ minutes. Progress Note: Quality Stroke Does the patient have a stroke diagnosis?: No Reason for No Anti-thrombotic by Day Two: N/A - Med Ordered
[2025-04-27 11:28] LABS: Glucose, Whole Blood 216 mg/dL (60-115)
[2025-04-27] MEDS: oxyCODONE HCl Immed Release 5 MG TABLET PO ×2 (11:34→17:26)
--- NOTE | 2025-04-27 14:21 | PM.DS ---
DS: Providers Provider Date of Service: 04/27/25 <Mary Kate Blackwood NP - Last Filed: 04/27/25 14:23> Date of admission: 04/21/25 23:14 <Mary Kate Blackwood NP - Last Filed: 04/27/25 14:23> Date of discharge: 04/27/25 <Mary Kate Blackwood NP - Last Filed: 04/27/25 14:23> Primary care physician: NITHYA Lott <Mary Kate Blackwood NP - Last Filed: 04/27/25 14:23> Consults: 04/21/25 23:21 Consult to Nephrology Routine Consulting Provider: [facility] Reason for consultation: LEA on CKD Has provider been notified: No <Mary Kate Blackwood NP - Last Filed: 04/27/25 14:23> DS: Diagnosis Discharge Diagnosis (1) Acute kidney injury: Status: Acute <Mary Kate Blackwood NP - Last Filed: 04/27/25 14:23> (2) Chronic kidney disease: Status: Acute <Mary Kate Blackwood NP - Last Filed: 04/27/25 14:23> (3) Proteinuria: Status: Acute <Mary Kate Blackwood NP - Last Filed: 04/27/25 14:23> DS: Summary Hospital Course Hospital Course: Pt is a 79 yo female with PMH IDDM with recent hypoglycemia, diabetic neuropathy, cirrhosis of the liver on urosdiol, chronic kidney disease, hypertension, HLD, osteoarthritis was brought into the emergency department by her daughter as patient was reluctant to be seen for ongoing right lower extremity pain, swelling and now inability to bear weight status post a mechanical fall that was unwitnessed 2 days prior. Patient states she missed a step and fell and braced her fall with her wrist and arms and was able to get back up on her own. Patient denies any hit to the head or loss of consciousness. X-ray indicates possible small fluid collection in the tibiotalar joint with no evidence of dislocation or fracture. Radiologist recommend CT scan of the right ankle for more accurate assessment. Patient noted to be significantly hypertensive with systolic greater than 200 initially. Patient did receive hydralazine 20 mg IV x1 with good effect but patient was symptomatic with nausea and dry heaves after receiving this dose. Those symptoms have since resolved and blood pressure systolic is currently 133. EKG does note a sinus rhythm with first-degree AV block but the NV is 210. Patient does not normally take AV inge blocking agents. Heart rate 68. Patient normally only on amlodipine for blood pressure. Incidentally workup in the ED notes LEA on chronic kidney disease most likely. Creatinine 4.19, creatinine clearance 11 and GFR 10. UA noted for +3 proteinuria but negative for UTI. Patient does follow with a moulder operator in the outpatient setting. No recent labs to compare to. In addition patient has hyperkalemia and was treated with Lokelma in the ED. CT of the abdomen and pelvis were completed which was negative for any renal calculi or hydronephrosis. Multiple bilateral renal lesions considered nonspecific were found and could represent proteinaceous cysts. Follow-up CT with IV contrast is recommended. Also no evidence of bowel obstruction or free air. Chronic liver morphology/ perihepatic ascites is noted and patient does have history of cirrhosis of liver and is followed by GI specialist locally. AST , 117 ALT 114 and alk-phos 187. She also has a noted pancytopenia with a white blood count of 4.3, H and H of 9 and 26.3 and platelet count of 122. Most likely anemia could be related to her chronic kidney disease. Patient denies any issues with spontaneous bleeding or bruising. Patient has not seen a residential field manager in the past. Patient does take insulin for her diabetes and checks her blood sugar 3 times a day. Patient states recently her blood sugars have been low especially in the morning and the lowest was 57 mg/dL. Patient did not notify her provider but was able to drink juice and eat breakfast and recovered. Patient does not believe the hypoglycemia contributed to her fall. Patient's appetite has been waxing and waning lately. Patient's daughter at the bedside and admits that patient really does not want to be admitted to the hospital but after speaking with the patient and daughter, patient understands the need for admission to address her current issues. Daughter states she is patient's healthcare proxy and patient is a full code status. Patient does not require spanish medical interpreter for interaction as she understands and speaks Micronesian. HTN urgency change amlodipine to nifedipine, on max doses of hydralazine + carvedilol, needs better control LEA/CKD4, nephrotic-range proteinuria -\\ SCr worse today despite IV hydration, unknown baseline but her new baseline may be around 4, no TANNER by Doppler, discuss with Nephrology, needs better BP control in general, followed by Dr Nelson as outpt hyperK. resolved p Lokelma fall, ankle swelling, no fracture/fluid collection on CT; likely sprain. tickborne panel/Lyme serology negative. continue with ice and hear as needed, tylenol anemia. likely anemia of CKD, H+H stable cirrhosis- ?PBC. continue ursodiol HLD. statin DM2. Treated with basal-bolus insulin. Continue home medications <Mary Kate Blackwood NP - Last Filed: 04/27/25 14:23> Time Attestation Discharge Coordination Time (in mins): 37 <Cesar Haque MD - Last Filed: 04/28/25 11:44> Quality: Safe Use of Opioids Does Pt have an Active Cancer Diagnosis on the Problem List?: No <Cesar Haque MD - Last Filed: 04/28/25 11:44> Quality: Stroke Does the patient have a stroke diagnosis?: No <Cesar Haque MD - Last Filed: 04/28/25 11:44> Physical Exam Vital Signs: Vital Signs: Last Vital Signs Temp 97.2 F 04/27/25 11:16 Pulse 75 04/27/25 11:16 Resp 16 04/27/25 11:16 BP 135/62 04/27/25 11:16 Pulse Ox 94 04/27/25 11:16 O2 Del Method Room Air 04/27/25 11:16 O2 Flow Rate 10 04/22/25 19:18 BMI result Body Mass Index 27.4 <Mary Kate Blackwood NP - Last Filed: 04/27/25 14:23> DS: Data Data Completed and Pending Labs on day of discharge: Laboratory Results - last 24 hr 04/26/25 04/26/25 04/27/25 16:22 19:57 05:27 Hold Purple Top SEE NOTE Sodium 141 Potassium 5.2 H Chloride 115 H Carbon Dioxide 20 L Anion Gap 11 L BUN 61 H Creatinine 4.38 H* Estim Creat Clear Calc 10.5 Estimated GFR 10 POC Glucose 234 H 194 H Random Glucose 110 Calcium 8.1 L 04/27/25 04/27/25 07:33 11:19 Hold Purple Top Sodium Potassium Chloride Carbon Dioxide Anion Gap BUN Creatinine Estim Creat Clear Calc Estimated GFR POC Glucose 108 216 H Random Glucose Calcium <Mary Kate Blackwood NP - Last Filed: 04/27/25 14:23> Discharge Plan Discharge Anticipated Discharge Date/Time: 04/27/25 14:11 <Mary Kate Blackwood NP - Last Filed: 04/27/25 14:23> Patient Disposition: Home Health Service <Mary Kate Blackwood NP - Last Filed: 04/27/25 14:23> Discharge Diagnosis: Hypertensive urgency LEA on CKD Hypokalemia Fall Anemia <Mary Kate Blackwood NP - Last Filed: 04/27/25 14:23> Hypertensive urgency LEA on CKD Hypokalemia Fall Anemia <Cesar Haque MD - Last Filed: 04/28/25 11:44> Referrals: [facility]Outside] - 3-5 Days Referral Note: [facility] will call you to schedule home nursing and physical therapy appointments Luci Murillo PA [Primary Care Provider, Medical] - 1 Week <Mayr Kate Balckwood NP - Last Filed: 04/27/25 14:23> Discharge Medications: New carvedilol 25 mg Tablet 25 mg PO BID Qty: 60 0RF Protocol: Hold for SBP/HR < HOLD for SBP < : 90 HOLD for HR < : 60 isosorbide mononitrate 30 mg Tablet Extended Release 24 Hr 30 mg PO DAILY Qty: 60 0RF Protocol: Hold for SBP< HOLD for SBP < : 90 nifedipine 60 mg Tablet Extended Release 24hr 60 mg PO DAILY Qty: 30 0RF Protocol: Hold for SBP< HOLD for SBP < : 90 hydralazine 50 mg Tablet 100 mg PO TID Qty: 90 0RF Protocol: Hold for SBP< HOLD for SBP < : 90 Continued (DME) lancets [FreeStyle Lancets] 28 gauge misc See Rx Instructions topical DAILY Qty: 100 5RF Rx Instructions: As directed tests 4x/day (DME) FreeStyle Lite Strips Strip See Rx Instructions .ROUTE TID Qty: 10 4RF Rx Instructions: As directed tests 4 X/day (DME) pen needle, diabetic [BD Doreen 2nd Gen Pen Needle] 32 gauge x 5/32 needle See Rx Instructions .ROUTE .COMPLEX Qty: 100 5RF Dose Instruction: USE FOUR TIMES A DAY DIRECTED Rx Instructions: USE FOUR TIMES A DAY DIRECTED atorvastatin 20 mg tablet 20 mg PO DAILY Qty: 30 4RF (DME) FreeStyle Brittnee 2 Sensor Kit See Rx Instructions .Route Qty: 2 11RF Rx Instructions: As directed (DME) FreeStyle Brittnee 2 [place] Misc See Rx Instructions .Route Qty: 1 0RF Rx Instructions: As directed insulin glargine [Lantus Solostar U-100 Insulin] 100 unit/mL (3 mL) insulin pen 16 unit subcut QPM Qty: 15 3RF acetaminophen 325 mg tablet 650 mg PO Q6H PRN (Reason: pain) Qty: 30 0RF primidone 50 mg tablet 50 mg PO BEDTIME lidocaine 5 % adhesive patch,medicated 1 patch topical DAILY PRN (Reason: Pain) Rx Instructions: leave on most painful area for up to 12 hrs Apidra SoloStar U-100 Insulin 100 unit/mL insulin pen 10 - 12 unit subcut TIDAC amlodipine 10 mg tablet 10 mg PO DAILY ursodiol 500 mg tablet 500 mg PO BID gabapentin 100 mg capsule 100 mg PO TID (DME) pen needle, diabetic [Unifine Pentips Plus] 31 gauge x 3/16 needle See Rx Instructions .ROUTE DAILY Qty: 50 Rx Instructions: As directed (DME) blood-glucose meter [FreeStyle Lite Meter] Kit See Rx Instructions .Route Qty: 1 0RF Rx Instructions: checks 4 X/day primidone [Mysoline] 50 mg tablet 100 mg PO DAILY Rx Instructions: 100mg in am 50mg in pm <Mary Kate Blackwood NP - Last Filed: 04/27/25 14:23> Discharge Orders: Discharge Order (Routine); Ordered 04/28/25 Ordered By: Cesar Haque <Mary Kate Blackwood NP - Last Filed: 04/27/25 14:23> Diet: Advance to usual diet <Mary Kate Blackwood NP - Last Filed: 04/27/25 14:23> Advance to usual diet <Cesar Haque MD - Last Filed: 04/28/25 11:44> Activity on Discharge: As tolerated <Mary Kate Blackwood NP - Last Filed: 04/27/25 14:23> As tolerated <Cesar Haque MD - Last Filed: 04/28/25 11:44> Stand Alone Forms: Patient Portal Discharge page <Mary Kate Blackwood NP - Last Filed: 04/27/25 14:23> Print Language: Micronesian <Mary Kate Blackwood NP - Last Filed: 04/27/25 14:23> Care Plan Goals: Continue all home medications <Mary Kate Blackwood NP - Last Filed: 04/27/25 14:23> Health Concerns: Hypertensive urgency LEA on CKD Hypokalemia Fall Anemia <Mary Kate Blackwood NP - Last Filed: 04/27/25 14:23> Plan of Treatment: Follow up with primary care provider as needed Take all medications as prescribed <Mary Kate Blackwood NP - Last Filed: 04/27/25 14:23> Assessment: See discharge summary <Mary Kate Blackwood NP - Last Filed: 04/27/25 14:23> Patient Instructions: Acute Kidney Injury (DC) <Mary Kate Blackwood NP - Last Filed: 04/27/25 14:23>
--- NOTE | 2025-04-27 14:48 | P.F2F_ITS ---
Service Date Service Date: 04/27/25 Encounter Date of encounter: 04/27/25 Reasons for Services Signs and symptoms assessed: Fall Hypertension LEA Reason for residential: CV/CP assess and/or care Reason for physical therapy: home safety and mobility Homebound: Leaving the home is medically contraindicated at this time without the asist of a device and/or another person due th the listed conditions above and below. Reason homebound: weakness related to hospital stay Certification: Based on the above findings, I certify that this patient is confined to the home and needs intermittent residential care, physical therapy and/or speech therapy, or continues to need occupational therapy. The patient is under my care, and I have initiated the establishment of the plan of care. The patient will be followed by a physician who will periodically review the plan of care. Time Spent With Patient Time: Total time managing care of this patient today ____ minutes.
--- NOTE | 2025-04-27 16:12 | P.PNIM_ITS ---
Subjective Subjective Date of Service: 04/27/25 Interval History: Follow up fall ankle sprain Review of Systems Review of Systems: Yes all other systems are reviewed and are negative Physical Exam 2 Exam: Exam: Appearing in no acute distress lung sounds are clear to auscultation heart regular rate rhythm, clear S1, S2 positive bowel sounds, abdomen is soft, nontender neuro patient is alert x3, no focal deficits Vital Signs: Vital Signs: Last Vital Signs Temp 97.6 F 04/27/25 15:01 Pulse 67 04/27/25 15:01 Resp 14 04/27/25 15:01 BP 131/61 04/27/25 15:03 Pulse Ox 95 04/27/25 15:01 O2 Del Method Room Air 04/27/25 15:01 O2 Flow Rate 10 04/22/25 19:18 BMI result Body Mass Index 27.4 Objective Data Active Medications Acetaminophen (Acetaminophen 325 Mg Tablet) 650 mg PO Q6H PRN PRN Reason: Pain, Mild 1-3,fever,headache Last Admin: 04/25/25 11:51 Dose: 650 mg Documented By: RODRÍGUEZ Albuterol/Ipratropium (Albuterol/Iprat 2.5/0.5mg 3 Ml Ampul.Neb) 3 ml INHALE Q4H PRN PRN Reason: Shortness of Breath/Wheezing Atorvastatin Calcium (Atorvastatin Calcium 20 Mg Tablet) 20 mg PO DAILY [facility] Last Admin: 04/27/25 09:01 Dose: 20 mg Documented By: ARTURO Calcium Carbonate (Calcium Carbonate 750 Mg Tab.Chew) 750 mg PO Q4H PRN PRN Reason: Heartburn Carvedilol (Carvedilol 25 Mg Tablet) 25 mg PO BID [facility]; Protocol Last Admin: 04/27/25 09:01 Dose: 25 mg Documented By: ARTURO Dextrose (Dextrose 50 % 25 Gm/50 Ml Syringe) 25 gm IVPUSH Q15M PRN; Protocol PRN Reason: per Hypoglycemia Standing Ord. Gabapentin (Gabapentin 100 Mg Capsule) 100 mg PO TID [facility] Last Admin: 04/27/25 15:03 Dose: 100 mg Documented By: ARTURO Glucose (Glucose Gel 15 Gm Gel..Gram.) 15 gm PO Q15M PRN; Protocol PRN Reason: per Hypoglycemia Standing Ord. Heparin Sodium (Porcine) (Heparin Sodium,Porcine 5,000 Unit/Ml Vial) 5,000 unit SUBCUT Q12H [facility] Last Admin: 04/27/25 11:00 Dose: 5,000 unit Documented By: ARTURO Hydralazine HCl (Hydralazine Hcl 50 Mg Tablet) 100 mg PO TID [facility]; Protocol Last Admin: 04/27/25 15:03 Dose: 100 mg Documented By: ARTURO Hydromorphone HCl (Hydromorphone Hcl 0.5 Mg/0.5 Ml Syringe) 0.25 mg IVPUSH Q4H PRN; Protocol PRN Reason: Pain, Severe (Pain Scale 7-10) Last Admin: 04/23/25 16:47 Dose: 0.25 mg Documented By: JORGE Insulin Glargine (Insulin Glargine,Hum.Rec.Anlog 100 Unit/Ml 10 Ml Vial) 8 unit SUBCUT BEDTIME ELIJAH Last Admin: 04/26/25 21:20 Dose: 8 unit Documented By: NAVEEN Insulin Human Lispro (Insulin Lispro 100 Unit/Ml 3 Ml Vial) 0 unit SUBCUT QIDACHS [facility]; Protocol Last Admin: 04/27/25 11:34 Dose: 4 unit Documented By: ARTURO Isosorbide Mononitrate (Isosorbide Mononitrate 30 Mg Tab.Er.24h) 30 mg PO DAILY [facility]; Protocol Last Admin: 04/27/25 10:58 Dose: 30 mg Documented By: ARTURO Lidocaine (Lidocaine 4 % Patch Adh..Patch) 1 patch TRANSDERMA DAILY PRN PRN Reason: Pain Last Admin: 04/22/25 14:36 Dose: 1 patch Documented By: GUSTAVO Lorazepam (Lorazepam 0.5 Mg Tablet) 0.5 mg PO Q8H PRN PRN Reason: Anxiety Last Admin: 04/25/25 20:56 Dose: 0.5 mg Documented By: NAVEEN Magnesium Hydroxide (Milk Of Magnesia 30 Ml Oral.Susp) 30 ml PO DAILY PRN PRN Reason: Constipation Melatonin (Melatonin 3 Mg Tablet) 6 mg PO BEDTIME PRN PRN Reason: Insomnia Last Admin: 04/26/25 21:21 Dose: 6 mg Documented By: NAVEEN Nifedipine (Nifedipine Er 60 Mg Tab.Er.24) 60 mg PO DAILY [facility]; Protocol Last Admin: 04/27/25 09:02 Dose: 60 mg Documented By: ARTURO Pt Own (Ursodiol 500 (Mg)) 500 mg PO BID [facility] Last Admin: 04/27/25 09:07 Dose: 500 mg Documented By: ARTURO Ondansetron HCl (Ondansetron Hcl 4 Mg/2 Ml Vial) 4 mg IVPUSH Q8H PRN PRN Reason: Nausea and Vomiting Last Admin: 04/26/25 18:06 Dose: 4 mg Documented By: ARTURO Oxycodone HCl (Oxycodone Hcl Immed Release 5 Mg Tablet) 5 mg PO Q4H PRN PRN Reason: Pain, Moderate(Pain Scale 4-6) Last Admin: 04/27/25 11:34 Dose: 5 mg Documented By: ARTURO Polyethylene Glycol (Polyethylene Glycol 3350 17 Gm Powd.Pack) 17 gm PO DAILY PRN PRN Reason: Constipation Primidone (Primidone 50 Mg Tablet) 50 mg PO BEDTIME [facility] Last Admin: 04/26/25 21:19 Dose: 50 mg Documented By: NAVEEN Primidone (Primidone 50 Mg Tablet) 100 mg PO DAILY [facility] Last Admin: 04/27/25 09:02 Dose: 100 mg Documented By: ARTURO Senna (Sennosides 8.6 Mg Tablet) 17.2 mg PO BEDTIME [facility] Last Admin: 04/26/25 21:19 Dose: 17.2 mg Documented By: NAVEEN Simethicone (Simethicone 80 Mg Tab.Chew) 80 mg PO QIDWMHS [facility] Last Admin: 04/27/25 10:59 Dose: 80 mg Documented By: ARTURO Sodium Chloride (0.9 % Sodium Chloride Flush 3 Ml Syringe) 3 ml IVFLUSH QSHIFT [facility] Last Admin: 04/27/25 15:04 Dose: 3 ml Documented By: ARTURO Labs 04/23/25 05:53 04/27/25 05:27 Labs: Laboratory Results - last 24 hr 04/26/25 04/26/25 04/27/25 16:22 19:57 05:27 Hold Purple Top SEE NOTE Anion Gap 11 L Estim Creat Clear Calc 10.5 Estimated GFR 10 POC Glucose 234 H 194 H Random Glucose 110 Calcium 8.1 L 04/27/25 04/27/25 07:33 11:19 Hold Purple Top Anion Gap Estim Creat Clear Calc Estimated GFR POC Glucose 108 216 H Random Glucose Calcium Assessment and Plan (1) Chronic kidney disease: Status: Acute Plan 79-year-old woman admitted for fall, LEA on CKD and hypertensive urgency Hypertensive urgency. Improving Changed amlodipine to nifedipine Continue isosorbide, carvedilol, hydralazine LEA on CKD stage 4 Baseline maybe around 4 no rash by Doppler Follows with Dr. Nelson outpatient Hypokalemia. Resolved with Lokelma Fall. Ankle swelling, likely sprain RICE No fracture or fluid collection on imaging PT recommended STR Anemia likely secondary to CKD Stable H&H Cirrhosis Continue your sodium Hyperlipidemia. Continue statin Diabetes mellitus type 2 Continue sliding scale insulin DVT prophylaxis with heparin Total time managing care of this patient today: 35 minutes. Quality Stroke Does the patient have a stroke diagnosis?: No Reason for No Anti-thrombotic by Day Two: N/A - Med Ordered VTE Prior VTE?: No VTE Risk Level:: Medical - moderate - high VTE Device Contraindication: N/A - Device Ordered VTE Drug Contraindication: N/A - Med Ordered
[2025-04-27 16:24] LABS: Glucose, Whole Blood 188 mg/dL (60-115)
[2025-04-27 20:16] LABS: Hematocrit 27.1 % (37.0-47.0); Hemoglobin 8.7 g/dl (12.0-16.0); Mean Corpuscular HGB Conc 32.1 g/dl (31.0-35.0); Mean Corpuscular Hemoglobin 31.2 pg (27.0-33.0); Mean Corpuscular Volume 97.1 fL (80.0-98.0); NRBC Abs Auto 0.000 X10*3/uL (0.0-0.012); NRBC Pct Auto 0.0 /100WBC (0.0-0.2); Platelet Count 163 X10*3/uL (160-400); Red Blood Count 2.79 X10*6/uL (4.20-5.50); White Blood Count 5.5 X10*3/uL (4.8-10.8)
[2025-04-27 20:33] LABS: Alanine Aminotransferase 67 U/L (0-31); Albumin Level 3.1 g/dL (3.5-5.0); Alkaline Phosphatase 142 U/L (39-117); Aspartate Amino Transferase 68 U/L (5-31); Total Protein 6.5 g/dL (6.5-8.0)
[2025-04-27 21:08] LABS: Glucose, Whole Blood 138 mg/dL (60-115)
[2025-04-28] VITALS: BP 107/53; PULSE 70; RESP 16; TEMP 37.2; O2SAT 93
[2025-04-28] MEDS: 0.9 % Sodium Chloride Flush 3 ML SYRINGE IVFLUSH (00:26)
[2025-04-28 02:56] VITALS: BP 149/66; PULSE 70; RESP 16; TEMP 36.1; O2SAT 93
[2025-04-28] MEDS: oxyCODONE HCl Immed Release 5 MG TABLET PO ×3 (03:35→13:07)
[2025-04-28 07:26] VITALS: BP 166/70; PULSE 84; RESP 18; TEMP 36.6; O2SAT 93
[2025-04-28 07:40] LABS: Glucose, Whole Blood 127 mg/dL (60-115)
[2025-04-28] MEDS: URSODIOL 500 MG 500 EACH PO (07:55)
[2025-04-28] MEDS: NIFEdipine ER 60 MG TAB.ER.24 PO (07:56)
[2025-04-28 08:20] LABS: Anion Gap 13 (12-20); Blood Urea Nitrogen 62 mg/dL (9-16); Calcium 8.3 mg/dL (8.4-10.2); Carbon Dioxide 20 mmol/L (22-29); Chloride 111 mmol/L (96-108); Creatinine Clr Calc Pharmacy 11.0; Estimated Glomerular Filt Rate 10; Potassium 5.3 mmol/L (3.3-5.1); Sodium 139 mmol/L (135-145)
[2025-04-28 08:29] LABS: Appearance Urine Clear; Glucose Urine UA Negative (Negative); PH 5.0 (5.0-9.0); Specific Gravity - Urine 1.010 (1.005-1.025); UMIC TRIGGER UA YES
--- NOTE | 2025-04-28 09:53 | PM.PNNEP ---
Subjective Subjective Date of Service: 04/28/25 Interval history: Pt here with ankle injury after fall at home. 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 Urine protein/creatinine ratio is 7.8 grams creatinine on presentation 4.19 on 04/21. 8/ creatinine 3.86. 8/8 creatinine 3.54 8/9 3.78 8/ 3.98 / 4.33 04/27 4.38 04/28 4.18 K 5.3 today states had leg pain last night that has resolved this a.m. Otherwise denies new concerns/complaints. denies chest pain, shortness of breath, flank pain, urinary symptoms. Physical Exam Vital Signs: Vital Signs: Last Vital Signs Temp 97.8 F 04/28/25 07:26 Pulse 84 04/28/25 07:26 Resp 18 04/28/25 07:26 BP 166/70 H 04/28/25 07:26 Pulse Ox 93 04/28/25 07:26 O2 Del Method Room Air 04/28/25 07:26 O2 Flow Rate 10 04/22/25 19:18 BMI result Body Mass Index 27.4 Const: General: no acute distress, alert and awake Resp: Effort & Inspection: normal respiratory effort and able to speak in complete sentences Auscultation: clear to auscultation bilaterally Cardio: Rate: regular rate Rhythm: regular rhythm Heart sounds: S1 normal heart sound present and S2 normal heart sound present GI: Palpation (GI): Soft to palpation and nontender : General: Yes no CVA tenderness Back/Spine/Pelvis: Back: no CVA tenderness Skin: Rashes: no rashes Extrem: General: Yes edema (trace pitting bilateral ankle swelling) Objective Data Labs 04/27/25 20:10 04/27/25 20:10 Labs: Laboratory Results - last 24 hr 04/27/25 04/27/25 04/27/25 11:19 16:14 20:10 WBC 5.5 RBC 2.79 L Hgb 8.7 L Hct 27.1 L MCV 97.1 MCH 31.2 MCHC 32.1 RDW 13.5 Plt Count 163 D MPV 10.0 Absolute Nucleated RBC 0.000 Nucleated RBC % (auto) 0.0 Sodium 139 Potassium 5.3 H Chloride 111 H Carbon Dioxide 20 L Anion Gap 13 BUN 62 H Creatinine 4.18 H* Estim Creat Clear Calc 11.0 Estimated GFR 10 POC Glucose 216 H 188 H Random Glucose 154 H Calcium 8.3 L Total Bilirubin 0.2 Direct Bilirubin < 0.2 AST 68 H ALT 67 H Alkaline Phosphatase 142 H Total Protein 6.5 Albumin 3.1 L Urine Color Urine Appearance Urine pH Ur Specific [place] Urine Protein Urine Glucose (UA) Urine Ketones Urine Blood Urine Nitrite Ur Leukocyte Esterase Urine RBC Urine WBC Ur Squamous Epith Cells Urine Bacteria Hyaline Casts 04/27/25 04/28/25 04/28/25 20:48 07:32 07:48 WBC RBC Hgb Hct MCV MCH MCHC RDW Plt Count MPV Absolute Nucleated RBC Nucleated RBC % (auto) Sodium Potassium Chloride Carbon Dioxide Anion Gap BUN Creatinine Estim Creat Clear Calc Estimated GFR POC Glucose 138 H 127 H Random Glucose Calcium Total Bilirubin Direct Bilirubin AST ALT Alkaline Phosphatase Total Protein Albumin Urine Color Yellow Urine Appearance Clear Urine pH 5.0 Ur Specific [place] 1.010 Urine Protein 300 (3+) H Urine Glucose (UA) Negative Urine Ketones Negative Urine Blood Negative Urine Nitrite Negative Ur Leukocyte Esterase Trace H Urine RBC 0-2 Urine WBC 6-10 H Ur Squamous Epith Cells 3-5 Urine Bacteria None Seen Hyaline Casts 11-20 Procedures Date of Service Date of Service: 04/28/25 Assessment & Plan Assessment and plan (1) Acute kidney injury: Status: Acute (2) Chronic kidney disease: Status: Acute (3) Proteinuria: Status: Acute Plan LEA on CKD- baseline renal function unknown- likely at baseline CKD. Creatinine is fairly stable given significant proteinuria over two years ago, likely has more advanced renal disease at this time, unclear but creatinine may not be far from baseline at this time- will continue to monitor. CT ruled out obstruction. UA with significant proteinuria, chronic, no blood or other cells. Urine protein/creatinine ratio 7.8 grams. Blood pressures have improved- have had some lower readings so continue current antihypertensive regimen for now. recommend avoiding nephrotoxins continue supportive care patient's kidney disease is fairly stable, though advanced. I have advised her and her daughter this morning she should follow up closely with her outpatient rubber tire curer when she goes home. Potassium is mildly elevated- she should be discharged on lokelma 5mg 3x weekly upon discharge until she follows up with her primary rubber tire curer. Discussed with Dr Purvis. Time Spent With Patient Time: Total time managing care of this patient today ____ minutes. Progress Note: Quality Stroke Does the patient have a stroke diagnosis?: No Reason for No Anti-thrombotic by Day Two: N/A - Med Ordered
[2025-04-28 11:27] VITALS: BP 143/61; PULSE 64; RESP 18; TEMP 36; O2SAT 96
[2025-04-28 11:40] LABS: Glucose, Whole Blood 241 mg/dL (60-115)
--- NOTE | 2025-04-28 11:48 | MHC.CM.PN ---
Patient medically cleared for dc home w/ services - [facility] will provide SN/PT. Family transport. [facility] delivered.
--- NOTE | 2025-04-29 12:01 | PC.NURSE ---
on 04/22/25 at 3883 I gave Rebekah tylenol that she requested . her pain level was a 5 but wanted the tylenol
--- NOTE | 2025-04-30 21:57 | PC.NURSE ---
04/25/20251952 pt requesting medication for 1010 pain, asked for oxycodone.
== END 2025-04-28 13:32 | disposition home health service (06) | DRG 305 ==
LOC: HO.ED 20:27 → HO.EDOVER 04-22 00:27 → HO.IMC 04-23 07:48 → HO.S3 04-25 09:02
PROVIDERS: Family Medicine; Nurse Practitioner Acute Care; Nurse Practitioner Family; Physician Assistant Medical; Admitting Provider Student in an Organized Health Care Education/Training Program; Emergency Provider Emergency Medicine; PCP Student in an Organized Health Care Education/Training Program; Visit Provider Internal Medicine
DX: I16.0 Hypertensive urgency (principal); N18.4 Chronic kidney disease, stage 4 (severe); N17.9 Acute kidney failure, unspecified; D61.818 Other pancytopenia; I12.9 Hypertensive chronic kidney disease with stage 1 through stage 4 chronic kidney disease, or unspecified chronic kidney disease; E11.22 Type 2 diabetes mellitus with diabetic chronic kidney disease; E11.40 Type 2 diabetes mellitus with diabetic neuropathy, unspecified; S93.401A Sprain of unspecified ligament of right ankle, initial encounter; W19.XXXA Unspecified fall, initial encounter; K74.3 Primary biliary cirrhosis; E87.5 Hyperkalemia; E78.5 Hyperlipidemia, unspecified; D63.1 Anemia in chronic kidney disease; Z79.4 Long term (current) use of insulin; Z79.899 Other long term (current) drug therapy
CPT/HCPCS: 36415; 73502; 73610; 73700; 74176; 76775; 80048; 80053; 80076; 81001; 82570; 82607; 82668; 82947; 83036; 83540; 83690; 83735; 83880; 83935; 84156; 84550; 85025; 85027; 85652; 85999; 86140; 86617; 86618; 87468; 87469; 87478; 87484; 87798; 93005; 93306; 93970; 93975; 97116; 97161; 99285; J0360; J1171; J1644; J2270; J2405; J7120; Q9957

== ENCOUNTER → 2025-04-21 21:08 | Outpatient (BNV) | payer MEDICARE, SELFPAY | PROVIDERS: Emergency Provider Emergency Medicine; PCP Student in an Organized Health Care Education/Training Program; Visit Provider Radiology Diagnostic Radiology | DX: R60.1 Generalized edema (principal); M25.471 Effusion, right ankle; N17.9 Acute kidney failure, unspecified; R93.6 Abnormal findings on diagnostic imaging of limbs; R10.84 Generalized abdominal pain | CPT/HCPCS: 73610; 74176 ==

== ENCOUNTER → 2025-04-21 21:16 | Outpatient (BNV) | payer MEDICARE, SELFPAY | PROVIDERS: Admitting Provider Student in an Organized Health Care Education/Training Program; Emergency Provider Emergency Medicine; PCP Student in an Organized Health Care Education/Training Program; Visit Provider Internal Medicine | DX: I44.0 Atrioventricular block, first degree (principal) | CPT/HCPCS: 93010 ==

== ENCOUNTER 2025-04-21 23:14 | Outpatient (BNV) | payer MEDICARE, SELFPAY | END 2025-04-26 19:28 | PROVIDERS: Admitting Provider Student in an Organized Health Care Education/Training Program; Emergency Provider Emergency Medicine; PCP Student in an Organized Health Care Education/Training Program; Visit Provider Radiology Diagnostic Radiology | DX: R22.43 Localized swelling, mass and lump, lower limb, bilateral (principal) | CPT/HCPCS: 93970 ==

== ENCOUNTER 2025-04-21 23:14 | Outpatient (BNV) | payer MEDICARE, SELFPAY | END 2025-04-22 04:54 | PROVIDERS: Admitting Provider Student in an Organized Health Care Education/Training Program; Emergency Provider Emergency Medicine; PCP Student in an Organized Health Care Education/Training Program; Visit Provider Radiology Diagnostic Radiology | DX: N18.9 Chronic kidney disease, unspecified (principal); N17.8 Other acute kidney failure; M65.261 Calcific tendinitis, right lower leg; R60.1 Generalized edema; R93.6 Abnormal findings on diagnostic imaging of limbs; R10.84 Generalized abdominal pain | CPT/HCPCS: 73700; 76775; 93975 ==

== ENCOUNTER 2025-04-21 23:14 | Outpatient (BNV) | payer MEDICARE, SELFPAY | END 2025-04-27 19:04 | PROVIDERS: Admitting Provider Student in an Organized Health Care Education/Training Program; Emergency Provider Emergency Medicine; PCP Student in an Organized Health Care Education/Training Program; Visit Provider Radiology Diagnostic Radiology | DX: R10.9 Unspecified abdominal pain (principal); K74.60 Unspecified cirrhosis of liver; M25.512 Pain in left shoulder | CPT/HCPCS: 73502; 74176 ==

== ENCOUNTER 2025-04-21 23:14 | Outpatient (BNV) | payer MEDICARE, SELFPAY | END 2025-04-22 07:00 | PROVIDERS: Admitting Provider Student in an Organized Health Care Education/Training Program; Emergency Provider Emergency Medicine; PCP Student in an Organized Health Care Education/Training Program; Visit Provider Internal Medicine | DX: I10 Essential (primary) hypertension (principal) | CPT/HCPCS: 93306 ==

== ENCOUNTER → 2025-04-21 23:14 | Outpatient (BNV) | payer MEDICARE, SELFPAY | PROVIDERS: Admitting Provider Student in an Organized Health Care Education/Training Program; Emergency Provider Emergency Medicine; PCP Student in an Organized Health Care Education/Training Program; Visit Provider Nurse Practitioner Family | DX: N18.9 Chronic kidney disease, unspecified (principal) | CPT/HCPCS: 99223; 99232; G0180 ==

== ENCOUNTER → 2025-04-21 23:14 | Outpatient (BNV) | payer MEDICARE, SELFPAY | PROVIDERS: Admitting Provider Student in an Organized Health Care Education/Training Program; Emergency Provider Emergency Medicine; PCP Student in an Organized Health Care Education/Training Program; Visit Provider Nurse Practitioner Family | DX: N17.9 Acute kidney failure, unspecified (principal); N18.9 Chronic kidney disease, unspecified | CPT/HCPCS: 99222 ==